=== PATIENT | male | born 1960 | race Caucasian/White ===

== ENCOUNTER 2023-05-14 10:57 | Emergency (ER) | payer OTHER, SELFPAY ==
[2023-05-14 10:57] VITALS: BMI 26.6
[2023-05-14 10:59] VITALS: BP 212/145
[2023-05-14 11:07] VITALS: BP 215/132
[2023-05-14 11:26] LABS: % Basophils 0.2 % (0-2); % Eosinophils 0.4 % (0-6); % Immature Granulocytes 0.5 % (0-0.5); % Lymphocytes 11.4 % (20.5-51.1); % Neutrophils 78.5 % (42.2-75.2); Absolute Lymphocytes 0.9 10^3/uL (1.2-3.4); Absolute Monocytes 0.7 10^3/uL (0.1-0.6); Absolute Neutrophils 6.5 10^3/uL (1.4-6.5); Hemoglobin 14.7 g/dL (13.0-18.0); Mean Corp Hgb Conc. 35.9 g/dL (33.0-37.0); Mean Corpuscular Hgb 32.7 pg (27.0-31.0); Mean Corpuscular Volume 91.1 fL (80.0-94.0); Mean Platelet Volume 9.8 fL (7.4-10.4); Nucleated Red Blood Cells % 0 % (-); Platelet Count 235 10^3/uL (130-400); Red Cell Dist. Width 12.2 % (11.5-14.5); White Blood Cell Count 8.2 10^3/uL (4.8-10.8)
[2023-05-14 11:50] LABS: ALT (SGPT) 24 U/L (0-50); AST (SGOT) 33 U/L (17-59); Albumin 4.8 g/dl (3.5-5.0); Alkaline Phosphatase 101 U/L (38-126); Blood Urea Nitrogen 13 mg/dl (9-20); Calcium 9.7 mg/dl (8.4-10.2); Carbon Dioxide 22 mmol/L (22-30); Chloride 102 mmol/L (98-107); Glucose 125 mg/dl (70-99); Potassium 4.4 mmol/L (3.5-5.1); Sodium 133 mmol/L (135-145); Total Bilirubin 1.1 mg/dl (0.2-1.3); eGFR > 60.00
[2023-05-14 12:00] VITALS: BP 194/110
[2023-05-14 13:06] VITALS: BP 184/106
[2023-05-14] MEDS: NSS 1000 IV (13:14)
[2023-05-14 13:30] VITALS: BP 175/103
--- NOTE | 2023-05-14 14:59 | ED.GENMED ---
History of Present Illness
General
Chief Complaint: Blood Pressure Problem
Source: patient
Exam Limitations: none
Time Seen by Provider: 05/14/23 12:22
Nursing documentation reviewed up to this point in time: agreed with
Travel History
Have you had any contact with someone who has COVID-19?: No
Do you have any symptoms of coronavirus? Fever > 100 degrees, chills, cough, shortness of breath, sore throat, loss of taste or smell, muscle aches, or headache?: No
History of Present Illness
History of Present Illness:
63year-old male with past ministry of anxiety presenting to the emergency department today with concerns of frequent panic attacks over the past week or so also an ongoing cough for the past few weeks. Also his blood pressure has been elevated in
the past few days at home as well as at an urgent care that he was seen in prior. He denies any specific chest pain shortness of breath fevers nausea vomiting or additional concerns.
Review of Systems
Review of Systems
Allergies reviewed?: Yes
All Other Systems: ROS reviewed and negative except as documented in HPI and ROS
Phy Exam
Physical Exam
Physical Exam:
GENERAL: Alert , in no apparent distress
EYE: pupils equal and reactive
NECK: Supple, no significant adenopathy.
ENT: o/p clr, mmm.
CARDIAC: Regular rate and rhythm .
LUNGS: Clear breath sounds bilaterally, no acute respiratory distress, no wheezes/rales/rhonchi
ABDOMEN: Soft, without focal tenderness, no r/g, no cvat
NEUROLOGICAL: Alert and oriented, no focal neuro deficits
SKIN: Warm and dry, skin intact.
MUSCULOSKELETAL: No edema, well perfused.
PSYCH: Normal and appropriate interaction.
Course
Orders/Labs/Results
Orders:
Orders
05/14/23 11:06
EKG [Electrocardiogram (*1)] Urgent
Reason for Study: Hypertension, Benign
CR Chest - 2 Views Urgent
Comment:
Reason For Exam: cough
05/14/23 11:07
EKG- Treatment ONCE
05/14/23 11:20
Complete Blood Count/With Diff Urgent
Comprehensive Metabolic Panel Urgent
05/14/23 12:44
0.9% Sodium Chloride 1000 ml [Nss] 1,000 ml IV BOLUS
Abnormal Lab Results
05/14/23
11:20
RBC 4.50 L 10^6/uL
(4.70-6.10)
MCH 32.7 H pg
(27.0-31.0)
Absolute Lymphs (auto) 0.9 L 10^3/uL
(1.2-3.4)
Absolute Monos (auto) 0.7 H 10^3/uL
(0.1-0.6)
Neutrophils % 78.5 H %
(42.2-75.2)
Lymphocytes % 11.4 L %
(20.5-51.1)
Sodium 133 L mmol/L
(135-145)
Glucose 125 H mg/dl
(70-99)
05/14/23 11:20
05/14/23 11:20
Vital Signs
Initial and Last Documented VS:
Initial Vital Signs
Temp Pulse Resp BP Pulse Ox
98.9 F 120 20 212/145 99
05/14/23 10:59 05/14/23 10:59 05/14/23 10:59 05/14/23 10:59 05/14/23 10:59
Last Documented Vital Signs
Temp Pulse Resp BP Pulse Ox
98.9 F 108 15 175/103 100
05/14/23 10:59 05/14/23 13:48 05/14/23 13:30 05/14/23 13:30 05/14/23 13:30
MDM/Problems Addressed
MDM/Problems Addressed:
63-year-old male presenting to the emergency department today with concerns of anxiety ongoing cough over the past 10 days as well as elevated blood pressure. Blood pressure was elevated as well as his pulse rate however the patient claims that he
feels very anxious and has been anxious over the past day or so. Does have a history of anxiety. Denies specific breath leg swelling recent trauma surgery immobilization, history of blood clots. Patient's lungs were clear patient generally
well-appearing no acute distress normal pulse afebrile. Labs were obtained without significant acute abnormalities. Chest x-ray without emergent pathology. Patient was monitored over roughly an hour and a half in the emergency department with
repeated blood pressures that were continually improving into the 170s systolic. Patient may have baseline elevated blood pressure and was started on lisinopril. His heart rate improving into the 80s and 90s. Very low likelihood of emergent
pathology causing this. Likely consistent with anxiety patient advised for close outpatient follow-up for reassessment. Return precautions given.
*Critical Care Note
Total Time (30-74mins, 75-104mins- exclusive of procedures): Not Applicable
ED Attending Note
-
Portions of this chart may have been created with voice recognition software.� Occasional wrong word or��sound alike� substitutions may have occurred due to the inherent limitations of voice recognition software.
Discharge Plan
Departure
Patient Disposition: Home (Routine Discharge)
Date of Disposition: 05/14/23
Time of Disposition: 14:59
Patient with high blood pressure during this ER visit?: Yes
Condition: Good
Covid-19: Not Applicable
Discharge Problem:
High blood pressure, Bronchitis
Instructions: High Blood Pressure (DC)
Prescriptions:
New
lisinopril 5 mg tablet
5 mg PO DAILY Qty: 14 0RF
Referrals:
[facility] [Provider Group]
UNKNOWN - PT DOES,NOT KNOW [Family Provider] -
Activity Restrictions/Additional Instructions:
You came to the emergency department today with concerns of ongoing cough. This is likely bronchitis and should hopefully go away over time. You can use treatments like honey to the sore throat lozenges to help with symptoms. Otherwise your blood
pressure was elevated. The blood pressure was down to 170s over 100 prior to discharge. This may indicate chronic high blood pressure. He is take lisinopril 1 tab daily and follow close with the primary care doctor within 1 week for reassessment.
Return to the emergency department for any worsening, new or concerning symptoms.
Interventions
Interventions:
*ED COVID-19 Vaccine History Last Done: 05/14/23 11:06
ED- Cardiac Assessment Last Done: 05/14/23 14:33
ED- Neurological Assessment Last Done: 05/14/23 14:33
ED- Pulmonary Assessment Last Done: 05/14/23 14:33
[2023-05-14 15:17] VITALS: BP 174/96
== END 2023-05-14 15:19 | disposition home or self-care (01) ==
LOC: EMR 10:57
PROVIDERS: EMERGENCY PHYSICIAN Emergency Medicine
DX: J40 Bronchitis, not specified as acute or chronic (principal); R03.0 Elevated blood-pressure reading, without diagnosis of hypertension; F41.9 Anxiety disorder, unspecified
CPT/HCPCS: 99285; 96360; 71046; 80053; 85025; 93005

== ENCOUNTER 2024-10-21 12:56 | Inpatient (IN) | payer OTHER, SELFPAY ==
[2024-10-21] VITALS (11 sets, daily range): BP systolic 101–145; BP diastolic 67–87; BMI 26.5; BMI 25.8
[2024-10-21 11:12] LABS: Hematocrit 41.9 % (39.0-52.0); Hemoglobin 14.3 g/dL (13.0-18.0); Mean Corp Hgb Conc. 34.1 g/dL (33.0-37.0); Mean Corpuscular Volume 93.7 fL (80.0-94.0); Nucleated Red Blood Cells % 0 % (-); Platelet Count 234 10^3/uL (130-400); Red Cell Dist. Width 12.0 % (11.5-14.5)
[2024-10-21 11:31] LABS: ALT (SGPT) 19 U/L (0-50); AST (SGOT) 32 U/L (17-59); Albumin 4.4 g/dl (3.5-5.0); Alkaline Phosphatase 94 U/L (38-126); Blood Urea Nitrogen 16 mg/dl (9-20); Calcium 10.2 mg/dl (8.4-10.2); Carbon Dioxide 20 mmol/L (22-30); Chloride 105 mmol/L (98-107); Estimated Creatinine Clearance 89 ml/min; Glucose 132 mg/dl (70-99); Potassium 4.9 mmol/L (3.5-5.1); Sodium 137 mmol/L (135-145); Total Protein 7.3 g/dl (6.3-8.2); eGFR > 60.00
[2024-10-21 11:37] LABS: Troponin I 2.530 ng/ml
--- NOTE | 2024-10-21 11:43 | ED.GENMED ---
History of Present Illness
General
Chief Complaint: Chest Pain
Source: patient
Exam Limitations: none
Time Seen by Provider: 10/21/24 11:03
History of Present Illness
History of Present Illness:
Patient presents for evaluation of chest pain. Patient noted some brief low back pain upon getting up 4 to 5 days ago. This only lasted for 10 to 15 minutes each day and resolved. However over the weekend he developed intermittent episodes of
chest tightness. Not exertional no shortness of breath no diaphoresis. He had a brief episode this morning also. Saw his primary physician who was concerned about EKG changes and sent for further evaluation
Past History
Past History
ED Past Medical History: HTN and Hypercholesterolemia
ED Past Surgical History: Orthopedic
Review of Systems
Review of Systems
All Other Systems: Not applicable
ABD/GI: Reports no symptoms
Neurological: Reports no symptoms
Phy Exam
Physical Exam
Physical Exam:
GENERAL: Alert and oriented in no apparent distress
EYE: Orbits normal.
NECK: Supple, no significant adenopathy.
ENT: Pharynx without erythema
CARDIAC: Mildly tachycardic and regular no murmur
LUNGS: Clear breath sounds,normal
ABDOMEN: Soft, without focal tenderness or distention
NEUROLOGICAL: Alert and oriented , grossly non-focal
SKIN: Warm and dry, no rash or lesion, no discoloration, skin intact.
MUSCULOSKELETAL: No edema,no deformity.Good color
PSYCH: Normal and appropriate interaction.
Scores
Heart Score for Chest Pain Patients
STEMI patient?: No
History: Moderately Suspicious
ECG: Normal
Age: >45 - <65 years
Risk Factors: 1 or 2 Risk Factors
Troponin: >/= 3 x Normal Limit
Heart Score for Chest Pain Patients: 5
Heart Score Risk: 20.3% MACE over next 6 weeks
Course
Orders/Labs/Results
Orders:
Orders
10/21/24
Electrocardiogram (*1) Stat
Comment: DONE
10/21/24 Breakfast
NPO
Allow oral meds: Yes
Allow clear liquids: No
10/21/24 11:00
Complete Blood Count/With Diff Urgent
Comprehensive Metabolic Panel Urgent
Glycohemoglobin (HgbA1c) Urgent
NT-proBNP Urgent
Troponin I Urgent
10/21/24 11:42
Heparin 4,000 units IV NOW STA
Nursing to Place Non Medication Order As Directed
Physician Order: PTT 6 hours after initial start of Heparin infusion
Above order entered?: Yes
10/21/24 11:45
Heparin 36793 Units/250 ml 25,000 units in 250 ml IV PER PROTOCOL
Weight to be used for heparin protocol in kilograms (kg):: 86.2
Protocol:: Cardiac Tx/Acute Coronary
PTT Goal Range to be used:: PTT 73 to 111 seconds
Order type:: Initial
INITIAL Infusion Dose (UNITS/KG/hr) & then follow protocol:: 12 units/kg/hr
Infusion Dose in UNITS/hr & then follow protocol (UNITS/hr):: 1,000
INFUSION RATE in mL/hr & then follow protocol (mL/hr):: 10
PTT less than or equal to 64 seconds:: Increase rate by 200 units/hr (+ 2 mL/hr)
PTT 64.1 to 72.9 seconds:: Increase rate by 100 units/hr (+ 1 mL/hr)
PTT 73 to 111 seconds:: Target Range. No change in rate.
PTT 111.1 to 130.9 seconds:: Decrease rate by 100 units/hr (- 1 mL/hr)
PTT 131 to 199.9 seconds:: HOLD for 1 hr. Then decrease rate by 200 units/hr (- 2 mL/hr)
PTT greater than or equal to 200 seconds:: HOLD for 2 hrs & Notify Provider. Then decrease by 200 units/hr (-
2 mL/hr)
Lab follow-up:: Each change, PTT q6h until 2 consecutive are therapeutic. Then PTT
daily.
10/21/24 11:47
PTT Urgent
Comment: Obtain baseline before beginning heparin infusion if not already collected
10/21/24 12:06
Aspirin Chewable [Low Strength Aspirin] 324 mg PO NOW STA
10/21/24 12:15
Admit/Transfer Patient As Directed
Co-Sign Provider:
Level of Care: Inpatient admission
Assign to:: IVU
Physician / Group: caryl
Diagnosis: chest pain
Reason for Hospitalization: chest pain
Expected length of stay greater than two midnights?: Yes
ELOS- Estimated Length of Stay in days: 3
I certify the patient meets the requirements for IP care: Yes
10/21/24 12:16
Code Status As Directed
Resuscitation Status: Full Code
PRN Pain Medication Management As Directed
May give lesser potent ordered pain med per pt: Yes
preference::
Protocol:: Medication orders for pain may be administered in a
manner that supports deferring to patient preference
when the pt is:
- Requesting an ordered lesser potent pain medication.
Least to most potent pain medications are defined
as: acetaminophen < NSAID < tramadol < opioids
(morphine, oxycodone, hydromorphone).
- Requesting a lesser dose of the same medication IF
ORDERED.
- Requesting a less intrusive route of administration
if both routes are prescribed by the provider (PO <
IV).
10/21/24 12:32
Echo 2D MMode Color/Doppler Routine
Reason for Study: chest pain
10/21/24 13:22
Electrocardiogram (*1) Q6H
Reason for Study: Chest Pain
Comment: at admission and Q3H for total of 3, to be done with each troponin
10/21/24 13:22
CARDIOLOGY CONSULT Routine
Consulting Provider: Kristopher Dimas
Was physician already notified: Yes
Case Management Consult Once
Case Management Consult: Other
Comment: Substance abuse counseling
DIETARY IP CONSULT Routine
Reason for Consult: Nutrition support, possible refeeding guidelines
Alcohol Urgent
B-Hydroxybutyrate Urgent
GGTP Urgent
Magnesium Urgent
Phosphorus Urgent
Prothrombin Time Urgent
Urinalysis Routine
Urine Drug Abuse Screen Routine
Activity As Directed
Activity Level: As Tolerated
INT (Intravenous Needle Therapy) As Directed
Comment: maintain peripheral IV access
Intake/ Output As Directed
Frequency: Per unit guidelines
MSAS SCORE As Directed
MSAS Score 0-4: Repeat MSAS every 2 hours until 0-4 for three consecutive assessments, then every 4 hours x 48
hours.
MSAS Score 5-7: For MILD withdrawl symptoms. Repeat MSAS and RASS every 2 hours
MSAS Score 8-11: For MODERATE withdrawal symptoms. Repeat MSAS and RASS every 1 hour. Consider ICU or IMU
level of care.
MSAS Score > 11: For SEVERE withdrawal symptoms. Repeat MSAS and RASS every 1 hour. Notify provider, consider
ICU level of care.
MSAS Additional Instructions: If no improvement or no decrease in score from severe to moderate within 12
hours, consult psychiatry
MSAS Notify Provider: Notify provider if patient requires more than 10 mg of Lorazepam in eight hour period.
Vital Signs As Directed
Frequency: q4h
Weight As Directed
Frequency: Daily
10/21/24 14:00
Troponin I Q3H
Comment: at admit & Q3H for 3 total including ED draws, obtain ECG with each level
10/21/24 17:00
Troponin I Q3H
Comment: at admit & Q3H for 3 total including ED draws, obtain ECG with each level
10/21/24 19:22
Electrocardiogram (*1) Q6H
Reason for Study: Chest Pain
Comment: at admission and Q3H for total of 3, to be done with each troponin
10/22/24 01:22
Electrocardiogram (*1) Q6H
Reason for Study: Chest Pain
Comment: at admission and Q3H for total of 3, to be done with each troponin
10/22/24 06:00
Cardiovascular Evaluation IN AM
Abnormal Lab Results
10/21/24
11:00
RBC 4.47 L 10^6/uL
(4.70-6.10)
MCH 32.0 H pg
(27.0-31.0)
Abs Immat Gran (auto) 0.1 H 10^3/uL
(0-0.05)
Absolute Neuts (auto) 8.1 H 10^3/uL
(1.4-6.5)
Absolute Lymphs (auto) 0.8 L 10^3/uL
(1.2-3.4)
Absolute Monos (auto) 0.8 H 10^3/uL
(0.1-0.6)
Absolute Eos (auto) 0.8 H 10^3/uL
(0-0.7)
Immature Gran % 0.7 H %
(0-0.5)
Neutrophils % 77.1 H %
(42.2-75.2)
Lymphocytes % 7.4 L %
(20.5-51.1)
Eosinophils % 7.4 H %
(0-6)
Carbon Dioxide 20 L mmol/L
(22-30)
Glucose 132 H mg/dl
(70-99)
Troponin I 2.530 H* ng/ml
10/21/24 11:00
10/21/24 11:00
Vital Signs
Initial and Last Documented VS:
Initial Vital Signs
Pulse Resp Pulse Ox
110 20 96
10/21/24 10:40 10/21/24 10:40 10/21/24 10:40
Last Documented Vital Signs
Temp Pulse Resp BP Pulse Ox
99 F 102 21 117/87 95
10/21/24 10:41 10/21/24 14:15 10/21/24 13:30 10/21/24 14:00 10/21/24 14:00
MDM/Problems Addressed
Differential Diagnosis Includes:
Patient with intermittent nonexertional chest tightness over the weekend. Episode this morning also. Had some brief low back pain. However this was brief and resolved. Very low suspicion for vascular emergency. However I am concerned about
cardiac with a positive troponin. Heparin aspirin, discussed with cards and hospitalist
*Pulse Oximetry
SaO2: 97
Oxygen Mode of Delivery: Room air
Patient hypoxic: no
*EKG
Interpreted by ED Provider?: Yes
Interpretation: abnormal
Comparison EKG: no changes
Heart Rate: 110
Rate: tachycardiac
Rhythm: sinus
[place]: normal axis
Interval: normal interval
QRS Pattern: normal QRS
Ischemia: non-specific ST changes
*Insurance Analyst Interpretation
Rate: tachycardiac
Interpretation: normal
Heart Rate: 106
Rhythm: sinus
*Critical Care Note
Total Time (30-74mins, 75-104mins- exclusive of procedures): Not Applicable
Update Note
Update Note:
1140.... Positive troponin. Chest pain was peak over the weekend and likely the timing of this. Minimal symptoms this morning. Currently asymptomatic. Did take an aspirin today. Cardiology and hospitalist contacted. Will heparinize.
ED Attending Note
-
Portions of this chart may have been created with voice recognition software.� Occasional wrong word or��sound alike� substitutions may have occurred due to the inherent limitations of voice recognition software.
Discharge Plan
Departure
Patient Disposition: Admit
Date of Disposition: 10/21/24
Time of Disposition: 11:43
Presentation/result/management discussed w/ accepting MD/DO: Cardiology
Discharge Problem:
Non-STEMI IN
Interventions
Interventions:
*Risk Screen - Suicide Last Done: 10/21/24 10:47
*General Assessment Last Done: 10/21/24 10:52
*Neglect/Abuse Screening Last Done: 10/21/24 10:52
*ED- Fall Risk Assessment Last Done: 10/21/24 10:52
*ED COVID-19 Vaccine History Last Done: 10/21/24 10:52
*Nursing Disposition Last Done: 10/21/24 14:29
ED- Cardiac Assessment Last Done: 10/21/24 10:54
Discharge Date and Time
Discharge Date/Time: 10/21/24 14:29
--- NOTE | 2024-10-21 12:02 | HPS.HSE ---
Family Physician
-
Family Physician: Joe Wilson MD, Resident
Chief Complaint
-
chest pain
History of Present Illness
64 year old with PMH for HTN presented to us with pain across the chest since Monday. patient stated worse with deep breath. he was lightheaded. he complained of nausea and some diarrhea over the weekend. Denied fever, chills, congestion, cough.
Patient denied any headache, syncope. Patient denies abdominal pain, nausea, vomiting or diarrhea. Patient denies dysuria, hematuria.
Upon arrival he was noted to have elevated troponin. Heparin and aspirin ordered in ER. Admitting for further management
Medical History
Past Medical History
Past Medical History: Reports Other
Additional Past Medical History:
Panic attack
Hypertension
Past Surgical History: Reports Other
Additional Past Surgical History:
Right knee surgery, wisdom teeth removed, molar removed
Social History
Tobacco: Non-smoker
Alcohol: Daily (5-6 drinks per day)
Drug: None
Family History
Family History: Other (father with [place])
Allergies / Home Medications
Allergies reflects when Allergies were last updated in [employer].
Home Medications with original date entered in [employer]
Allergy/Medication List:
Allergies
Allergy/AdvReac Type Severity Reaction Status Date / Time
NKA - No Known Allergies Allergy Unknown Uncoded 10/21/24 10:41
Home Medications
aspirin 81 mg tablet,delayed release 81 mg PO DAILY 10/21/24
glucosamine sulf dipot chlr,msm,chond 550 mg-C 30 mg-falguni 1 mg capsule (Glucosamine Chondroitin) 1 cap PO DAILY 10/21/24
lisinopril 10 mg tablet 10 mg PO DAILY 10/21/24
psyllium 1 packet PO DAILY 10/21/24
therapeutic multivitamin 1 tab PO DAILY 10/21/24
turmeric 400 mg capsule 400 mg PO DAILY 10/21/24
Review of Systems
-
Constitutional: Reports No Symptoms
EENT: Reports No Symptoms
Respiratory: Reports No Symptoms
Cardiac: Reports Chest Pain
Abdomen/GI: Reports Nausea
: Reports No Symptoms
Musculoskeletal: Reports No Symptoms
Skin: Reports No Symptoms
Neurological: Reports No Symptoms
Endocrine: Reports No Symptoms
Hematologic/Lymphatic: Reports No Symptoms
Psych: Reports No Symptoms
Physical Exam
Vital Signs
Vital Signs
Temp Pulse Resp BP Pulse Ox
99 F 114 18 128/87 97
10/21/24 10:41 10/21/24 10:41 10/21/24 10:41 10/21/24 10:41 10/21/24 11:44
Physical Exam
General: Well Developed, Well Nourished and No Apparent Distress
HEENT: NormoCephalic, Moist mucous membranes and Atraumatic
Respiratory: Clear
Cardiac: S1/S2 and Regular Rhythm; No Murmur or Rub
GI: Soft, Non Tender, Non Distended and Normal Bowel Sounds; No Organomegaly
Rectal: Deferred by Provider
Musculoskeletal: No Clubbing, No Cyanosis and No Edema
Skin: No Rash
Neuro: AO x 3 and Nonfocal/grossly intact
Psych: Calm
Laboratory Results
-
10/21/24 11:00
10/21/24 11:00
Laboratory Results
Total Bilirubin 0.8 mg/dl (0.2-1.3) 10/21/24 11:00
AST 32 U/L (17-59) 10/21/24 11:00
ALT 19 U/L (0-50) 10/21/24 11:00
Alkaline Phosphatase 94 U/L (38-126) 10/21/24 11:00
Troponin I 2.530 ng/ml H* 10/21/24 11:00
Data Reviewed
-
Lab Data: Labs Reviewed by me
Impression/Plan
-
# NSTEMI
-Troponin 2.530, continue to trend troponin
- Aspirin, heparin drip
- Will keep patient n.p.o.
- Plan for cardiac cath
- Cardiology following patient
#alcohol abuse
-drinks 5-6 beers daily
-alcohol protocol
-monitor MSAS score.
# Essential hypertension
- Lisinopril continue with hold parameter
# DVT prophylaxis
- Heparin
# CODE STATUS
- Full code
[2024-10-21 12:10] LABS: APTT 30.4 Sec (23.4-35.0)
[2024-10-21] MEDS: LOW STRENGTH ASPIRIN 324 MG PO (12:26)
--- NOTE | 2024-10-21 12:34 | CON.CAR ---
Addendum entered and electronically signed by Kristopher Dimas MD 10/21/24 14:10:
Patient seen and examined in collaboration with LIBER[facility]S DEAN; agree with below
- 64-year-old male with hypertension, hyperlipidemia (untreated), psoriasis, family history of CAD (father had an [place] in his 60s), and alcohol dependence (4-5 beers daily) presenting with chest pain.
- Cardiac enzymes elevated at 2.53, consistent with an NSTEMI.
- Cardiac catheterization recommended for definitive coronary assessment.
- The patient has been given full-dose aspirin and intravenous heparin.
- Will start low-dose metoprolol tartrate 25 mg twice daily to help manage tachycardia.
- Check lipid panel, hemoglobin A1c, TSH.
- Start statin.
- Telemetry follow-up.
- Further recommendations based on cardiac catheterization findings; will follow.
Original Note:
Consultation
Consultation Request
Date/Time Consultation Requested: 10/21/2024 1200
Date/Time Consultation Performed: 10/21/2024 1200
Requesting Provider: Peyton ACOSTA
Performing Provider:
Reason for Consultation: CP, abnormal troponin
Medical History
-
Chief Complaint: CP
History of Present Illness:
64-year-old patient with history of hypertension who developed chest tightness and pressure over the weekend. At its worst it was 7 out of 10. This was at rest. He did not think that activity made it worse. He may have been slightly diaphoretic
but it was hot. In the house and air conditioning he was not diaphoretic, there was no nausea and no radiation. It waxed and waned throughout Monday and Monday. He thought Monday it was improving. He woke this morning and had similar symptoms
but they were much less than what he experienced on Monday. He went to his PCP EKG was done and he was evaluated and sent to the emergency room for evaluation. He currently denies chest pain. Of note he did have some mild lower back discomfort
on Monday but it lasted maybe 10 minutes and went away. He felt that was not associated with his chest tightness. He also had some mild diarrhea both days. He usually will exercise with playing tennis or cycling. The last time he did a bike
ride was approximately 1 week ago and he was able to ride for 10 or 11 miles without chest pain or Shortness of breath.
Past Medical History
Past Medical History: HTN and Hypercholesterolemia
Past Surgical History: None (knee surgery, wisdom teeth)
Social History
Tobacco: Non-Smoker
Alcohol: Daily (4-5 beers)
Drug: None
Living: Alone
Family History
Family History: Other (Father [place] at 68- pt unsure if interventions )
Allergies / Home Medications
Allergy/AdvReac Type Severity Reaction Status Date / Time
NKA - No Known Allergies Allergy Unknown Uncoded 10/21/24 10:41
�Medication �Instructions �Recorded �Confirmed �Type
aspirin 81 mg tablet,delayed 81 mg PO DAILY 10/21/24 10/21/24 History
release
glucosamine sulf dipot 1 cap PO DAILY 10/21/24 10/21/24 History
chlr,msm,chond 550 mg-C 30 mg-falguni
1 mg capsule (Glucosamine
Chondroitin)
lisinopril 10 mg tablet 10 mg PO DAILY 10/21/24 10/21/24 History
psyllium 1 packet PO DAILY 10/21/24 10/21/24 History
therapeutic multivitamin 1 tab PO DAILY 10/21/24 10/21/24 History
turmeric 400 mg capsule 400 mg PO DAILY 10/21/24 10/21/24 History
Review of Systems
-
History Source: Patient
Constitutional: No Symptoms
EENT: No Symptoms
Respiratory: No Symptoms
Cardiac: Chest Pain (describes as tightness, none currently )
Abdomen/GI: Diarrhea ( 10/19, 10/20 )
: No Symptoms
Musculoskeletal: No Symptoms
Endocrine: No Symptoms
Physical Exam
Vital Signs
Temp Pulse Resp BP Pulse Ox
99 F 114 18 128/87 97
10/21/24 10:41 10/21/24 10:41 10/21/24 10:41 10/21/24 10:41 10/21/24 11:44
Lab Results
10/21/24 11:00
10/21/24 11:00
Troponin I 2.530 ng/ml H* 10/21/24 11:00
Physical Exam
General: Well Developed, No Apparent Distress and Comfortable
HEENT: Normocephalic and Moist Mucous Membranes
Respiratory: Clear
Cardiac: S1/S2 and Regular Rhythm
Breast: Deferred by me
GI: Soft, Non Tender and Normal Bowel Sounds
Musculoskeletal: No Edema
Skin: Warm and Dry
Neuro: AO x 3
Impression / Plan
-
CP/NSTEMI:
- Symptoms initially started over the weekend. He had mild chest discomfort/tightness this morning. Currently denies CP
- troponin 2.5 on arrival. trend
- asa load in ER given, IV heparin in ER
- pt requires intensive monitoring
- check echo
- LHC today
- lipid profile
HTN:
-lisinopril as OP
Hyperglycemia:
-glucose elevated, check hgba1c
Data Reviewed
-
EKG: Tracing Personally Visualized and interpreted (EKG 10/21/24 ST 110 bpm, non specific inferior changes and ST abn)
Labs: Labs Reviewed by me and Discussed with Physician
Old Records: Reviewed
--- NOTE | 2024-10-21 12:58 | W.PN.UPDATE ---
Update Note
Progress Note Update
This is an addendum to the H&P written by Peyton Gatica on 10/21/2024. �Patient seen and examined independently with MECHANICAL MAINTENANCE ENGINEER.
64-year-old male past medical history of hypertension, hyperlipidemia, panic attacks, plaque psoriasis, presenting with chest pain since monday with lightheadness and nausea and diarrhea over weekend. Drink 4-5 beers daily.�
EKG shows sinus tachycardia. �Subtle ST depressions in lead II, V5, V6. �T wave inversions in aVR. �Troponin of 2.5.
Patient with NSTEMI.� No chest pain currently. Aspirin started. �Heparin drip. �Check A1c and lipid panel.� Trend troponins. Echo. Cardiology consulted. Start statin. N.p.o. for potential catheterization today. Alcohol withdrawal protocol.��
--- NOTE | 2024-10-21 13:01 | CM ---
CM reviewed chart and met with pt bedside in ED.
Lives alone in first floor apartment, 1 DORY
Independent in ADLs, personal care and ambulation at baseline. 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
No DME, no hx VN/SNF
PCP: Joe Wilson
Pharmacy: [facility]
Discharge plan: Anticipate home pending ongoing medical evaluation
[2024-10-21] MEDS: HEPARIN 4000 UNITS IV (13:22)
[2024-10-21] MEDS: LOPRESSOR 25 MG PO (13:23)
[2024-10-21 14:15] LABS: Glycohemoglobin (HgbA1c) 5.6 % (4.0-5.6)
[2024-10-21 15:03] LABS: ACT-LR - POC 258 Seconds (116-155)
[2024-10-21 15:42] LABS: ACT-LR - POC 231 Seconds (116-155)
[2024-10-21 16:28] LABS: Troponin I 2.550 ng/ml
[2024-10-21] MEDS: LIPITOR 80 MG PO (17:49)
--- NOTE | 2024-10-21 17:51 | CONSULT.CT ---
Consultation
-
Date/Time Consultation Requested: 10/21/24
Date/Time Consultation Performed: 10/21/24
Requesting Provider: Binh Grijalva
Performing Provider: Phuong Feldman MD
Reason for Consultation: NSTEMI/MVCAD -eval for CABG
Patient History
Physicians
Family Physician: Joe Wilson
Outpatient It Associate: none PALS SPECIALIST
Inpatient It Associate: [facility]
History of Present Illness
64-year-old male with past medical history significant for hypertension (diagnosed 2023), hyperlipidemia (refused statin), plaque psoriasis and daily alcohol use was admitted on 10/21/2024 with substernal chest pain since Monday associated with
lightheadedness, nausea, and intermittent diarrhea. Troponin I 3.22, consistent with an NSTEMI. Patient underwent cardiac catheterization on 10/21/2024 which reported 2 vessel coronary disease (LAD & LCx). He was initiated on IV heparin, aspirin,
and Toprol postcatheterization. Currently pain-free resting in bed.
Pertinent negatives; denies CVA/TIA, asthma/COPD, hepatitis, bowel/bladder disease, DVT/PE, dysphagia, cancer.
Past Medical History
Past Medical History: HTN, Hypercholesterolemia, Psychiatric (panic attacks) and Other (plaque psoriasis)
Past Surgical History
Past Surgical History: Orthopedic (R knee arthroscopy 24 years ago)
Dental History
N/A
Family History
Mother: at Age (86) and Cause of (dementia)
Father: at Age (79) and Cause of (CAD>had [place] in his 60s)
Social History
Alcohol: Daily (4-5 beers/day)
Drug: None
Tobacco: Non-Smoker
Personal: Single
Living: Alone
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
Allergies
Allergy/AdvReac Type Severity Reaction Status Date / Time
NKA - No Known Allergies Allergy Unknown Uncoded 10/21/24 10:41
Home Medications
�Medication �Instructions �Recorded �Confirmed �Type
aspirin 81 mg tablet,delayed 81 mg PO DAILY 10/21/24 10/21/24 History
release
glucosamine sulf dipot 1 cap PO DAILY 10/21/24 10/21/24 History
chlr,msm,chond 550 mg-C 30 mg-falguni
1 mg capsule (Glucosamine
Chondroitin)
lisinopril 10 mg tablet 10 mg PO DAILY 10/21/24 10/21/24 History
psyllium 1 packet PO DAILY 10/21/24 10/21/24 History
therapeutic multivitamin 1 tab PO DAILY 10/21/24 10/21/24 History
turmeric 400 mg capsule 400 mg PO DAILY 10/21/24 10/21/24 History
Review of Systems
-
History Source: Patient
General: Reports No Symptoms
HEENT: Reports No Symptoms
Respiratory: Reports No Symptoms
Cardiac: Reports Chest Pain
Abdomen/GI: Reports No Symptoms
: Reports No Symptoms
Musculoskeletal: Reports No Symptoms
Skin: Reports No Symptoms
Neurological: Reports No Symptoms
Vascular: Reports No Symptoms
Physical Exam
Vital Signs
Temp 99 F 10/21/24 10:41
Temp route: Oral 10/21/24 10:41
Pulse 87 10/21/24 17:15
Resp Rate 21 10/21/24 13:30
Blood pressure 123/76 10/21/24 17:00
MAP (cuff-Galina Monitor) 90 10/21/24 17:00
SaO2 99 10/21/24 16:45
Oxygen Mode of Delivery Room air 10/21/24 11:44
Acceptable pain level during hospitalization? Unable to answer 10/21/24 10:41
Can the patient verbally communicate their pain? Yes 10/21/24 16:34
Actual Weight 83.915 kg 10/21/24 16:34
Body Mass Index (BMI) 25.8 10/21/24 16:34
Labs
10/21/24 11:00
10/21/24 11:00
APTT 30.4 Sec (23.4-35.0) 10/21/24 11:47
Hemoglobin A1c Cancelled 10/21/24 13:22
Troponin I Cancelled 10/21/24 17:00
Zso-Y-Kgklekjjqov Pept 3580 pg/ml 10/21/24 11:00
Diagnostic Studies
Left heart catheterization 10/21/2024:
LM: Eccentric 20-30% distal vessel stenosis.
LAD: Large vessel giving rise to a large D1 and moderate caliber D2. There is a 50% calcified proximal stenosis and a long up to 70% calcified stenosis in the mid vessel ending just at the D2 to bifurcation.
LCx: Moderate caliber vessel giving rise to moderate caliber OM1 and moderate caliber OM2. There is an long up to 80% stenosis spanning from the mid circumflex just before the OM 2 into the OM2 itself.
RCA: Very large vessel giving rise to a large RPDA and two large RPL branches. There is mild diffuse disease.
Exam
General: Well Developed, Well Nourished and No Apparent Distress
HEENT: Normocephalic, Anicteric, Moist Mucous Membranes and PERRLA
Neck: Trachea Midline
Respiratory: Clear
Cardiac: S1/S2 and Regular Rhythm
GI: Soft, Non Tender and Non Distended
Rectal: Deferred by Provider
Skin: Warm and Dry
Neuro: AO x 3, No Motor Deficits and Nonfocal/Grossly Intact
Extremities: Pulses (+2/4 DP pulses B/L)
Lymph: No Lymphadenopathy
Psych: Calm
Assessment / Plan
-
64 year old male admitted with chest pressure and R/I for NSTEMI. Found to have 2VCAD (LAD & LCx) -treated with IV Heparin
- surgeon to review imaging
- TTE pending (ordered)
- patient adamantly wants PCI option
- if deemed a surgical candidate and he agrees, need pre-op diagnostics ordered
Data Reviewed
-
EKG: Report Reviewed by me and Discussed with Physician
Shipping Coordinator: Report Reviewed by me and Discussed with Physician
Radiology: Report Reviewed by me and Discussed with Physician
Labs: Labs Reviewed by me and Discussed with Physician
[2024-10-21 17:54] LABS: GGTP 39 U/L (15-73); Magnesium 1.9 mg/dl (1.6-2.3)
[2024-10-21 17:59] LABS: Troponin I 3.220 ng/ml
--- NOTE | 2024-10-21 18:01 | ITS.CL.PN ---
Advanced Solutions Architect - Procedure Note
Procedure
Procedure Note:
CARDIAC CATHETERIZATION REPORT
Date of Procedure: 10/22/2019
Referring: Dr. Kristopher Dimas MD
Indication: NSTEMI
PROCEDURE(S)
1. left heart catheterization
2. coronary angiography
3. iFR LAD
4. iFR D2
ACCESS:
1. 6F right radial artery (closure: radial band; abandoned due to severe radial artery spasm)
2. 6F right femoral artery (closure: 6 Greenlandic Angio-Seal x 1)
CATHETERS
1. 6F JR4
2. 6F JL3.5
3. 6F EBU 3.75 guide
MODERATE SEDATION: 60 minutes of moderate sedation was utilized. An independent medical administrative specialist was present to assist with and help manage the patient's level of consciousness and physiologic status.
HEMODYNAMIC DATA
LV 112/8 (EDP 15) mmHg
AO 111/72 (mean 88) mmHg
CORONARY ANGIOGRAPHY
Dominance: Right
LM: There is an eccentric 20-30% distal vessel stenosis.
LAD: Large vessel giving rise to a large D1 and moderate caliber D2. There is a 50% calcified proximal stenosis and a long up to 70% calcified stenosis in the mid vessel ending just at the D2 to bifurcation.
LCx: Moderate caliber vessel giving rise to moderate caliber OM1 and moderate caliber OM2. There is an long up to 80% stenosis spanning from the mid circumflex just before the OM 2 into the OM2 itself.
RCA: Very large vessel giving rise to a large RPDA and two large RPL branches. There is mild diffuse disease.
iFR of D2
An Omni wire was flushed and zeroed outside the body and then advanced to the left main. The wire introducer was removed and the catheter flushed with saline, after which pressure of the wire and guide were normalized. The wire was advanced to the
D2 and iFR recorded at 0.83. iFR pullback was performed noting the majority of the contribution to be from the distal lesion with iFR returning to 0.95 prior to the proximal lesion which accounted for the remaining contribution. On return to the
left main, iFR appropriately normalized to ~1.0, confirming lack of wire drift.
iFR of distal LAD
An Omni wire was flushed and zeroed outside the body and then advanced to the left main. The wire introducer was removed and the catheter flushed with saline, after which pressure of the wire and guide were normalized. The wire was advanced to the
distal LAD and iFR recorded at 0.79. iFR pullback was performed noting the majority of the contribution to be from the distal lesion with iFR returning to 0.95 prior to the proximal lesion which accounted for the remaining contribution. On return to
the left main, iFR appropriately normalized to ~1.0, confirming lack of wire drift. The similarity between this and the IFR obtained from the D2 suggests that the contribution of the lesion in the LAD just beyond the D2 takeoff is minimal.
RADIATION: dose 893 mGy; DAP 71 Gy*cm2; fluoroscopy time 28.3 min
CONCLUSIONS
1. Two-vessel coronary artery disease as described with likely culprit lesion of the OM2 versus mid to distal LAD
2. iFR positive stenosis in the mid-distal LAD with minor contribution from the proximal LAD stenosis
3. Mildly elevated LV filling pressure no aortic stenosis
RECOMMENDATIONS
1. after heart team discussion with CT surgery and patient, decision made to proceed with multivessel stenting of the OM2, mid to distal LAD, +/- proximal LAD
2. patient with significant concerns about cost of medications. Will check with case management regarding cost of prasugrel and ticagrelor and load with 1 of these agents if affordable, Plavix if not
3. cont heparin drip
4. high intensity statin for eventual goal LDL<55
5. metoprolol tartrate
6. check Lp(a)
7. check echo
8. NPO@MN
Copy to: Dr. Joe Wilson MD (PCP)
Signed: Jemal Grijalva MD, PhD
--- NOTE | 2024-10-21 18:57 | PTCARENOTE ---
~1630: Patient received from CCL. Pt Aox4, NSR 80s-90s on tele, SBP 120s, RA satting 98%. Pt denies pain at this time. R radial TR band in place, sit CDI. R fem site dressing CDI and soft. Pt bedrest until 1900. Admission charting completed. pt
oriented to room and call tran system. All needs met at this time, call tran within reach.
~1700: EKG obtained and bloodwork drawn by PCT and sent to lab.
~1800: Air started to be removed from TR band. Site CDI with no oozing noted.
~[id number]: Phuong COMMERCIAL OCEAN CLAMMER with CTS in to talk with patient. Cardiology also in to discuss plan and CCL findings with patient. Air continued to be removed from TR band per protocol. VSS at this time and denies CP. R groin site soft, CDI. All needs met
at this time, call tran within reach. Handoff report given to nightshift RN.
[2024-10-21] MEDS: THIAMINE INJECTION 200 MG IV (20:25)
[2024-10-21 20:41] LABS: Urine Character Clear (Clear)
[2024-10-21 20:42] LABS: APTT 34.0 Sec (23.4-35.0)
[2024-10-21] MEDS: HEPARIN 25000 UNITS/250 ML IV (21:01)
[2024-10-21 21:27] LABS: Urine Red Blood Cell 0-2 /HPF (0-2); Urine Squamous Cell 0-2 /LPF (Few)
[2024-10-21 23:45] LABS: Troponin I 3.170 ng/ml
[2024-10-22] VITALS (10 sets, daily range): BP systolic 114–141; BP diastolic 60–92; BMI 26.1
--- NOTE | 2024-10-22 02:45 | PTCARENOTE ---
Pt NSR on monitor, AAOx4 MSAS per protocol. Heparin restarted per order. Pt denies any pain at this time. Pt oob with x1 assist. Cath sides CDI. call tran in reach
[2024-10-22 04:37] LABS: Hematocrit 35.5 % (39.0-52.0); Hemoglobin 12.3 g/dL (13.0-18.0); Mean Corp Hgb Conc. 34.6 g/dL (33.0-37.0); Mean Corpuscular Volume 92.4 fL (80.0-94.0); Platelet Count 199 10^3/uL (130-400); Red Cell Dist. Width 12.2 % (11.5-14.5)
[2024-10-22 04:48] LABS: APTT 43.5 Sec (23.4-35.0)
[2024-10-22 05:00] LABS: Blood Urea Nitrogen 18 mg/dl (9-20); Calcium 8.7 mg/dl (8.4-10.2); Carbon Dioxide 20 mmol/L (22-30); Chloride 109 mmol/L (98-107); Estimated Creatinine Clearance 101 ml/min; Glucose 110 mg/dl (70-99); HDL Cholesterol 42 mg/dl; LDL Cholesterol, Calculated 103 mg/dl; Potassium 4.3 mmol/L (3.5-5.1); Sodium 135 mmol/L (135-145); Very Low Density Lipoprotein 24 mg/dl (0-30); eGFR > 60.00
[2024-10-22 05:19] LABS: Troponin I 3.080 ng/ml
[2024-10-22] MEDS: ZESTRIL 10 MG PO (09:20)
[2024-10-22] MEDS: THIAMINE INJECTION 200 MG IV ×2 (09:21→20:22)
[2024-10-22] MEDS: LOW STRENGTH ASPIRIN 81 MG PO (09:21)
[2024-10-22] MEDS: FOLVITE 1 MG PO (09:21)
[2024-10-22] MEDS: TOPROL XL 25 MG PO (09:21)
--- NOTE | 2024-10-22 11:08 | CM ---
Pricing on Ticagrelor and Effient. Patient does not have a prescription plan. He uses [facility]. Ticagrelor costs $31 and Effient costs $19. Patient would prefer the least expensive. Effient is available at [facility] for $19. Patient
prefers to go there for the Effient, but would like the rest of his medications to go to [facility].
--- NOTE | 2024-10-22 11:30 | CM ---
Chart reviewed. Patient is independent of ADLS, lives alone in a apartment, 1 DORY, 0 DME. Offered patient alcohol and substance abuse counseling information with [facility], patient is not interested. CM to follow
--- NOTE | 2024-10-22 11:43 | CARDSERVLU ---
Echocardiogram with Lumason completed after protocol screening completed. Allergies verified.
Patent IV site: _Right arm 20 G PC site clear
____
IV site flushed with 0.9% NaCl pre and post administration.
Diluted bolus method utilized to enhance visualization of ventricular montaño.
Total volume given: _3___ mL
Patient tolerated all procedures well without complications.
[2024-10-22 12:00] LABS: APTT 46.6 Sec (23.4-35.0)
[2024-10-22] MEDS: EFFIENT 60 MG PO (14:30)
[2024-10-22 15:51] LABS: ACT-LR - POC 266 Seconds (116-155)
[2024-10-22 16:46] LABS: ACT-LR - POC 374 Seconds (116-155)
[2024-10-22] MEDS: LIPITOR 80 MG PO (17:48)
--- NOTE | 2024-10-22 18:03 | W.PN.HOSP.TC ---
Addendum entered and electronically signed by Narendra Parker MD 10/22/24 20:30:
Attending Addendum-
I saw and evaluated the patient. I reviewed the resident�s note and agree with findings and plan as documented in the resident�s note. Sub: Patient denies further CP palpitations tremors NV abd pain diaphoresis or syncope. Full 12 point ROS reviewed
and negative except as documented Exam: Vitals reviewed in chart GEN-NAD heart RRR no M/R/G Lungs CTA B/L no W/R/R abd soft NT ND pos BS Ext. Right wrist bandaged +2 pulses right groin- bandaged no bruit auscultated
Plan:
# NSTEMI
-Troponin peaked @ 3.2 now trending down
-cont Aspirin, heparin drip- follow aptt
-cont n.p.o.
-diagnostic cath 10/21-2-vessel coronary artery disease as described with likely culprit lesion of the OM2 versus mid to distal LAD, iFR positive stenosis in the mid-distal LAD with minor contribution from the proximal LAD stenosis
-for multivessel stenting of the OM2, mid to distal LAD, +/- proximal LAD- 10/22
-cont lipitor, metoprolol XL, lisinopril
-echo 10/22- Normal biventricular size and systolic function without regional wall motion abnormality.
- LV ejection fraction is 55-60%
- Possible small PFO noted on color flow Doppler.
-monitor renal function closely
-Cardiology input appreciated
# AUD
-drinks 5-6 beers daily
-MSAS score between 1-2
-counselled re quitting
-cont folate thiamine MVI
# Essential hypertension
- cont Lisinopril
# DVT prophylaxis
- Heparin
# CODE STATUS
- Full code
Dispo DC home in am
ACP
Patient consented to discuss, was alone, time spent explanation of advance directives, changes in health status, patient�s health care wishes if the patient becomes unable to make health decisions, goals of care, code status, and prognosis 'only if
we have to do it, in an emergency'- 16 minutes
Time spent coordinating care, review of plan of care with resident, personally reviewed previous records in EMR, med rec, labs, radiology, d/w nursing, family total time documented is exclusive of any additional time listed that was spent in advance
care planning discussion -�51 minutes
Original Note:
Today's Communication/Plan
-
Coronary revascularization w/ stent placement performed today.
Monitor patient for complications s/p procedure.
Assessment / Plan
Assessment / Plan
#NSTEMI
#CAD
-EKG in ED: subtle ST depressions in leads II, V5, V6 with T wave inversions in aVR
-Echo 10/22: LVEF 55-60%; mild AR
-Troponins peaked at 3.22 10/21, downtrending
-Cardiac catheterization 10/21 revealed two-vessel CAD, with likely lesions in OM2 vs mid to distal LAD
-s/p revascularization w/ stenting 10/22
-Start Aspirin 81mg PO qd
-Start Atorvastatin 80mg qd
-Start Prasugrel Hydrochloride 60 mg
-Start Metoprolol 25mg PO qd
-Cardiology following
#Hypertension
-Lisinopril 10mg qd
#Hyperlipidemia
-Atorvastatin 80mg qd
-LDL goal <55
#Alcohol Use Disorder
-4-5 drinks per day, not in DTs or active withdrawal
-MSAS protocol, IV thiamine/folic acid, ativan PRN
DVT Ppx: SCDs
Code Status: Full code
Diet: Cholesterol lowering
Disposition: Home
Anticipated Discharge: Within 24 hours
Subjective/Interval History
-
Date of Service: October 22, 2024
Patient seen at the bedside shortly after PCI on hospital day #2. Tolerated the procedure well. No current complaints.
Objective Data
-
Labs:
Laboratory Results
07/01/25 07/01/25
11:34 18:45
APTT 46.6 H Pending
Vital Signs:
Vital Signs
Temp Pulse Resp BP Pulse Ox
98.6 F 92 16 118/68 96
10/22/24 17:14 10/22/24 12:20 10/22/24 12:20 10/22/24 09:21 10/22/24 12:20
Review of Systems
-
History Source: Patient
Constitutional: Denies Fever, Fatigue or Chills
Respiratory: Denies Trouble Breathing
Cardiac: Denies Chest Pain
Abdomen/GI: Denies Abdominal Pain
Physical Exam
-
HEENT: Normocephalic and Atraumatic
Respiratory: Clear to Auscultation and Non Labored Respirations
Cardiac: Regular Rhythm and Other (Pulses intact in all extremities); Negative Murmur, Rub or Gallop
GI: Soft and Nontender
Musculoskeletal: No Edema
Neuro: Awake, AO x 3 and Other (Motor and sensory in all extremities intact)
Psych: Calm
Data Reviewed
-
Medical Tests (Nuc Med, Echo etc): Report Reviewed by me
Labs: Labs Reviewed by me
--- NOTE | 2024-10-22 19:09 | W.PN.CD ---
Today's Communication / Plan
-
s/p PCI today
cont. asa/prasugrel
home tomorrow
needs to establish outpatient cv follow up
Impression / Plan
-
CP/NSTEMI:
- Symptoms initially started over the weekend. He had mild chest discomfort/tightness this morning. Currently denies CP
- troponin peak at 3
- asa load in ER given, IV heparin in ER
- echo with normal EF
- heart team discuss with optimal revas strategy determined to be PCI
- s/p successful MV PCI today (LCx, prox LAD, mid LAD)
- cont. asa/prasugrel for 1 year
- aggressive secondary prevention of CAD inc. goal LDL <55
- beta lonny
- cardiac rehab
HTN:
-lisinopril as OP
Hyperglycemia:
-glucose elevated but A1c 5.6
TTE
Normal biventricular size and systolic function without regional wall motion
abnormality.
LV ejection fraction is 55-60% by Lugo's method of discs. Normal diastolic
function.
Mild aortic regurgitation.
Possible small PFO noted on color flow Doppler.
No prior study available for comparison.
Physical Exam
Vital Signs/Labs
Vital Signs
Temp Pulse Resp BP Pulse Ox
37.0 C 86 16 134/89 96
10/22/24 17:14 10/22/24 18:15 10/22/24 12:20 10/22/24 18:00 10/22/24 12:20
10/21/24 10/22/24 10/23/24
06:59 06:59 06:59
Actual Weight 83.915 kg 84.9 kg
10/22/24 04:23
10/22/24 04:22
PT Cancelled 10/21/24 13:22
INR Cancelled 10/21/24 13:22
APTT 46.6 Sec (23.4-35.0) H 10/22/24 11:34
Magnesium 1.9 mg/dl (1.6-2.3) 10/21/24 17:22
Triglycerides 124 mg/dl (10-149) 10/22/24 04:22
LDL Cholesterol, Calc 103 mg/dl 10/22/24 04:22
VLDL Cholesterol, Calc 24 mg/dl (0-30) 10/22/24 04:22
HDL Cholesterol 42 mg/dl 10/22/24 04:22
10/21/24
11:00
Wzc-K-Vvuhxqghgpj Pept 3580
LAB Results
10/21/24 10/21/24 10/21/24
11:00 15:57 17:00
Troponin I 2.530 H* 2.550 H* Cancelled
10/21/24 10/21/24 10/22/24
17:22 23:08 04:23
Troponin I 3.220 H* D 3.170 H* 3.080 H*
Physical Exam
Constitutional: Comfortable
Cardiovascular: Rhythm & rate is regular
Respiratory: Respiratory effort normal
Neuro/Psych: AO x 3
Data Reviewed
-
Date of Service: October 22, 2024
--- NOTE | 2024-10-22 19:12 | ITS.CL.PN ---
Barrelhead Inspector - Procedure Note
Procedure
Procedure Note:
CARDIAC CATHETERIZATION REPORT
Date of Procedure: 10/22/2024
Referring: Dr. Kristopher Dimas MD
Indication: NSTEMI
PROCEDURE(S)
1. IVUS LAD
2. IVUS LCx
3. PCI with LUIS to mid LAD
4. PCI with LUIS to proximal LAD
5. PCI with LUIS to OM2
ACCESS: 7F common femoral artery (closure: 8 Egyptian Angio-Seal)
CATHETERS: 7F XB3.5 guide catheter
MODERATE SEDATION: 60 minutes of moderate sedation was utilized. An independent certified court/medical interpreter was present to assist with and help manage the patient's level of consciousness and physiologic status.
RADIATION: dose 836 mGy; DAP 46.9 Gy*cm2; fluoroscopy time 25.1 min
CORONARY INTERVENTION
The left main was intubated with a 7 Egyptian XB 3.5 guide catheter. Heparin was given to achieve ACT greater than 300. A Runthrough wire was placed in the distal LAD. Initial lesion preparation was performed with a 2.0 mm semicompliant balloon in the
mid LAD. Additional lesion preparation was performed with a 2.5 mm NC balloon delivered with the aid of a 6 Egyptian GuideLiner. The IVUS catheter was not able to pass distally in the lesion but did allow measurement of a 2.5 mm reference vessel
diameter. With GuideLiner support stenting was performed with a 2.5 x 26 mm [place] Emm[place] drug-eluting stent postdilated to high-pressure with a 2.5 mm NC balloon with full expansion noted. We then moved onto the proximal LAD. IVUS had demonstrated
a 3.25 mm reference vessel diameter with focal heavy calcification. Initial lesion preparation was performed with a 2.5 mm NC balloon followed by stenting with a 3.0 x 18 mm [place] Emmons drug-eluting stent postdilated to high-pressure with a 3.25
mm NC balloon. There was a area of stent underexpansion at a region of focal calcium in the mid stent which was noted to resolve with 20 rene inflation with the 3.25 mm NC balloon. Final angiographic result was excellent with full stent expansion and
apposition and no edge dissections. We then moved our attention to the circumflex. The Runthrough wire was withdrawn and rewired into the distal OM2. Initial lesion preparation was performed with the 2.0 mm balloon. IVUS was performed demonstrating
a 2.5 mm distal reference vessel diameter 2.75 mm proximal reference vessel diameter. A 2.25 x 26 mm [place] drug-eluting stent was delivered and deployed followed by post dilation distally with a 2.5 mm NC balloon and proximally with a 2.75
mm NC balloon. Final angiographic result was excellent with full stent expansion and apposition no edge dissections. The wires and guide were removed and a TR band placed.
CONCLUSIONS
1. Successful IVUS guided PCI of the mid LAD with a 2.5 x 26 mm [place] Emm[place] drug-eluting stent postdilated to high pressure with a 2.5 mm NC balloon.
2. Successful IVUS guided PCI of the proximal LAD with a 3.0 x 18 mm [place] Emm[place] drug-eluting stent postdilated to high-pressure with a 3.25 mm NC balloon.
3. Successful IVUS guided PCI of the OM2 with a 2.25 x 26 mm N[place] Emmons drug-eluting stent postdilated to high-pressure distally with a 2.5 mm NC balloon and proximally to high-pressure with a 2.75 mm NC balloon.
RECOMMENDATIONS
1. DAPT with aspirin and prasugrel for 1 year
2. Aggressive secondary prevention of coronary artery disease including high intensity statin for goal LDL less than 55 (additional agents if needed to achieve goal)
3. Continue beta-lonny
4. Cardiac rehab
5. Establish with outpatient cardiology
Copy to: Dr. Joe Wilson MD (PCP)
Signed: Jemal Grijalva MD, PhD
--- NOTE | 2024-10-22 19:42 | PTCARENOTE ---
~[id number]: Handoff report received from nightshift RN. Pt AOx4, NSR 80s-100s on tele, SBP 110s, RA satting >90%. Pt denies pain at this time. CAD education provided. Questions answered about procedure today. Pt NPO for lunch to go to CCL. R radial
site CDI, R femoral site CDI. Pt independent in room. All needs met at this time, call tran within reach.
~0844-5851: ECHO completed. Pt NPO for PCI. PTT drawn and sent to lab. Pt Sister called, update given, all questions answered. All needs met at this time, call tran within reach.
~9682-1319: PTT resulted, Heparin gtt titrated per protocol. Patient in room VSS at this time. STAT effient given per order. Around 1435, report given to CCL, patient informed.
~1700: CCL called with report and pt transported back to room via bed. L fem aproach, site soft and dressing CDI. Pt does not c/o pain at this time.
~7654-7909: Sister at bedside. HOB at 30 degrees per order. L groin site still soft and CDI. Bedrest until 1999.
~7187-2308: handoff report given to nightshift RN. When checking groins with nightshift RN, b/l groin dressing with moderate bleedng noted. Pressure held and new dressings applied. All needs met at this time, call tran within reach.
--- NOTE | 2024-10-22 22:32 | PTCARENOTE ---
Assumed care of the pt @ 1900. Pt is AAOx3 SR/ST on the monitor VSS. At beginning of the shift b/l groin cath sites bleeding. Pressure was held and new dressing applied. No further signs of bleeding. Call tran within reach.
[2024-10-23] MEDS: ROBITUSSIN 100 MG PO (03:45)
[2024-10-23 03:49] VITALS: BP 133/76
[2024-10-23 04:24] LABS: Hematocrit 32.9 % (39.0-52.0); Hemoglobin 11.6 g/dL (13.0-18.0); Mean Corp Hgb Conc. 35.3 g/dL (33.0-37.0); Mean Corpuscular Volume 92.4 fL (80.0-94.0); Platelet Count 206 10^3/uL (130-400); Red Cell Dist. Width 11.8 % (11.5-14.5)
[2024-10-23 04:42] LABS: Blood Urea Nitrogen 17 mg/dl (9-20); Calcium 8.4 mg/dl (8.4-10.2); Carbon Dioxide 18 mmol/L (22-30); Chloride 107 mmol/L (98-107); Estimated Creatinine Clearance 101 ml/min; Glucose 103 mg/dl (70-99); Potassium 4.1 mmol/L (3.5-5.1); Sodium 133 mmol/L (135-145); eGFR > 60.00
[2024-10-23 07:59] VITALS: BP 125/77
[2024-10-23 08:02] VITALS: BMI 26.2
[2024-10-23 08:07] LABS: ACT-LR - POC > 397 Seconds (116-155)
[2024-10-23] MEDS: LOW STRENGTH ASPIRIN 81 MG PO (09:46)
[2024-10-23] MEDS: FOLVITE 1 MG PO (09:46)
[2024-10-23] MEDS: TOPROL XL 25 MG PO (09:46)
[2024-10-23] MEDS: THIAMINE INJECTION 200 MG IV (09:47)
[2024-10-23] MEDS: FLUSH (NSS) 1 FLUSH IV (09:47)
[2024-10-23] MEDS: ZESTRIL 10 MG PO (09:47)
[2024-10-23] MEDS: EFFIENT 10 MG PO (09:48)
--- NOTE | 2024-10-23 10:37 | PTCARENOTE ---
Patient oob this morning sitting in the chair, seen by Dr. Grijalva and the patient states he can go home at noon. Wanted me to take off is telemetry and remove his IV. Instructed that once discharge order is in, we will remove them. Patient
complaining that he hasn't been able to sleep here and was up all night with a cough, although states now it seems to have improved. Scattered wheezing noted A/P when I auscultated his lungs. the medical transcriptionist is in now seeing the patient and was
updated.
[2024-10-23 11:23] VITALS: BP 118/75
--- NOTE | 2024-10-23 11:58 | W.PN.CD ---
Today's Communication / Plan
-
home today
op follow up with cardiology scheduled 11/11/24 9:40 with Brianda Benedict
Impression / Plan
-
CP/NSTEMI:
- troponin peak at 3
- asa load in ER given, IV heparin in ER
- echo with normal EF
- heart team discussion with optimal revasc strategy determined to be PCI
- s/p successful MV PCI 10/22 (LCx, prox LAD, mid LAD)
- cont. asa/prasugrel for 1 year
- aggressive secondary prevention of CAD inc. goal LDL <55, started high intensity statin on this admit
- beta lonny
- cardiac rehab
HTN:
-lisinopril as OP
Hyperglycemia:
-glucose elevated but A1c 5.6
TTE
Normal biventricular size and systolic function without regional wall motion
abnormality.
LV ejection fraction is 55-60% by Lugo's method of discs. Normal diastolic
function.
Mild aortic regurgitation.
Possible small PFO noted on color flow Doppler.
No prior study available for comparison.
Subjective:
feeling well without angina
Physical Exam
Vital Signs/Labs
Vital Signs
Temp Pulse Resp BP Pulse Ox
37.3 C 100 18 118/75 95
10/23/24 11:21 10/23/24 11:45 10/23/24 11:21 10/23/24 11:23 10/23/24 11:21
10/22/24 10/23/24 10/24/24
06:59 06:59 06:59
Actual Weight 83.915 kg 84.9 kg 85.2 kg
10/23/24 03:57
10/23/24 03:57
PT Cancelled 10/21/24 13:22
INR Cancelled 10/21/24 13:22
APTT Cancelled 10/22/24 22:41
Magnesium 1.9 mg/dl (1.6-2.3) 10/21/24 17:22
Triglycerides 124 mg/dl (10-149) 10/22/24 04:22
LDL Cholesterol, Calc 103 mg/dl 10/22/24 04:22
VLDL Cholesterol, Calc 24 mg/dl (0-30) 10/22/24 04:22
HDL Cholesterol 42 mg/dl 10/22/24 04:22
10/21/24
11:00
[id number] Pept 3580
LAB Results
10/21/24 10/21/24 10/21/24
11:00 15:57 17:00
Troponin I 2.530 H* 2.550 H* Cancelled
10/21/24 10/21/24 10/22/24
17:22 23:08 04:23
Troponin I 3.220 H* D 3.170 H* 3.080 H*
Physical Exam
Constitutional: Comfortable
Cardiovascular: Rhythm & rate is regular
Respiratory: Respiratory effort normal
Neuro/Psych: AO x 3
Data Reviewed
-
Date of Service: October 23, 2024
Medical Decision Making: Reviewed Test Results
Labs: Labs Reviewed by me
--- NOTE | 2024-10-23 13:33 | CM ---
Chart reviewed. Patient is independent of ADLS, lives alone in a 1st floor apartment, 1 DORY, 0 DME. Plan is for the patient to return home. CM to follow
--- NOTE | 2024-10-23 13:34 | PN.CDI ---
CDI
- -
CDI:
Physician Documentation Request
Admit Date: 10/21/24 12:56
Dear Doctor Ruchi,
Please review the following and provide your response in the progress notes.
Clinical Indicators:
Laboratory Tests
10/21/24 10/22/24 10/23/24
11:00 04:23 03:57
Hgb 14.3 12.3 L 11.6 L
Hct 41.9 35.5 L 32.9 L
Based on the above and your clinical assessment, what is the the most likely condition/diagnosis evaluated, monitored and/or treated?
Acute blood loss anemia
Abnormal lab value, clinically insignificant
Other(please specify)
Use of terms such as suspected, likely, concern for, or probable (associated with a specific diagnosis that is being evaluated, monitored, or treated as if it exists) are acceptable and can be coded in the inpatient setting, when documented at the
time of discharge.
Thank you,
Connie Dorantes RN BSN CCDS
CDI Specialist
Please contact via tiger text
Please use your independent medical judgment in providing your response.
--- NOTE | 2024-10-23 14:52 | W.PN.HOSP.TC ---
Addendum entered and electronically signed by Narendra Parker MD 10/24/24 21:22:
Anemia- abnormal lab without clinical significance at this time- repeat as OP
Addendum entered and electronically signed by Narendra Parker MD 10/23/24 20:16:
Attending Addendum-
I saw and evaluated the patient. I reviewed the resident�s note and agree with findings and plan as documented in the resident�s note. Sub: Comaplisn of cough x hours overnight. Currently much improved. Denies CP palps. No fevers chills. Full 10
point ROS reviewed and negative except as documented Exam: Vitals reviewed in chart GEN-NAD heart RRR no M/R/G Lungs scattered expiratory wheeze mild cleared with coughing. ABD soft NT ND pos BS Ext. Right wrist bandaged +2 pulses right and left
groin- bandaged no bruit auscultated
Plan:
# Cough and wheeze
- likely reactive
- d/w cards unlikely due to bb or lisinopril
- supportive care- close follow up with primary as OP
# NSTEMI
-Troponin peaked @ 3.2
-cont lipitor, metoprolol XL, lisinopril,
-DAPT-prasugrel and Asa x 12 months
-echo 10/22- Normal biventricular size and systolic function without regional wall motion abnormality.
- LV ejection fraction is 55-60%
- Possible small PFO noted on color flow Doppler.
-10/22- PCI x 3- prox LAD, Mid LAD and OM.
-Cardiology input appreciated ok for DC home f/u as OP on 11/11 appt set
# AUD
-drinks 5-6 beers daily
-MSAS score 1
-counselled re quitting
-cont folate thiamine MVI
# Essential hypertension
- cont Lisinopril
# DVT prophylaxis
- Heparin
# CODE STATUS
- Full code
Dispo DC home with close follow up.
Time spent coordinating care, DC planning, review of DC plan of care with resident, transition of care, review of records, med rec/scripts sent electronically, consults, notes, d/w consultants, nursing, family, PCP, and CM� 32 mins >50% of this time
was devoted to counseling and coordination of care
Original Note:
Today's Communication/Plan
-
Patient tolerated PCI well.
Mild cough w/ wheezing developed overnight. Antitussive given for symptomatic relief.
Plan to discharge to home today.
Assessment / Plan
Assessment / Plan
#NSTEMI
#CAD
-EKG in ED: subtle ST depressions in leads II, V5, V6 with T wave inversions in aVR
-Echo 10/22: LVEF 55-60%; mild AR
-Troponins peaked at 3.22 10/21, downtrending
-Cardiac catheterization 10/21 revealed two-vessel CAD, with likely lesions in OM2 vs mid to distal LAD
-s/p successful revascularization w/ stenting 10/22
-Continue Aspirin 81mg PO qd
-Continue Atorvastatin 80mg qd
-Continue Prasugrel Hydrochloride 60 mg
-Continue Metoprolol 25mg PO qd
-Cardiac rehab recommended, per cardiology
-Cardiology following
#Acute anemia
Hgb 11.6 - prior values 12.3, 14.6
Suspected dilutional vs ABLA s/p PCI
No signs of active bleeding, PCI access site CDI, VSS
#Cough w/ mild wheezing
New onset last night
Start Benzonatate 100mg PO TID
#Hypertension
-Lisinopril 10mg qd
#Hyperlipidemia
-Atorvastatin 80mg qd
-LDL goal <55
#Alcohol Use Disorder
-4-5 drinks per day, not in DTs or active withdrawal
-MSAS protocol, IV thiamine/folic acid, ativan PRN
DVT Ppx: SCDs
Code Status: Full code
Diet: Cholesterol lowering
Disposition: Home
Anticipated Discharge: Today
Subjective/Interval History
-
Date of Service: October 23, 2024
Patient seen at the bedside on hospital day #3, POD #1. Nursing and patient report new cough with wheezing overnight. No acute distress. Amenable to discharge later today.
Objective Data
-
Labs:
Laboratory Results
10/23/24
03:57
WBC 8.3
Hgb 11.6 L
Hct 32.9 L
Plt Count 206
Sodium 133 L
Potassium 4.1
Chloride 107
Carbon Dioxide 18 L
BUN 17
Creatinine 0.8
Glucose 103 H
Calcium 8.4
Vital Signs:
Vital Signs
Temp Pulse Resp BP Pulse Ox
99.1 F 100 18 118/75 95
10/23/24 11:21 10/23/24 11:45 10/23/24 11:21 10/23/24 11:23 10/23/24 11:21
I&O
10/22/24 10/23/24 10/24/24
06:59 06:59 06:59
Output Total 250 / 250
Balance -250 / -250
Review of Systems
-
History Source: Patient
Constitutional: Denies Fever, Fatigue or Chills
Respiratory: Reports Cough and Wheezing; Denies Trouble Breathing
Cardiac: Denies Chest Pain
Abdomen/GI: Denies Abdominal Pain
Physical Exam
-
General: No Apparent Distress
HEENT: Normocephalic and Atraumatic
Respiratory: Wheezes and Non Labored Respirations; Negative Crackles
Cardiac: Regular Rhythm and Other (Sites of groin access for PCI clean, dry, intact; pulses intact in all extremities); Negative Murmur, Rub or Gallop
GI: Soft and Nontender
Neuro: Awake, AO x 3 and Other (Sensory and motor intact in all extremities)
Psych: Calm
Data Reviewed
-
Labs: Labs Reviewed by me
[2024-10-23 15:18] VITALS: BP 121/79
[2024-10-23] MEDS: TESSALON PERLES 100 MG PO (15:34)
--- NOTE | 2024-10-23 16:25 | PTCARENOTE ---
Patient cleared for discharge home, [id number] here to drive him home. All prescriptions sent to [facility] but patient has a good rx coupon for effient to use at [facility] in [place]. TT sent to the hospitalist to resend effient to [facility],
which he will do shortly. Patient states his understanding of his instructions, new medications and follow up appointments. Patient discharged home.
[2024-10-24 08:11] LABS: Lipoprotein a (Lp a) 69 mg/dL (<=29)
--- NOTE | 2024-10-24 19:01 | W.DCSUMMARY ---
Addendum entered and electronically signed by Narendra Parker MD 10/24/24 21:24:
Read, reviewed, and agree. See same day progress note for additional details. D/W PCP re close follow up.
Zak Parker MD
Original Note:
Documented by User: Wes Hopper MD, Resident 10/24/24 19:51
Discharge Summary
Discharge Data
Date of Admission: 10/21/24
Date of Discharge: 10/23/24
-
Pending Results: No
Hospital Course
Discharging Physician : Wes Hopper MD; Narendra Parker MD
Disposition : Home
Primary care physician : Jeo Wilson MD
Principal Discharge diagnosis : NSTEMI
Chronic Discharge diagnosis : Essential hypertension; alcohol use disorder
Hospital Course : Patient presented to the emergency department at [facility] with complaint of chest pain. He was subsequently diagnosed with an NSTEMI based on clinical symptoms, EKG, and cardiac biomarkers. Patient underwent a cardiac
catheterization, which showed two-vessel coronary artery disease of the OM2 and LAD. During his hospital stay, the patient was administered metoprolol, prasugrel hydrochloride, aspirin, and atorvastatin. Patient underwent successful PCI with
drug-eluting stent placement in the mid LAD, proximal LAD, and OM2. Patient tolerated the procedure well. Patient developed a cough with mild wheezing the night following the procedure, and he was given benzonatate for symptomatic relief. Patient
also developed mild tachycardia the night following his procedure, which was deemed to be related to the patient's underlying anxiety/panic disorder. Upon discharge, patient will continue new medical therapy with metoprolol succinate 25 mg p.o.
daily, dual antiplatelet therapy with aspirin 81 mg p.o. daily and prasugrel 10 mg p.o. daily for 1 year, and atorvastatin 80 mg p.o. qpm. Patient will continue treatment for hypertension with lisinopril 10 mg p.o. daily.
Additionally, patient was counseled on AUD. Recommend discussion with PCP regarding alcohol cessation therapy.
Important imaging findings :
Echocardiogram�10/22:
1. Normal biventricular size and systolic function without regional wall motion abnormality.
2. LV ejection fraction is 55-60% by Lugo's method of discs. Normal diastolic function.
3. Mild aortic regurgitation.
4. Possible small PFO noted on color flow Doppler.
Procedure findings :
Cardiac catheterization�10/21:
1. Two-vessel coronary artery disease as described with likely culprit lesion of the OM2 versus mid to distal LAD
2. iFR positive stenosis in the mid-distal LAD with minor contribution from the proximal LAD stenosis
3. Mildly elevated LV filling pressure no aortic stenosis
Cardiac catheterization�10/22:
1. Successful IVUS guided PCI of the mid LAD with a 2.5 x 26 mm [place] drug-eluting stent postdilated to high pressure with a 2.5 mm NC balloon.
2. Successful IVUS guided PCI of the proximal LAD with a 3.0 x 18 mm [place] drug-eluting stent postdilated to high-pressure with a 3.25 mm NC balloon.
3. Successful IVUS guided PCI of the OM2 with a 2.25 x 26 mm [place] drug-eluting stent postdilated to high-pressure distally with a 2.5 mm NC balloon and proximally to high-pressure with a 2.75 mm NC balloon.
Discharge Plan
-
Patient Disposition: Home (Routine Discharge)
Discharge Diagnosis/Procedures: NSTEMI, s/p Angioplasty with stent to LAD and LCx
Condition: Fair
Diet: Low Cholesterol
Activity: As tolerated
Driving Restrictions: No driving for 24 hours
Bathing Restrictions: None
Other Services: Cardiac Rehab
Activity Restrictions/Additional Instructions:
Please call to make appointments for Phase II Cardiac Rehab: ( able)
[facility]: [phone]
Stand Alone Forms: DC Instructions- Cath/EP Lab
Referrals:
Joe Wilson MD, Resident [Family Provider, General]
Katelynn Benedict NP [Specified Professional Personl, Cardiology] - 11/11/24 9:40 am
Referral Note: Cardiology followup appointment
Prescriptions:
New
atorvastatin 80 mg Tablet
80 mg PO QPM 90 Days Qty: 90 3RF
prasugrel HCl 10 mg Tablet
10 mg PO DAILY 90 Days Qty: 90 3RF
benzonatate 100 mg Capsule
100 mg PO TIDPRN PRN (Reason: Cough) 7 Days Qty: 21 0RF
metoprolol succinate 25 mg Tablet Extended Release 24 Hr
25 mg PO DAILY 90 Days Qty: 90 3RF
Continued
psyllium Packet
1 packet PO DAILY
therapeutic multivitamin Tablet
1 tab PO DAILY
lisinopril 10 mg Tablet
10 mg PO DAILY
turmeric 400 mg Capsule
400 mg PO DAILY
Glucosamine Chondroitin 550-30-1 mg Capsule
1 cap PO DAILY
aspirin 81 mg Tablet,Delayed Release (Dr/Ec)
81 mg PO DAILY 90 Days Qty: 90 3RF
Discharge Orders:
Discharge Patient (As Directed); Ordered 10/23/24
Ordered By: Wes Hopper
Care Plan Goals
Care Plan Goals:
Problem: Readiness for enhanced knowledge related to diagnosis and treatment plan
Goal: Understand your diagnosis and treatment plan needs, including medications if applicable.
Instructions: Know your diagnosis, underlying causes and treatment plan options, including medications if applicable. Consult with your health care team to learn about your diagnosis and treatment plan, including medications if applicable.
Discharge Date and Time
Discharge Date/Time: 10/23/24 17:00
Print Language: NEPALI

Documented by User: Narendra Parker MD 10/24/24 21:22
Discharge Summary
Discharge Data
Date of Admission: 10/21/24
Date of Discharge: 10/24/24
Discharge Plan
-
Patient Disposition: Home (Routine Discharge)
Discharge Diagnosis/Procedures: NSTEMI, s/p Angioplasty with stent to LAD and LCx
Condition: Fair
Diet: Low Cholesterol
Activity: As tolerated
Driving Restrictions: No driving for 24 hours
Bathing Restrictions: None
Other Services: Cardiac Rehab
Activity Restrictions/Additional Instructions:
Please call to make appointments for Phase II Cardiac Rehab: ( able)
[facility]: [phone]
Stand Alone Forms: DC Instructions- Cath/EP Lab
Referrals:
Joe Wilson MD, Resident [Family Provider, General]
Katelynn Benedict NP [Specified Professional Personl, Cardiology] - 11/11/24 9:40 am
Referral Note: Cardiology followup appointment
Prescriptions:
New
atorvastatin 80 mg Tablet
80 mg PO QPM 90 Days Qty: 90 3RF
prasugrel HCl 10 mg Tablet
10 mg PO DAILY 90 Days Qty: 90 3RF
benzonatate 100 mg Capsule
100 mg PO TIDPRN PRN (Reason: Cough) 7 Days Qty: 21 0RF
metoprolol succinate 25 mg Tablet Extended Release 24 Hr
25 mg PO DAILY 90 Days Qty: 90 3RF
Continued
psyllium Packet
1 packet PO DAILY
therapeutic multivitamin Tablet
1 tab PO DAILY
lisinopril 10 mg Tablet
10 mg PO DAILY
turmeric 400 mg Capsule
400 mg PO DAILY
Glucosamine Chondroitin 550-30-1 mg Capsule
1 cap PO DAILY
aspirin 81 mg Tablet,Delayed Release (Dr/Ec)
81 mg PO DAILY 90 Days Qty: 90 3RF
Discharge Orders:
Discharge Patient (As Directed); Ordered 10/23/24
Ordered By: Wes Hopper
Care Plan Goals
Care Plan Goals:
Problem: Readiness for enhanced knowledge related to diagnosis and treatment plan
Goal: Understand your diagnosis and treatment plan needs, including medications if applicable.
Instructions: Know your diagnosis, underlying causes and treatment plan options, including medications if applicable. Consult with your health care team to learn about your diagnosis and treatment plan, including medications if applicable.
Discharge Date and Time
Discharge Date/Time: 10/23/24 17:00
Print Language: NEPALI
== END 2024-10-23 17:00 | disposition home or self-care (01) | DRG 322 ==
LOC: IVU 12:56
PROVIDERS: Nurse Practitioner; Nurse Practitioner Adult Health; Registered Nurse; Student in an Organized Health Care Education/Training Program; ADMITTING PHYSICIAN Hospitalist; ATTENDING PHYSICIAN Family Medicine; CONSULT PHYSICIAN Internal Medicine; CONSULT PHYSICIAN Thoracic Surgery (Cardiothoracic Vascular Surgery); EMERGENCY PHYSICIAN Emergency Medicine; FAMILY PHYSICIAN Student in an Organized Health Care Education/Training Program
PROC: 4A033BC Measurement of Arterial Pressure, Coronary, Percutaneous Approach (ICD-10-PCS; 2024-10-21)
PROC: B2111ZZ Fluoroscopy of Multiple Coronary Arteries using Low Osmolar Contrast (ICD-10-PCS; 2024-10-21)
PROC: 4A023N7 Measurement of Cardiac Sampling and Pressure, Left Heart, Percutaneous Approach (ICD-10-PCS; 2024-10-21)
PROC: B241ZZ3 Ultrasonography of Multiple Coronary Arteries, Intravascular (ICD-10-PCS; 2024-10-22)
PROC: 027136Z Dilation of Coronary Artery, Two Arteries with Three Drug-eluting Intraluminal Devices, Percutaneous Approach (ICD-10-PCS; 2024-10-22)
DX: I21.4 Non-ST elevation (NSTEMI) myocardial infarction (principal); Q21.12 Patent foramen ovale; D62 Acute posthemorrhagic anemia; M54.50 Low back pain, unspecified; E78.00 Pure hypercholesterolemia, unspecified; I10 Essential (primary) hypertension; F41.0 Panic disorder [episodic paroxysmal anxiety]; F10.20 Alcohol dependence, uncomplicated; L40.0 Psoriasis vulgaris; R73.9 Hyperglycemia, unspecified; I25.10 Atherosclerotic heart disease of native coronary artery without angina pectoris; Z60.2 Problems related to living alone; Z79.82 Long term (current) use of aspirin; Z82.49 Family history of ischemic heart disease and other diseases of the circulatory system
CPT/HCPCS: 80048; 80053; 80061; 80306; 81003; 81015; 82010; 82077; 82977; 83036; 83695; 83735; 83880; 84100; 84484; 85025; 85027; 85347; 85730; 92978; 92979; 93005; 93306; 93458; 93799; 99152; 99153; 99285; C1725; C1753; C1769; C1874; C1887; C1894; C9600; Q9950; Q9967

== ENCOUNTER 2024-12-03 06:09 | Emergency (ER) | payer OTHER, SELFPAY ==
[2024-12-03 06:14] VITALS: BP 228/118
[2024-12-03 06:37] LABS: Hematocrit 36.7 % (39.0-52.0); Hemoglobin 12.4 g/dL (13.0-18.0); Mean Corp Hgb Conc. 33.8 g/dL (33.0-37.0); Mean Corpuscular Volume 93.4 fL (80.0-94.0); Platelet Count 216 10^3/uL (130-400); Red Cell Dist. Width 12.5 % (11.5-14.5)
[2024-12-03 06:43] LABS: INR 0.97; PT 13.2 Sec (11.4-14.6)
== END 2024-12-03 06:51 ==
LOC: EMR 06:09
PROVIDERS: Student in an Organized Health Care Education/Training Program; FAMILY PHYSICIAN Student in an Organized Health Care Education/Training Program
DX: Z53.21 Procedure and treatment not carried out due to patient leaving prior to being seen by health care provider (principal)
CPT/HCPCS: 85027; 85610

== ENCOUNTER 2025-02-10 12:54 | Inpatient (IN) | payer OTHER, SELFPAY ==
[2025-02-10] VITALS (36 sets, daily range): BP systolic 64–125; BP diastolic 34–79; BMI 25.7; BMI 25.5
--- NOTE | 2025-02-10 09:57 | ED.GENMED ---
History of Present Illness
General
Chief Complaint: Fainting Sensation
Source: patient
Exam Limitations: none
Time Seen by Provider: 02/10/25 09:52
History of Present Illness
History of Present Illness:
See MDM
Past History
Past History
ED Past Medical History: CAD, HTN and Hypercholesterolemia
ED Past Surgical History: Cardiac and Orthopedic
Social History
Tobacco: Non-smoker
Alcohol: None
Phy Exam
Physical Exam
Physical Exam:
See MDM
Course
Orders/Labs/Results
Orders:
Orders
02/10/25 09:42
ECG [Electrocardiogram (*1)] Urgent
Reason for Study: Vertigo / Dizzy
EKG- Treatment ONCE
02/10/25 09:58
0.9% Sodium Chloride 1000 ml [Nss] 1,000 ml IV BOLUS
02/10/25 10:15
Complete Blood Count/With Diff Urgent
Comprehensive Metabolic Panel Urgent
PTT Urgent
Prothrombin Time Urgent
Troponin I Urgent
02/10/25 10:34
IV Insert/Care/Rem.- Treatment PRN
Pantoprazole 80 mg/100 ml Nss [Protonix] 80 mg in 100 ml IV NOW
Pantoprazole [Protonix IV] 80 mg IV NOW STA
02/10/25 12:19
Consult Gastroenterology [GASTROINTESTINAL CONSULT] Routine
Consulting Provider: Katelynn Kidd
Was physician already notified: Yes
Abnormal Lab Results
02/10/25
10:15
RBC 2.97 L 10^6/uL
(4.70-6.10)
Hgb 9.4 L g/dL
(13.0-18.0)
Hct 28.7 L %
(39.0-52.0)
MCV 96.6 H fL
(80.0-94.0)
MCH 31.6 H pg
(27.0-31.0)
MCHC 32.8 L g/dL
(33.0-37.0)
Abs Immat Gran (auto) 0.1 H 10^3/uL
(0-0.05)
Absolute Neuts (auto) 7.5 H 10^3/uL
(1.4-6.5)
Absolute Lymphs (auto) 1.0 L 10^3/uL
(1.2-3.4)
Absolute Monos (auto) 0.8 H 10^3/uL
(0.1-0.6)
Immature Gran % 0.7 H %
(0-0.5)
Neutrophils % 79.5 H %
(42.2-75.2)
Lymphocytes % 11.0 L %
(20.5-51.1)
Sodium 131 L mmol/L
(135-145)
Carbon Dioxide 21 L mmol/L
(22-30)
BUN 41 H mg/dl
(9-20)
Glucose 113 H mg/dl
(70-99)
02/10/25 10:15
02/10/25 10:15
Vital Signs
Initial and Last Documented VS:
Initial Vital Signs
Temp Pulse Resp BP Pulse Ox
98.3 F 107 18 125/79 100
02/10/25 09:38 02/10/25 09:38 02/10/25 09:38 02/10/25 09:38 02/10/25 09:38
Last Documented Vital Signs
Temp Pulse Resp BP Pulse Ox
98.3 F 100 17 111/65 100
02/10/25 09:38 02/10/25 12:00 02/10/25 12:00 02/10/25 11:00 02/10/25 09:58
MDM/Problems Addressed
Differential Diagnosis Includes:
Note:
CHIEF COMPLAINT(S)
Dizziness and blood in stool.
HISTORY OF PRESENT ILLNESS
The patient is a 64-year-old male presenting with dizziness and bloody stools. The dizziness appears to have prompted family members to encourage rest, increased hydration, and contact with his doctor, who subsequently advised he seek emergency
care. Over the past day, the patient has observed blood in the stool that was described as dark brown and oily yesterday, and currently appears dark and bloody. There is a concern for possible gastrointestinal bleeding, compounded by the patient�s
known use of antiplatelet medications. The patient was unable to recall if there was an associated onset of diarrhea. Additionally, there was a history of blood in the stool previously.
Patient did have some stool in the toilet. It is dark in color and I can visibly see some specks of blood as well
PHYSICAL EXAM
General: Alert, no acute distress.
Skin: Warm, dry.
Head: Normocephalic, atraumatic
Neck: Appears supple, trachea midline.
Eyes, Ears, Nose, Mouth, and Throat: Moist mucous membranes
Cardiovascular: No signs of cyanosis. Regular rate and rhythm
Respiratory: Respirations are non-labored. Lungs clear
Abdomen: Non-distended and nontender
Musculoskeletal: No deformities
Neurological: No focal neurological deficit observed.
Psychiatric: Cooperative, appropriate mood and affect.
PLAN
Blood work will be ordered to assess the underlying cause of symptoms.
DIFFERENTIAL DIAGNOSIS
The Differential Diagnosis includes, in no particular order and is not limited to:
- Upper gastrointestinal bleed
- Lower gastrointestinal bleed
- Hemorrhoids
- Diverticulosis
- Peptic ulcer disease
- Colorectal cancer
- Inflammatory bowel disease
- Ischemic colitis
- Gastroenteritis
- Antiplatelet medication effect
DISPOSITION
To be determined based on further testing and consultation.
MEDICAL DECISION MAKING
1. Number and Complexity of Problems Addressed:
- Chronic conditions affecting care: Use of antiplatelet medication.
- Differential diagnosis list as stated.
2. Data: Amount and/or Complexity of Data Reviewed and Analyzed
Category 1: Tests and documents
- Blood tests will be ordered to assess the risk of gastrointestinal bleeding.
3. Risk:
- Potential for a gastrointestinal bleed due to the use of antiplatelet medication.
- Decision regarding possible admission due to the complexity and risk of the presenting symptoms.
EKG
My independent EKG interpretation is:
- Sinus rhythm
- Heart rate: 93 beats per minute
- Normal axis
- No ST segment changes observed
- No ST-elevation noted
SUMMARY OF ENCOUNTER
The patient, a 64-year-old male, presented with weakness and fatigue. These symptoms are suspected to result from his antiplatelet therapy potentially causing an upper gastrointestinal bleed. The patient experienced a hemoglobin drop of 3 grams.
Vitals remain stable. It was decided to admit the patient to the hospitalist service for further management. The patient was started on a proton pump inhibitor (PPI) drip.
DISPOSITION
Admit
MANAGEMENT OF THE PATIENTS CARE WAS DISCUSSED WITH
Gastroenterology team, who will evaluate the patient.
PLAN
Admit to the hospital for further evaluation and management of suspected upper gastrointestinal bleeding. Initiated treatment with a PPI drip.
MEDICAL DECISION MAKING
-Complexity of Data Reviewed: Chronic conditions affecting care: Use of antiplatelet medication with potential for gastrointestinal bleeding. Differential Diagnosis includes: upper gastrointestinal bleed, lower gastrointestinal bleed, hemorrhoids,
diverticulosis, peptic ulcer disease, colorectal cancer, inflammatory bowel disease, ischemic colitis, gastroenteritis, antiplatelet medication effect.
-Data:
Category 1: Lab tests will be conducted to monitor hemoglobin levels and assess the extent of gastrointestinal bleeding.
Category 3: Discussed case management with gastroenterology for evaluation and treatment planning.
DIAGNOSIS
Suspected upper gastrointestinal bleed (ICD-10: K92.2), Weakness and fatigue due to hemorrhage (ICD-10: R53.1).
*Pulse Oximetry
SaO2: 100
Oxygen Mode of Delivery: Room air
Patient hypoxic: no
*Critical Care Note
Total Time (30-74mins, 75-104mins- exclusive of procedures): 33 min
comment:
The high probability of a clinically significant, sudden or life threatening deterioration of the gastrointestinal system(s) required my full and direct attention, intervention and personal management. The aggregate critical care time was 33
minutes. This time is in addition to time spent performing reported procedures but includes the following:
[x] Data Review and interpretation
[x] Patient assessment and monitoring of vital signs
[x] Documentation
[x] Medication orders and management
ED Attending Note
-
Portions of this chart may have been created with voice recognition software.� Occasional wrong word or��sound alike� substitutions may have occurred due to the inherent limitations of voice recognition software.
Discharge Plan
Departure
Patient Disposition: Admit
Date of Disposition: 02/10/25
Time of Disposition: 12:20
Admit to: Med/Surg
Presentation/result/management discussed w/ accepting MD/DO: Hospitalist
Discharge Problem:
GI bleed
Prescriptions:
No Action
psyllium Packet
1 packet PO DAILY
therapeutic multivitamin Tablet
1 tab PO DAILY
lisinopril 10 mg Tablet
10 mg PO DAILY
turmeric 400 mg Capsule
400 mg PO DAILY
Glucosamine Chondroitin 550-30-1 mg Capsule
1 cap PO DAILY
atorvastatin 80 mg Tablet
80 mg PO QPM 90 Days Qty: 90 3RF
prasugrel HCl 10 mg Tablet
10 mg PO DAILY 90 Days Qty: 90 3RF
benzonatate 100 mg Capsule
100 mg PO TIDPRN PRN (Reason: Cough) 7 Days Qty: 21 0RF
metoprolol succinate 25 mg Tablet Extended Release 24 Hr
25 mg PO DAILY 90 Days Qty: 90 3RF
aspirin 81 mg Tablet,Delayed Release (Dr/Ec)
81 mg PO DAILY 90 Days Qty: 90 3RF
Referrals:
Joe Wilson MD, Resident [Family Provider, General]
Interventions
Interventions:
*Risk Screen - Suicide Last Done: 02/10/25 09:38
*General Assessment Last Done: 02/10/25 10:13
*ED- Fall Risk Assessment Last Done: 02/10/25 10:13
*ED COVID-19 Vaccine History Last Done: 02/10/25 10:13
*ED Influenza Vaccine History Last Done: 02/10/25 10:13
ED- Cardiac Assessment Last Done: 02/10/25 10:27
ED- Neurological Assessment Last Done: 02/10/25 10:27
Discharge Date and Time
Print Language: HEBREW
[2025-02-10] MEDS: NSS 1000 IV (10:19)
[2025-02-10 10:33] LABS: Hematocrit 28.7 % (39.0-52.0); Hemoglobin 9.4 g/dL (13.0-18.0); Mean Corp Hgb Conc. 32.8 g/dL (33.0-37.0); Mean Corpuscular Volume 96.6 fL (80.0-94.0); Nucleated Red Blood Cells % 0 % (-); Platelet Count 219 10^3/uL (130-400); Red Cell Dist. Width 12.8 % (11.5-14.5)
[2025-02-10 10:39] LABS: INR 1.06; PT 14.1 Sec (11.4-14.6)
[2025-02-10 10:40] LABS: APTT 25.1 Sec (23.4-35.0)
[2025-02-10 10:45] LABS: ALT (SGPT) 20 U/L (0-50); AST (SGOT) 22 U/L (17-59); Albumin 4.4 g/dl (3.5-5.0); Alkaline Phosphatase 68 U/L (38-126); Blood Urea Nitrogen 41 mg/dl (9-20); Calcium 9.6 mg/dl (8.4-10.2); Carbon Dioxide 21 mmol/L (22-30); Chloride 102 mmol/L (98-107); Estimated Creatinine Clearance 67 ml/min; Glucose 113 mg/dl (70-99); Potassium 4.1 mmol/L (3.5-5.1); Sodium 131 mmol/L (135-145); Total Protein 7.3 g/dl (6.3-8.2); eGFR > 60.00
[2025-02-10] MEDS: PROTONIX 100 IV (10:52)
[2025-02-10] MEDS: PROTONIX IV 80 MG IV (10:52)
[2025-02-10 10:54] LABS: Troponin I 0.015 ng/ml
--- NOTE | 2025-02-10 12:30 | CON.GI ---
Addendum entered and electronically signed by Katelynn Kidd DO 02/10/25 15:33:
The patient was seen and examined by me independently in collaboration with the nurse practitioner.
Past medical history/social history/medications/allergies/family history reviewed.
Lab data and imaging data reviewed.
Roberto Villarreal is a 64 yo. male with pmhx NSTEMI 10/21/24 w/ LHC and PCI x3 (LCx, prox LAD, mid LAD) on 10/22 on prasurgrel and ASA who presents with 1 day of melena and generalized fatigue found to be anemic with a hemoglobin of 9.4, MCV 96.6, Plt 219,
BUN 41. Last hemoglobin was 12.4 on 12/03. He admits to one episodes of bright red blood per rectum with wiping only, this occured on 01/01. Otherwise, no history of GI bleeding. He has never had an EGD or Colonoscopy. He has a family history of colon
cancer in his father, diagnosed around age 66. He admits to drinking 'a few beers daily' as well as taking aleve a few times per week. He is hemodynamically stable.
Suspect UGI bleed with 3 g drop in hgb, elevated BUN and melenic stool, risk factors include DAPT and use of NSAIDs, daily etoh
DDx PUD vs. erosive gastritis/duodenitis vs. AVM vs. Dieulafoy vs. diverticulum vs. ischemic vs. malignancy vs other
-2 peripheral gauge IVs
-IVF
-type and screen, transfuse for Hgb <8
-PPI gtt
-okay for clear liquids
-cardiology consulted--Ideally would hold prasugrel for 4 or 5 days and proceed with EGD, allowing for washout period. That said, he had a recent KS and has 3 fresh stents, likely high risk for stent thrombosis. Another option would be to perform
EGD on his antiplatelets, understanding I have more limited options for intervening on bleeding lesions, but could utilize injection of epinephrine, hemostatic clips or hemospray safely
-will await cardiology consultation to determine best way to proceed
Needs colonoscopy as an outpatient. Very overdue and high risk due to family history of CRC in his father.
Original Note:
Consultation
-
Date/Time Consultation Requested: 02/10/25 1215
Date/Time Consultation Performed: 02/10/25- 1230
Requesting Provider: Asif Johnson DO
Performing Provider: KARLA Molina, Brianda Kidd DO
Reason for Consultation: melena
Medical History
Chief Complaint / HPI
Chief Complaint: dizziness, change in stool pattern
History of Present Illness:
Pt is a 64yo with hx CAD with prior NSTEMI in September 2024 with Prasugrel along with other medication added, HTN, hyperlipidemia, ETOH use daily , presents with onset of fainting sensation and black tarry stools. Pt with hbg 12.4 on 12/03/24 and now
noted with drop to 9.4 with BUN up to 41 with normal platelets, albumin and LFT's.
In review with patient he admits to formed stool then red blood noted x 1 day about 1 month ago. He then started with black stool and dizziness on 02/09 with multiple stools of black since that time. Pt admits to couple of beers daily and 3-4
tabs of Aleve weekly. He denies issues with odynophagia, dysphagia, GERD, nausea, vomiting, hematemesis, abdominal pain, diarrhea, or constipation. No hx EGD or colonoscopy in past. Pt admits to use of metamucil but ran out 1 month ago and did
not restart.
Past Medical History
Past Medical History: CAD, HTN, Hypercholesterolemia, KS and Other (panic attacks, ETOH use )
Past Surgical History: Cardiac (cath with LUIS 10/2024 ), Orthopedic (arthroscopic knee surgery ) and Other (wisdom teeth extraction)
Social History
Tobacco: Non-Smoker
Alcohol: Daily
Drug: None
Living: Alone
Employment: Employed
Family History
Family History: Reviewed & Not Pertinent
Allergies / Home Medications
Allergy/AdvReac Type Severity Reaction Status Date / Time
No Known Allergies Allergy Verified 02/10/25 09:38
�Medication �Instructions �Recorded
glucosamine sulf dipot 1 cap PO DAILY 10/21/24
chlr,msm,chond 550 mg-C 30 mg-falguni
1 mg capsule (Glucosamine
Chondroitin)
lisinopril 10 mg tablet 10 mg PO DAILY 10/21/24
psyllium 1 packet PO DAILY 10/21/24
therapeutic multivitamin 1 tab PO DAILY 10/21/24
turmeric 400 mg capsule 400 mg PO DAILY 10/21/24
aspirin 81 mg tablet,delayed 81 mg PO DAILY 90 days #90 tabs 10/23/24
release
atorvastatin 80 mg tablet 80 mg PO QPM 90 days #90 tabs 10/23/24
benzonatate 100 mg capsule 100 mg PO TIDPRN PRN Cough 7 days 10/23/24
#21 caps
metoprolol succinate 25 mg 25 mg PO DAILY 90 days #90 tabs 10/23/24
tablet,extended release 24 hr
prasugrel HCl 10 mg tablet 10 mg PO DAILY 90 days #90 tabs 10/23/24
Review of Systems
-
History Source: Patient and Family (sister at bedside )
Constitutional: Reports No Symptoms
EENT: Reports No Symptoms
Respiratory: Reports Trouble Breathing (with hiking several weeks ago )
Cardiac: Reports No Symptoms
Abdomen/GI: Reports Bloody Stools (1 month ago x 1 day) and Black Stools
: Reports No Symptoms
Musculoskeletal: Reports Joint Pain
Skin: Reports No Symptoms
Neurological: Reports Dizzy and Weakness
Endocrine: Reports No Symptoms
Hematologic/Lymphatic: Reports Bleeding
Vital Signs
Temp Pulse Resp BP Pulse Ox
98.3 F 100 17 111/65 100
02/10/25 09:38 02/10/25 12:00 02/10/25 12:00 02/10/25 11:00 02/10/25 09:58
Physical Exam
Exam
General: Well Developed, Well Nourished and No Apparent Distress
HEENT: Normocephalic and Anicteric
Respiratory: Clear
Cardiac: Regular Rhythm
GI: Soft, Non Tender and Non Distended
Rectal: Other (dark stool per ER with obvious blood )
Musculoskeletal: No Clubbing and No Cyanosis
Skin: Warm and Dry
Neuro: Awake, Alert and AO x 3
Psych: Calm
Results
WBC 9.5 10^3/uL (4.8-10.8) 02/10/25 10:15
Hgb 9.4 g/dL (13.0-18.0) L 02/10/25 10:15
Hct 28.7 % (39.0-52.0) L 02/10/25 10:15
MCV 96.6 fL (80.0-94.0) H 02/10/25 10:15
Plt Count 219 10^3/uL (130-400) 02/10/25 10:15
Absolute Neuts (auto) 7.5 10^3/uL (1.4-6.5) H 02/10/25 10:15
PT 14.1 Sec (11.4-14.6) 02/10/25 10:15
INR 1.06 02/10/25 10:15
APTT 25.1 Sec (23.4-35.0) 02/10/25 10:15
Sodium 131 mmol/L (135-145) L 02/10/25 10:15
Potassium 4.1 mmol/L (3.5-5.1) 02/10/25 10:15
Chloride 102 mmol/L (98-107) 02/10/25 10:15
Carbon Dioxide 21 mmol/L (22-30) L 02/10/25 10:15
BUN 41 mg/dl (9-20) H 02/10/25 10:15
Creatinine 1.2 mg/dL (0.7-1.3) 02/10/25 10:15
Calcium 9.6 mg/dl (8.4-10.2) 02/10/25 10:15
Total Bilirubin 0.7 mg/dl (0.2-1.3) 02/10/25 10:15
AST 22 U/L (17-59) 02/10/25 10:15
ALT 20 U/L (0-50) 02/10/25 10:15
Alkaline Phosphatase 68 U/L (38-126) 02/10/25 10:15
Diagnostic Image Results:
Prior GI Procedures:
EGD: none
Colonoscopy: none
Assessment / Plan
-
Pt is a 64yo with hx CAD with prior NSTEMI in September 2024 with Prasugrel along with other medication added, HTN, hyperlipidemia, ETOH use daily , presents with onset of fainting sensation and black tarry stools. Pt with hbg 12.4 on 12/03/24 and now
noted with drop to 9.4 with BUN up to 41 with normal platelets, albumin and LFT's. In review with patient he admits to formed stool then red blood noted x 1 day about 1 month ago. He then started with black stool and dizziness on 02/09 with
multiple stools of black since that time. Pt admits to couple of beers daily and 3-4 tabs of Aleve weekly. He denies issues with odynophagia, dysphagia, GERD, nausea, vomiting, hematemesis, abdominal pain, diarrhea, or constipation. No hx EGD or
colonoscopy in past. Pt admits to use of metamucil but ran out 1 month ago and did not restart.
-melena
-anemia with drop in hbg since November
-tachycardia
-red blood per rectal 1 month ago
-NSTEMI with placement of LUIS September 2024
-occasional NSAID use
-daily ETOH use
Other med problems:
-HTN
-hyperlipidemia
-hx panic attacks
PLAN:
etiology of bleeding with concern for UGI bleeding PUD with NSAID use, ectasia, vs other
plan for EGD -- will review timing with Marti Nieto with recent Prasugrel use 10/20 AM
may need to do sooner than wash out if bleeding persists
PPI gtt
trend hbg and stool record
NPO
family updated at bedside
eventual colonoscopy with no prior screening and recent red blood noted 1 month ago
-
-
Thank you for consultation and allowing me to participate in the patient's care. Please call the labor commissioner GI physician during the after hours with any questions or concerns.
--- NOTE | 2025-02-10 12:33 | HPS.HSE ---
Addendum entered and electronically signed by Lourdes Jordan MD 02/10/25 15:48:
Cardiology consulted regarding management of antiplatelet medications given recent NSTEMI.
Original Note:
Family Physician
-
Family Physician: Joe Wilson MD, Resident
Chief Complaint
-
black stool
History of Present Illness
64-year-old male past medical history of CAD, hypertension, alcohol use disorder, hypercholesteremia, presenting with dizziness, near syncope and black stool since yesterday. Continues to have intermittent bits of black stool per rectum. Denies
nausea or vomiting. Denies abdominal pain. Denies shortness of breath or chest pain.
He recently had NSTEMI in September and has since been on aspirin and prasugrel. He had 1 episode of mild bleeding 1 month after the NSTEMI which resolved within a day and he did not seek evaluation at that time.
Denies any prior history of GI bleeding or prior EGD or colonoscopy history.
He drinks 4 glasses of alcohol per day. He only drank 1 drink yesterday. Denies smoking.
His father had colon cancer.
Medical History
Past Medical History
Past Medical History: Reports Other (CAD, hypertension, alcohol use disorder, hypercholesteremia,)
Past Surgical History: Reports None
Social History
Tobacco: Non-smoker
Alcohol: Daily
Drug: None
Family History
Family History: Not pertinent
Allergies / Home Medications
Allergies reflects when Allergies were last updated in [employer].
Home Medications with original date entered in [employer]
Allergy/Medication List:
Allergies
Allergy/AdvReac Type Severity Reaction Status Date / Time
No Known Allergies Allergy Verified 02/10/25 09:38
Home Medications
glucosamine sulf dipot chlr,msm,chond 550 mg-C 30 mg-falguni 1 mg capsule (Glucosamine Chondroitin) 1 cap PO DAILY 10/21/24
lisinopril 10 mg tablet 10 mg PO DAILY 10/21/24
psyllium 1 packet PO DAILY 10/21/24
therapeutic multivitamin 1 tab PO DAILY 10/21/24
turmeric 400 mg capsule 400 mg PO DAILY 10/21/24
aspirin 81 mg tablet,delayed release 81 mg PO DAILY 90 days #90 tabs 10/23/24
atorvastatin 80 mg tablet 80 mg PO QPM 90 days #90 tabs 10/23/24
benzonatate 100 mg capsule 100 mg PO TIDPRN PRN Cough 7 days #21 caps 10/23/24
metoprolol succinate 25 mg tablet,extended release 24 hr 25 mg PO DAILY 90 days #90 tabs 10/23/24
prasugrel HCl 10 mg tablet 10 mg PO DAILY 90 days #90 tabs 10/23/24
Review of Systems
-
History Source: Patient
A 12 point ROS was completed and negative except as noted: Yes
Constitutional: Reports No Symptoms
EENT: Reports No Symptoms
Respiratory: Reports No Symptoms
Cardiac: Reports No Symptoms
Abdomen/GI: Reports No Symptoms
: Reports No Symptoms
Musculoskeletal: Reports No Symptoms
Skin: Reports No Symptoms
Neurological: Reports No Symptoms
Endocrine: Reports No Symptoms
Hematologic/Lymphatic: Reports No Symptoms
Psych: Reports No Symptoms
Physical Exam
Vital Signs
Vital Signs
Temp Pulse Resp BP Pulse Ox
98.3 F 100 17 111/65 100
02/10/25 09:38 02/10/25 12:00 02/10/25 12:00 02/10/25 11:00 02/10/25 09:58
Physical Exam
General: Well Developed, Well Nourished and No Apparent Distress
HEENT: NormoCephalic, Moist mucous membranes and Atraumatic
Respiratory: Clear
Cardiac: S1/S2 and Regular Rhythm; No Murmur or Rub
GI: Soft, Non Tender, Non Distended and Normal Bowel Sounds; No Organomegaly
Rectal: Deferred by Provider
Musculoskeletal: No Clubbing, No Cyanosis and No Edema
Skin: No Rash
Neuro: Nonfocal/grossly intact
Laboratory Results
-
02/10/25 10:15
02/10/25 10:15
Laboratory Results
PT 14.1 Sec (11.4-14.6) 02/10/25 10:15
INR 1.06 02/10/25 10:15
APTT 25.1 Sec (23.4-35.0) 02/10/25 10:15
Total Bilirubin 0.7 mg/dl (0.2-1.3) 02/10/25 10:15
AST 22 U/L (17-59) 02/10/25 10:15
ALT 20 U/L (0-50) 02/10/25 10:15
Alkaline Phosphatase 68 U/L (38-126) 02/10/25 10:15
Troponin I 0.015 ng/ml 02/10/25 10:15
Data Reviewed
-
Lab Data: Labs Reviewed by me
Old Records: Reviewed
Impression/Plan
-
IMPRESSION:
PLAN:
# Upper GI bleeding secondary to aspirin/prasugrel
# Acute blood loss anemia
-Dark and bloody stools
- N.p.o.
- Hemoglobin dropped from 12.4-9.4
- IV fluids given
- Protonix 40 twice daily
-Hold aspirin/prasugrel
- GI consulted
#CAD
# Recent NSTEMI status post PCI x 2 of LAD and OM 2 on 10/22
- Continue statin
- Hold aspirin/prasugrel for now
- Continue metoprolol
Essential hypertension
-Hold lisinopril for now
Alcohol use disorder
- Alcohol withdrawal protocol
- No signs of withdrawal currently
Hypercholesteremia
Full code
DVT prophylaxis SCDs
N.p.o.
--- NOTE | 2025-02-10 13:06 | CM ---
wellness program manager reviewed patient's chart and met with patient and sister at bedside. Patient states he lives alone in a 1st floor apartment, one set to enter, patient is independent with adl's and ambulation, no dme.
PCP: Joe Wilson
Pharmacy: [facility] in [place].
[2025-02-10 14:09] LABS: Iron 128 ug/dl (49-181)
[2025-02-10 14:18] LABS: Total Iron Binding Capacity 431 ug/dl (261-462)
[2025-02-10 14:45] LABS: Ferritin 25.1 ng/ml (17.9-464.0)
[2025-02-10 15:16] LABS: Folate > 20.0 ng/ml (2.76-20); Vitamin B12 346 pg/ml (239-931)
--- NOTE | 2025-02-10 15:43 | CON.CAR ---
Addendum entered and electronically signed by Mohan Negro MD 02/10/25 17:11:
I saw and evaluated the patient, and I provided the substantive portion of the medical decision making.
I reviewed and agree with the note by Ms Winn and it accurately reflects our care.
I personally performed the medical decision making of the this encounter and my assessment and plan is below:
64 y/o male (patient of Dr. Dimas) with hypertension, hyperlipidemia, and CAD with NSTEMI and stenting 10/22/2024 who is here for dizziness (worse with standing) and stool that looks like 'motor oil'; consistent with melena/hematochezia.
Notable stenting in October, and after discussion with IC OK to hold prasugrel and prefer to only hold aspirin 1-2 days.
Please monitor H&H as patient's BP are borderline and he is tachycardic consistent with near instability.
Original Note:
Consultation
Consultation Request
Date/Time Consultation Requested: 02/10/25 1536
Date/Time Consultation Performed: 02/10/25 1541
Requesting Provider: Susu ACOSTA
Performing Provider: Cally ACOSTA for Dr. Negro
Reason for Consultation: GIB in patient on DAPT for stenting
Medical History
-
Chief Complaint: dizziness and black diarrhea
History of Present Illness:
64 y/o male (patient of Dr. Dimas) with hypertension, hyperlipidemia, and CAD with NSTEMI and stenting 10/22/2024 who is here for dizziness (worse with standing) and stool that looks like 'motor oil'. This started yesterday afternoon. In ER, he is
seen to have hgb 9.4, which is down from 12.4 two months ago. BP is on low end. He has received 1 L IVF, and he is on PPI drip. He has 4 light beers daily and takes NSAIDs PRN. Sister at bedside. He is in no distress. Feels a little better than
yesterday actually.
Past Medical History
Past Medical History: CAD, HTN and Hypercholesterolemia
Social History
Tobacco: Non-Smoker
Alcohol: Daily (4 light beers daily)
Family History
Family History: Reviewed & Not Pertinent
Allergies / Home Medications
Allergy/AdvReac Type Severity Reaction Status Date / Time
No Known Allergies Allergy Verified 02/10/25 09:38
�Medication �Instructions �Recorded �Confirmed �Type
glucosamine sulf dipot 1 cap PO DAILY 10/21/24 10/21/24 History
chlr,msm,chond 550 mg-C 30 mg-falguni
1 mg capsule (Glucosamine
Chondroitin)
lisinopril 10 mg tablet 10 mg PO DAILY 10/21/24 10/21/24 History
psyllium 1 packet PO DAILY 10/21/24 10/21/24 History
therapeutic multivitamin 1 tab PO DAILY 10/21/24 10/21/24 History
turmeric 400 mg capsule 400 mg PO DAILY 10/21/24 10/21/24 History
aspirin 81 mg tablet,delayed 81 mg PO DAILY 90 days #90 tabs 10/23/24 10/21/24 Rx
release
atorvastatin 80 mg tablet 80 mg PO QPM 90 days #90 tabs 10/23/24 Rx
benzonatate 100 mg capsule 100 mg PO TIDPRN PRN Cough 7 days 10/23/24 Rx
#21 caps
metoprolol succinate 25 mg 25 mg PO DAILY 90 days #90 tabs 10/23/24 Rx
tablet,extended release 24 hr
prasugrel HCl 10 mg tablet 10 mg PO DAILY 90 days #90 tabs 10/23/24 Rx
Review of Systems
-
History Source: Patient
All other systems: Negative unless noted
Abdomen/GI: Black Stools
Neurological: Dizzy
Physical Exam
Vital Signs
Temp Pulse Resp BP Pulse Ox
98.1 F 97 18 101/57 99
02/10/25 15:38 02/10/25 15:38 02/10/25 15:38 02/10/25 15:38 02/10/25 15:38
Lab Results
02/10/25 10:15
02/10/25 10:15
Troponin I 0.015 ng/ml 02/10/25 10:15
Physical Exam
General: Well Developed, Well Nourished and No Apparent Distress
HEENT: Normocephalic and Anicteric
Respiratory: Clear and Non Labored Respirations
Cardiac: Regular Rhythm
Musculoskeletal: No Edema
Skin: Warm
Neuro: AO x 3
Psych: Calm
Impression / Plan
-
Acute anemia/GIB:
-check another H&H now
-GI following- EGD is planned- will discuss DAPT with director digital marketing
CAD with hx NSTEMI and stenting:
-stable without CP, EKG stable
-Cardiac cath 10/22/24: PCI of the mid LAD, proximal LAD, and OM2
-he took aspirin and prasugrel this AM. Will discuss with director digital marketing.
HTN:
-BP's low
-hold ACEI for now and monitor
HLD:
-statin
Data:
Cardiac cath 10/22/24: PCI of the mid LAD, proximal LAD, and OM2
Cardiac cath 10/21/24: LM: There is an eccentric 20-30% distal vessel stenosis. LAD: Large vessel giving rise to a large D1 and moderate caliber D2. There is a 50% calcified proximal stenosis and a long up to 70% calcified stenosis in the mid vessel
ending just at the D2 to bifurcation. LCx: Moderate caliber vessel giving rise to moderate caliber OM1 and moderate caliber OM2. There is an long up to 80% stenosis spanning from the mid circumflex just before the OM 2 into the OM2 itself. RCA: Very
large vessel giving rise to a large RPDA and two large RPL branches. There is mild diffuse disease.
Echo 10/22/24: Normal biventricular size and systolic function without regional wall motion abnormality. LV ejection fraction is 55-60% by Lugo's method of discs. Normal diastolic function. Mild aortic regurgitation. Possible small PFO noted on
color flow Doppler.
Data Reviewed
-
EKG: Tracing Personally Visualized and interpreted (NSR 93 BPM, nonspecific ST abnormality)
Medical Tests (Nuc Med, Echo etc): Report Reviewed by me (echo and caths as noted)
Labs: Labs Reviewed by me
[2025-02-10 17:18] LABS: Hematocrit 20.5 % (39.0-52.0); Hemoglobin 6.4 g/dL (13.0-18.0)
--- NOTE | 2025-02-10 17:26 | PTCARENOTE ---
critical Hbg level of 6.4. notified
--- NOTE | 2025-02-10 17:41 | W.PN.UPDATE ---
Update Note
Progress Note Update
Received notice that hemoglobin is now at 6.4 from 9.4. Patient with blood pressure 80s with tachycardia up to 107. Type and screen, 2 units of blood ordered. No active bleeding at the current time. Patient with two 20-gauge IVs. Patient
upgraded to ICU. GI notified.
[2025-02-10 18:41] LABS: Glucose - Point of Care 132 mg/dl (70-99)
[2025-02-10] MEDS: LR 250 IV (19:57)
[2025-02-10] MEDS: PROTONIX IV 40 MG IV (19:58)
[2025-02-10] MEDS: NSS (PRESERVATIVE FREE) 10 ML IV (19:58)
--- NOTE | 2025-02-10 20:15 | PTCARENOTE ---
Received patient at change of shift from ED nurse, bedside report given upon patient arrival to ICU. Patient aao x3, able to make needs known, anxiety noted. Patient appearance pale, skin dry and cool. HR 90's, NSR on the monitor, positive pulses.
Lungs clear throughout. Patient states last BM in ED earlier today, ED RN confirms patient passed dark maroon clots followed by dizziness, lightheadedness. At this time, instructed patient to remain in bed, use call bed when needed. Patient able to
teach back and verbalize understanding. Patient admits to drinking daily. MSAS started. Awaiting blood from blood bank. Patient SBP in the 80's, MAP 50's. Notified Fili ACOSTA, started IV bolus and ordered Norepinepherine if needed post bolus.
SBP increased to 90's, MAP >60 post bolus. Will continue to monitor and send for blood when able.
[2025-02-10] MEDS: LACTATED RINGERS 250 IV (20:39)
--- NOTE | 2025-02-10 22:13 | PTCARENOTE ---
1st unit of blood running without concern. Patient resting in bed, call tran within reach. Will continue to monitor patient closely.
[2025-02-11] VITALS (54 sets, daily range): BP systolic 85–142; BP diastolic 45–120; BMI 25.6
--- NOTE | 2025-02-11 01:17 | PTCARENOTE ---
2nd unit of blood running, patient tolerating well. Confirms he is starting to feel better. BPs more stable as well. Assessment otherwise unchanged. Call tran within reach, will continue to monitor.
--- NOTE | 2025-02-11 03:11 | PTCARENOTE ---
2nd unit of blood transfused. Patient awakens to verbal stimuli, denies pain. SBP sustained in the 90's with MAPs 60's-70. Denies dizziness or lightheadedness. Call tran within reach. Will continue to monitor patient closely.
[2025-02-11 04:56] LABS: Hematocrit 22.5 % (39.0-52.0); Hemoglobin 7.6 g/dL (13.0-18.0); Mean Corp Hgb Conc. 33.8 g/dL (33.0-37.0); Mean Corpuscular Volume 92.2 fL (80.0-94.0); Nucleated Red Blood Cells % 0 % (-); Platelet Count 135 10^3/uL (130-400); Red Cell Dist. Width 13.2 % (11.5-14.5)
[2025-02-11 05:01] LABS: ALT (SGPT) 14 U/L (0-50); AST (SGOT) 18 U/L (17-59); Albumin 3.0 g/dl (3.5-5.0); Alkaline Phosphatase 36 U/L (38-126); Blood Urea Nitrogen 64 mg/dl (9-20); Calcium 8.1 mg/dl (8.4-10.2); Carbon Dioxide 21 mmol/L (22-30); Chloride 109 mmol/L (98-107); Estimated Creatinine Clearance 81 ml/min; Glucose 107 mg/dl (70-99); Potassium 4.2 mmol/L (3.5-5.1); Sodium 135 mmol/L (135-145); Total Protein 5.2 g/dl (6.3-8.2); eGFR > 60.00
[2025-02-11 06:14] LABS: Urine Character Clear (Clear)
[2025-02-11 06:45] LABS: Urine Red Blood Cell 0-2 /HPF (0-2); Urine Squamous Cell 0-2 /LPF (Few); Urine White Cell 0-2 /HPF (0-5)
--- NOTE | 2025-02-11 07:30 | PTCARENOTE ---
Received patient A&Ox4, anxious looking, trying to get dressed himself for EGD procedure this morning, on RA, NSR, BP WNL, NPO, no bleeding bowel movements overnight, w/ Urinal.
[2025-02-11] MEDS: PROTONIX IV 40 MG IV ×2 (07:56→19:39)
[2025-02-11] MEDS: NSS (PRESERVATIVE FREE) 10 ML IV ×2 (07:56→19:40)
[2025-02-11] MEDS: THIAMINE INJECTION 100 MG IV (07:57)
[2025-02-11] MEDS: FOLVITE PO (08:16)
--- NOTE | 2025-02-11 08:27 | CON.INTV ---
Consultation
Consultation Request
Date/Time Consultation Requested: 02/10/2025
Date/Time Consultation Performed: 02/11/2025 - 08
Requesting Provider: Dr. Jordan
Performing Provider: Dr. Bowie
Reason for Consultation: GI bleed
Medical History
-
Chief Complaint: Dizzy/dark stool
History of Present Illness:
64-year-old male with a past medical history of CAD with history of NSTEMI s/p PCI LUIS to mid LAD, proximal LAD and OM 2, possible small PFO seen on echo in October 2024, hypertension, hyperlipidemia, history of panic attacks and alcohol use disorder
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 He initially thought that it was due to the medications that he is taking since his MA + stents placed few months ago. He has been having dark stool as well. He apparently had an episode of mild
bleeding 1 month after his NSTEMI which resolved within a day. Labs initially showed Hb 9.4, platelet count 219, sodium 131, BUN 41, troponin 0.015, and he initially was normotensive at 125/79, tachycardic to 107, afebrile, respiratory rate 18 and
saturating 100% on room air. Repeat hemoglobin dropped to 6.4 on the evening of 02/10, and 2 units of blood were ordered and he was upgraded to the ICU. GI was notified. [employer] service consulted for additional management/recommendations.
Pt seen and evaluated this AM. Underwent EGD this AM, had clipping x2 at duodenum due to spurting hemorrhage seen. Pt not having melena this AM or rectal bleeding. Last BM yesterday. Received 2 U PRBC overnight into this AM. Will be giving him a
3rd unit of PRBC now. Patient mainly wants to eat. He otherwise has no chest pain, MENDEZ, nausea, fevers or chills. He does have some abdominal discomfort since coming back from the endoscopy. Patient's sister, Radha, is present at bedside and all
questions were answered.
PMHx: CAD, hypertension, alcohol use disorder, hypercholesterolemia, history of anxiety/panic attacks
PSHx: Coronary cath, right knee arthroscopic surgery, wisdom tooth removal
Past Medical History
Past Medical History: Other (Above as per HPI)
Past Surgical History: Other (Above as per HPI)
Social History
Tobacco: Non-smoker
Alcohol: Daily (5-6 beers daily)
Drug: None
Family History
Family History: CAD (Father), Cancer (Father: Colon cancer; Sister: Melanoma) and Other (Mother: Alzheimer's dementia)
Allergies / Home Medications
Allergies
Allergy/AdvReac Type Severity Reaction Status Date / Time
No Known Allergies Allergy Verified 02/10/25 09:38
Home Medications
�Medication �Instructions �Recorded �Confirmed �Last Taken �Type
glucosamine sulf dipot 1 cap PO DAILY 10/21/24 02/11/25 Unknown History
chlr,msm,chond 550 mg-C 30 mg-falguni
1 mg capsule (Glucosamine
Chondroitin)
lisinopril 10 mg tablet 10 mg PO DAILY 10/21/24 02/11/25 10/21/24 History
psyllium 1 packet PO DAILY 10/21/24 02/11/25 Unknown History
therapeutic multivitamin 1 tab PO DAILY 10/21/24 02/11/25 Unknown History
turmeric 400 mg capsule 400 mg PO DAILY 10/21/24 10/21/24 Unknown History
aspirin 81 mg tablet,delayed 81 mg PO DAILY 90 days #90 tabs 10/23/24 02/11/25 Unknown Rx
release
atorvastatin 80 mg tablet 80 mg PO QPM 90 days #90 tabs 10/23/24 02/11/25 02/09/25 Rx
metoprolol succinate 25 mg 25 mg PO DAILY 90 days #90 tabs 10/23/24 02/11/25 Unknown Rx
tablet,extended release 24 hr
prasugrel HCl 10 mg tablet 10 mg PO DAILY 90 days #90 tabs 10/23/24 02/11/25 Unknown Rx
Review of Systems
-
History Source: Patient
All other systems: Negative unless noted
Vitals / Labs / Diagnostic Testing
Vital Signs
Temp Pulse Resp BP Pulse Ox
97.8 F 93 17 100/63 100
02/11/25 08:00 02/11/25 09:00 02/11/25 09:00 02/11/25 09:00 02/11/25 09:00
Lab Data
02/11/25 04:10
Laboratory Results
02/10/25
10:15
PT 14.1
INR 1.06
APTT 25.1
Diagnostic Testing:
Physical Exam
-
HEENT: Normocephalic and Anicteric
Cardiovascular: S1/S2 and Peripheral Edema (negative)
Respiratory: Wheeze (negative), Rales (negative), Rhonchi (negative) and Non-Labored Respirations
GI: Soft, Non Distended, Tender (Mild epigastric tenderness to palpation) and Normal Bowel Sounds
Neurology: AO x 3 and Tremors (negative)
Skin: Warm and Dry
General: Respiratory Distress (negative), Comfortable, Fever (negative) and Chills (negative)
Assessment
-
Assessment: 64-year-old male with a past medical history of CAD with history of NSTEMI s/p PCI LUIS to mid LAD, proximal LAD and OM 2, possible small PFO seen on echo in October 2024, hypertension, hyperlipidemia, history of panic attacks and alcohol
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 He initially thought that it was due to the medications that he is taking since his MA + stents placed few months ago. He has been having dark stool as well. He apparently had an
episode of mild bleeding 1 month after his NSTEMI which resolved within a day. Labs initially showed Hb 9.4, platelet count 219, sodium 131, BUN 41, troponin 0.015, and he initially was normotensive at 125/79, tachycardic to 107, afebrile,
respiratory rate 18 and saturating 100% on room air. Repeat hemoglobin dropped to 6.4 on the evening of 02/10, and 2 units of blood were ordered and he was upgraded to the ICU. GI was notified. [employer] service consulted for additional
management/recommendations.
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
Impression:
#Acute upper gastrointestinal hemorrhage with spurting duodenal ulcer s/p hemostatic spray + hemostatic clips x 2
#2V-CAD with NSTEMI in September 2024 s/p PCI LUIS into the proximal and mid LAD + OM2 on prasugrel + ASA as an outpatient (on prasugrel as it is affordable for him)
#Alcohol use disorder
#Hyperlipidemia
#Hypertension
Plan:
- Large bore IV x2
- PPI 40mg IV BID
- NPO - defer starting diet to GI - -> if Hb stable then can do clears tonight
- Anti-emetics as needed
- Will be getting 3rd unit PRBC now (ordered after I spoke with GI)
- Serial CBC to assure Hb + platelets are stable, transfusing to keep Hb >8g/dL (given recent NSTEMI with stents x3 placed), keep plt>50k
- Continue to hold ASA and prasugrel, with plans to start ASA tomorrow if Hb remains stable (patient's case was discussed with tapeman, Dr. Mckeon, and GI, Dr. Kidd, and both agree with this)
- For now, hold antiplatelets/anticoagulants
- Pain control
- If Hb becomes unstable or if he develops HDN instability, worsening tachycardia, worsening abd pain or worsening melena, rectal bleeding or hematemesis, then GI needs to be notified immediately, and if GI unable to offer endoscopy then we will
need to consult IR for angio/embolization
- Keep MAP>65
- Monitor for signs of alcohol withdrawal; currently there is none
- Thiamine + folic acid
- Maintain SpO2 >90-94% using supplemental O2 if needed
- prn nebulized bronchodilators - not currently bronchospastic
- Incentive spirometer encouraged 10x per hour for at least 4 hrs a day
- Replete electrolytes with K>4, Mg>2
- Maintain euglycemia with goal BG 140-180; HbA1c: 5.6 on 10/21/2024
- DVT ppx: SCDs for now
If hemoglobin remains stable then patient will be downgraded to IMU. Once downgraded then technology trainer/pulmonary service will sign off. Please call back with any questions or concerns, and thank you for allowing us to be involved in the care of
this patient
Total time spent today was 81 minutes for this encounter. Time includes reviewing laboratory test/imaging results, reviewing pertinent medical records, obtaining and reviewing medical history, performing an appropriate exam, ordering medications,
tests and procedures. Time also includes documentation of this encounter, coordinating patient care and communicating with other healthcare professionals. Total time does not include separately billed tests performed on this date of service.
--- NOTE | 2025-02-11 08:49 | W.PN.UPDATE ---
Update Note
Progress Note Update
Patient hemoglobin dropped from 9.4 --> 6.4 last night with associated hypotension and tachycardia, transferred to ICU. He was subsequently transfused with 2 units of PRBC, repeat hgb 7.9. Given concern for unstable GI bleeding, will plan to proceed
with EGD today. Although I cannot use cautery due to his recent use of antiplatelets, I have other therapeutic modalities that can be utilized to acheive hemostasis. Patient is in agreement with plan.
--- NOTE | 2025-02-11 09:19 | W.PN.CD ---
Today's Communication / Plan
-
EGD today
Resume DAPT vs ASA monotherapy once safe from a GI standpoint. Will discuss with IC.
Impression / Plan
-
Acute anemia/GIB:
- Diagnosis is a threat to life. Associated hypotension and tachycardia
- S/p 2 units PRBCs on 02/10/2025
- Plan for EGD today. GI following.
- Holding aspirin and prasugrel. Resume antiplatelets once safe from a hemostasis standpoint. Will likely switch to Plavix vs ASA monotherapy.
CAD with hx NSTEMI and stenting:
-stable without CP, EKG stable
-Cardiac cath 10/22/24: PCI of the mid LAD, proximal LAD, and OM2
-Holding antiplatelet agents as above while GI bleeding is sorted out
HTN:
-BP's low
-hold ACEI for now and monitor
HLD:
-statin
Subjective: Denies chest pain.
Data:
Cardiac cath 10/22/24: PCI of the mid LAD, proximal LAD, and OM2
Cardiac cath 10/21/24: LM: There is an eccentric 20-30% distal vessel stenosis. LAD: Large vessel giving rise to a large D1 and moderate caliber D2. There is a 50% calcified proximal stenosis and a long up to 70% calcified stenosis in the mid vessel
ending just at the D2 to bifurcation. LCx: Moderate caliber vessel giving rise to moderate caliber OM1 and moderate caliber OM2. There is an long up to 80% stenosis spanning from the mid circumflex just before the OM 2 into the OM2 itself. RCA: Very
large vessel giving rise to a large RPDA and two large RPL branches. There is mild diffuse disease.
Echo 10/22/24: Normal biventricular size and systolic function without regional wall motion abnormality. LV ejection fraction is 55-60% by Lugo's method of discs. Normal diastolic function. Mild aortic regurgitation. Possible small PFO noted on
color flow Doppler.
Physical Exam
Vital Signs/Labs
Vital Signs
Temp Pulse Resp BP Pulse Ox
97.8 F 93 17 100/63 100
02/11/25 08:00 02/11/25 09:00 02/11/25 09:00 02/11/25 09:00 02/11/25 09:00
02/10/25 02/11/25 02/12/25
06:59 06:59 06:59
Actual Weight 183 lb 3.266 oz
02/11/25 04:10
PT 14.1 Sec (11.4-14.6) 02/10/25 10:15
INR 1.06 02/10/25 10:15
APTT 25.1 Sec (23.4-35.0) 02/10/25 10:15
LAB Results
02/10/25
10:15
Troponin I 0.015
Physical Exam
Constitutional: No acute distress and Comfortable
Cardiovascular: Rhythm & rate is regular, Pedal edema is absent, S1S2 is normal and Murmur/rub/gallop absent
Respiratory: Respiratory effort normal and Lungs clear to auscul.
Neuro/Psych: AO x 3
Data Reviewed
-
Date of Service: February 11, 2025
Medical Decision Making: Reviewed Test Results, Test Interpretation and Review of Case with other Provider
EKG: Tracing Personally Visualized and interpreted
Echo: Report Reviewed by me
Labs: Labs Reviewed by me
[2025-02-11] MEDS: MORPHINE SULFATE 2 MG IV (11:07)
[2025-02-11] MEDS: ZOFRAN 4 MG IV (11:07)
--- NOTE | 2025-02-11 11:30 | PTCARENOTE ---
Reassessed the patient, back from GI Lab, found 1 duodenal ulcer, clipped. Patient complained of Nausea and Generalized abdomen pain after clipping, One time Zofran and Morphine given, patient felt relived after.
[2025-02-11 11:56] LABS: Hematocrit 20.5 % (39.0-52.0); Hemoglobin 7.0 g/dL (13.0-18.0)
[2025-02-11] MEDS: FOLVITE 50.2 MG IV (12:24)
--- NOTE | 2025-02-11 14:29 | W.PN.HOSP.TC ---
Today's Communication/Plan
-
NPO, ADAT as per GI
Monitor CBC, repeat hgb later today
Maintain hgb >7, transfuse as needed
PPI
Assessment / Plan
Assessment / Plan
Physical Exam
General: Well Developed, Well Nourished and No Apparent Distress
HEENT: NormoCephalic, Moist mucous membranes and Atraumatic
Respiratory: Clear
Cardiac: S1/S2 and Regular Rhythm; No Murmur or Rub
GI: Soft, Non Tender, Non Distended and Normal Bowel Sounds; No Organomegaly
Rectal: Deferred by Provider
Musculoskeletal: No Clubbing, No Cyanosis and No Edema
Skin: No Rash
Neuro: Nonfocal/grossly intact
# Upper GI bleeding secondary to aspirin/prasugrel
# Acute blood loss anemia
-Dark and bloody stools
-02/11 EGD - spurting duodenal ulcer with spurting hemorrhage. Hemostatic spray applied. Treatment not successful. Clips were placed.
- ADAT once cleared by GI
-MOnitor CBC
- Protonix 40 twice daily
-Hold aspirin/prasugrel; resume once cleared by GI; most likely will switch to ASA, Plavix
- GI consulted
#CAD
# Recent NSTEMI status post PCI x 2 of LAD and OM 2 on 10/22
- Continue statin
- Hold aspirin/prasugrel for now
- Continue metoprolol
Essential hypertension
-Hold lisinopril for now
Alcohol use disorder
- Alcohol withdrawal protocol
- No signs of withdrawal currently
Hypercholesteremia
Full code
DVT prophylaxis SCDs
Total Critical Care Time 45 minutes. I was immediately available to the patient and staff. I personally examined, reviewed labs, diagnostic images/reports, interpretations, treatment plans, discussed patient care with other providers and family
or caregivers (if patient is unable to make decisions), entered orders as appropriate and documented the medical record.
Anticipated Discharge: > 48 hours
Subjective/Interval History
-
Date of Service: February 11, 2025
EGD today Spurting duodenal ulcer with spurting hemorrhage. Hemostatic spray applied. Treatment not successful. Clips
were placed.
Objective Data
-
Labs:
Laboratory Results
02/11/25 02/11/25 02/11/25
04:10 11:22 17:00
WBC 6.9
Hgb 7.6 L 7.0 L Pending
Hct 22.5 L 20.5 L* Pending
Plt Count 135 D
Sodium 135
Potassium 4.2
Chloride 109 H
Carbon Dioxide 21 L
BUN 64 H
Creatinine 1.0
Glucose 107 H
Calcium 8.1 L D
Total Bilirubin 0.5
AST 18
ALT 14
Alkaline Phosphatase 36 L
Vital Signs:
Vital Signs
Temp Pulse Resp BP Pulse Ox
98.4 F 90 17 121/74 99
02/11/25 14:27 02/11/25 14:27 02/11/25 14:27 02/11/25 14:27 02/11/25 13:03
I&O
02/10/25 02/11/25 02/12/25
06:59 06:59 06:59
Intake Total 1979 / 1979 250 / 250
Output Total 825 / 825 700 / 700
Balance 1155 / 1155 -450 / -450
Review of Systems
-
History Source: Patient
All other systems: Not reviewed unless documented
Data Reviewed
-
Diagnostic Radiology: Report Reviewed by me
Labs: Labs Reviewed by me
--- NOTE | 2025-02-11 15:32 | CM ---
Unstable UGI bleed, Endoscopy today, NPO, following CBC/Hgb. Discharge POC: TBD.
[2025-02-11 15:49] LABS: Hematocrit 23.3 % (39.0-52.0); Hemoglobin 8.2 g/dL (13.0-18.0)
--- NOTE | 2025-02-11 16:07 | PTCARENOTE ---
Reassessed the patient, Rechecked Hgb 8.2 after #3u PRBC transfusion, VSS. Per GI Dr. Kidd, okay to put patient on clear liquid diet.
--- NOTE | 2025-02-11 18:00 | PTCARENOTE ---
Patient OOB to chair for dinner, standby assistance, tolerated activity.
--- NOTE | 2025-02-11 20:42 | PTCARENOTE ---
Received patient at start of shift, patient aao x3, affect flat. Denies pain, able to make needs known. NSR on the monitor. States that he ate Jello and broth for dinner and is feeling well after. LS CTA throughout, no sob or hauser noted. BS active
x4, patient using urinal as needed. RN offered to assist patient to bathroom for pm care/hygiene, patient states that previous nurse already assisted patient to complete care. Denies further needs at this time. Patient with left and right IV int,
both patent. Call tran within reach, patient using call tran appropriately. Will continue to monitor patient closely.
[2025-02-12] VITALS (60 sets, daily range): BP systolic 80–160; BP diastolic 48–93; BMI 25.5
--- NOTE | 2025-02-12 02:29 | DOWNTIME ---
There was a [employer] Downtime on 02/12/2025 from 0100 to 02/12/2025 at 0215. Downtime documentation of patient's care, including medication administrations, has been reconciled in the electronic record per guidelines. Refer to the
patient's paper chart under the miscellaneous tab to see printed paper medication records and downtime forms.
[2025-02-12 04:29] LABS: Hematocrit 18.9 % (39.0-52.0); Hemoglobin 6.1 g/dL (13.0-18.0); Mean Corp Hgb Conc. 32.3 g/dL (33.0-37.0); Mean Corpuscular Volume 97.4 fL (80.0-94.0); Platelet Count 130 10^3/uL (130-400); Red Cell Dist. Width 13.9 % (11.5-14.5)
[2025-02-12 04:35] LABS: Blood Urea Nitrogen 42 mg/dl (9-20); Calcium 7.8 mg/dl (8.4-10.2); Carbon Dioxide 21 mmol/L (22-30); Chloride 111 mmol/L (98-107); Estimated Creatinine Clearance 101 ml/min; Glucose 154 mg/dl (70-99); Magnesium 1.9 mg/dl (1.6-2.3); Potassium 4.4 mmol/L (3.5-5.1); Sodium 135 mmol/L (135-145); eGFR > 60.00
[2025-02-12] MEDS: ZOFRAN 4 MG IV ×2 (04:52→14:25)
--- NOTE | 2025-02-12 05:06 | PTCARENOTE ---
Patient had large melatinous bm a short time ago. Hgb was 8.2 yesterday at 1700, this morning dropped to 6.1. He continues to have large gelatinous bms, maroon color. Patient c/o nausea, prn zofran administered.
ACUPUNCTURE PHYSICIAN ordered 1u of PRBC which just started running now. GI MD director council on aging notified via tt.
--- NOTE | 2025-02-12 05:53 | PTCARENOTE ---
Spoke with Dr. Knight, updated with patients vs, tachycardic in low 100's, sbp low 100's throughout shift. Dr. Knight instructed to continue blood transfusion and states she will contact Dr. Kidd to discuss plan; return to GI for EGD, or IR
for embolization. Patient continues to have loose, watery, maroon liquid from rectum. Call tran within reach. Discussed loc with KARLA Marinelli, upgraded to ICU loc at this time.
--- NOTE | 2025-02-12 06:17 | W.PN.UPDATE ---
Addendum entered and electronically signed by KARLA Lima 02/12/25 06:54:
Dr Jara recommends CTA abd/pelvis first. Order entered.
Original Note:
Update Note
Progress Note Update
Notified by RN that since about 0400 pt started with hematochezia, Large amount of gelatinous maroon/burgundy stools x6. HH this morning 6.1--> one unit prbc ordered originally then ordered second with ongoing bleeding.
RN reached out to GI distribution manager Dr Knight who contacted Dr Kidd who did endoscopy yesterday. Due to the complicated bleed of the duodenal ulcer- they want IR STAT for embolization given limited endoscopic therapeutic
modalities in the setting of dual-antiplatelet use.
BPs soft 90-100s/50s. MAP >65 .HR teens. Upgraded back to ICU level of care.
TT sent to IR Dr Jara @0616am.
[2025-02-12] MEDS: NSS 1000 IV (06:42)
[2025-02-12] MEDS: FOLVITE PO (07:24)
[2025-02-12] MEDS: THIAMINE INJECTION 100 MG IV (07:28)
[2025-02-12] MEDS: PROTONIX IV 40 MG IV ×2 (07:29→19:20)
[2025-02-12] MEDS: NSS (PRESERVATIVE FREE) 10 ML IV ×2 (07:29→19:20)
--- NOTE | 2025-02-12 08:00 | PTCARENOTE ---
Received patient from shrimp picker. patient is AAOX4, on room air, sinus rhythm, to sinus tach (102) on monitor. patient is receiving first unit of blood. He is NPO, using urinal and bedpan appropriately. PAtient has bilateral 20g in AC. NSS
running at 125. Will review orders. patient is due to go to CT scan and has IR consult pending results.
--- NOTE | 2025-02-12 08:27 | W.PN.INTV ---
Today's Communication / Plan
Recommendations
S/p IR for embolization of GDA
PPI
Large bore IV x2
IVF
Keep NPO for now with plans to start clear liquids tonight if okay with GI + IR
Continue serial CBC with goal Hb >8 g/dL and platelets >50k
Hold antiplatelets/anticoagulants for now
GI + cardiology on board
If bleeding were to occur again then immediately need to contact GI + IR, and the next service that will likely do an intervention is surgery
Continue ICU level of care
Assessment
-
Assessment: 64-year-old male with a past medical history of CAD with history of NSTEMI s/p PCI LUIS to mid LAD, proximal LAD and OM 2, possible small PFO seen on echo in October 2024, hypertension, hyperlipidemia, history of panic attacks and alcohol
use disorder who presents with dizziness that started 1 day [employer]. He initially thought that it was due to the medications that he is taking since his AR + stents placed few months ago. He has been having dark stool as well. He apparently had an
episode of mild bleeding 1 month after his NSTEMI which resolved within a day. Labs initially showed Hb 9.4, platelet count 219, sodium 131, BUN 41, troponin 0.015, and he initially was normotensive at 125/79, tachycardic to 107, afebrile,
respiratory rate 18 and saturating 100% on room air. Repeat hemoglobin dropped to 6.4 on the evening of 02/10, and 2 units of blood were ordered and he was upgraded to the ICU. GI was notified. Patient went to EGD on 02/11 and underwent clipping
x 2 with seemingly hemostasis. Unfortunately overnight from 02/11 - 02/12, patient developed recurrent bleeding and was upgraded back to ICU; fire regulator service now seeing the pt again for additional management/recommendations.
Chronic conditions [employer]: CAD, hypertension, alcohol use disorder, hypercholesterolemia, history of anxiety/panic attacks
Impression:
#Acute upper gastrointestinal hemorrhage with spurting duodenal ulcer s/p hemostatic spray + hemostatic clips x 2
#2V-CAD with NSTEMI in September 2024 s/p PCI LUIS into the proximal and mid LAD + OM2 on prasugrel + ASA as an outpatient (on prasugrel as it is affordable for him)
#Alcohol use disorder
#Hyperlipidemia
#Hypertension
Plan:
- Large bore IV x2
- PPI 40mg IV BID
- Keep NPO now that pt going down to IR --> active contrast extravasation seen from branch of the distal GDA adjacent to endoscopy clip � coil embolization performed using several 2 and 3 mm detachable coils
- Continue to monitor Hb with serial H/H; defer to GI if pt can start clears tonight
- Transfuse to keep Hb >8g/dL (given recent NSTEMI with stents x3 placed), keep plt>50k
- Anti-emetics as needed
- He has received total of 5 units PRBC since admission
- Plan was to start ASA today, but given the worsening UGIB, ASA has been held. I will DC ASA for now - cardiology aware of this and they agree
- Case was discussed with craps dealer, Dr. Mckeon, and GI, Dr. Kidd
- For now, hold antiplatelets/anticoagulants
- Pain control
- If Hb becomes unstable or if he develops HDN instability, worsening tachycardia, worsening abd pain or worsening melena, rectal bleeding or hematemesis, then contact both GI and IR, and ay need repeat CTA abd/pelvis in that case. Next service to
contact would be general surgery vs colorectal surgery
- Keep MAP>65
- Monitor for signs of alcohol withdrawal; currently there is none
- Thiamine + folic acid
- Maintain SpO2 >90-94% using supplemental O2 if needed
- prn nebulized bronchodilators - not currently bronchospastic
- Incentive spirometer encouraged 10x per hour for at least 4 hrs a day
- Replete electrolytes with K>4, Mg>2
- Maintain euglycemia with goal BG 140-180; HbA1c: 5.6 on 10/21/2024
- DVT ppx: SCDs for now
Continue ICU level to care for this critically ill patient.
Critical care statement: A total of 43 minutes of critical care time was provided for this patient today. This includes management of unstable vital signs, evaluation of the patient at bedside, reviewing the patient�s pertinent medical records
including radiographs, microbiology, laboratory evaluations, and��discussion with primary team, consultants, pharmacy, nutrition, physical therapy, case management, charge nurse, critical care nursing, and respiratory therapy.
Subjective Dataa
Subjective Data
Date of Service:
Date of Service: February 12, 2025
Chief Complaint: Lead Atg Developer Follow Up
Subjective:
Pt had worsening weakness overnight, and had acute drop in Hb. He developed melena overnight with 6 BM reported. CTA abd/pelvis showed active bleed in duodenum. Going down to IR now. He has abdominal pain and mainly wants to drink ice water.
Review of Systems
General: Other (Negative unless mentioned above)
Objective Data
Data Reviewed
Vital Signs / I&O / Oxygen:
Vital Signs
Temp Pulse Resp BP Pulse Ox
98.1 F 104 21 127/79 100
02/12/25 09:00 02/12/25 09:00 02/12/25 09:00 02/12/25 09:00 02/12/25 09:00
Intake and Output
02/11/25 02/12/25 02/13/25
06:59 06:59 06:59
Intake Total 1979 / 1979 1020 / 1020 750 / 750
Output Total 825 / 825 1175 / 1175 200 / 200
Balance 1155 / 1155 -155 / -155 550 / 550
SaO2 100
Physical Exam
General: Respiratory Distress (negative), Pain (Periumbilical abdominal discomfort), Chills (negative) and Sweats (negative)
HEENT: Normocephalic and Anicteric
Cardiovascular: S1-S2, Peripheral Edema (negative) and Other (Tachycardic)
Respiratory: Wheeze (negative), Crackles (negative), Rhonchi (negative) and Non-Labored Respirations
GI: Soft, Non Distended, Tender (Periumbilical/epigastric region is tender to palpation) and Normal Bowel Sounds
Neurology: Awake, Alert, Oriented and Tremors (negative)
Skin: Warm, Dry, Cyanosis (negative) and Jaundice (negative)
Labs/Micro/Reports
Lab Data
02/12/25 03:48
--- NOTE | 2025-02-12 08:33 | PTCARENOTE ---
returned from CT scan. vital signs stable, starting second unit of blood.
--- NOTE | 2025-02-12 09:16 | PTCARENOTE ---
took patient to IR
--- NOTE | 2025-02-12 11:16 | W.PN.UPDATE ---
Update Note
Progress Note Update
Procedure: Celiac and GDA arteriograms
- Arteriograms showed active contrast extravasation from a branch of the distal GDA adjacent to endoscopy clip
- Subsequent coil embolization performed using 2 and 3 mm detachable coils.
- Final control arteriograms negative for further bleeding
- Pt heart rate and bp improved following embolization
- R groin sheath removed and hemostasis with manual compression. Pt has atherosclerotic disease; closure device not used.
--- NOTE | 2025-02-12 11:42 | W.PN.CD ---
Addendum entered and electronically signed by Amauri Fitzgerald MD 02/14/25 14:49:
Dr. Grijalva noted to me that SAPT following DAPT focuses on DAPT vs SAPT after short DAPT and not Brilinta vs ASA after DAPT. So we believe ASA will have less bleeding than Brilinta or any D4L17-S and for that reason when safe ASA will be chosen.
Addendum entered and electronically signed by Amauri Fitzgerald MD 02/12/25 16:49:
I saw and evaluated the patient, and I provided the substantive portion of the medical decision making.
I reviewed and agree with the note by KARLA Ascencio and it accurately reflects our care.
I personally performed the medical decision making of the this encounter and my assessment and plan is below:
64 yo man s/p ACS 10/21/2024 and stent 10/22/2024. Now with severe GI bleed, 5 U PRBC so far. Had embolization to control bleeding today.
When safe we will add a SINGLE antiplatelet agent, perhaps Brilinta (see the most recent ACS Guidelines).
Low threshold for PRBC transfusion as patient was actively bleeding today.
Original Note:
Today's Communication / Plan
-
-continue management of bleeding/anemia (currently s/p procedure- monitor hgb closely and transfuse as indicated). With bleeding/anemia, has to remain off antiplatelets for now, with plan to resume when safe, but may consider monotherapy when this
occurs. Follow BP and HR.
Impression / Plan
-
Acute anemia/GIB: severe
-This diagnosis is a threat to life.
-S/p 3 units PRBCs this hospitalization so far
-I reviewed GI procedure report and patient is s/p endoscopy 02/11/25: Spurting duodenal ulcer with spurting hemorrhage (Brent Class Ia). Hemostatic spray applied. Treatment not successful. Clips were placed.
-early this AM, blood stools noted and hgb 6.1. PRBC's ordered and administered. F/u hgb is pending. Patient went to IR and had embolization of an actively bleeding branch of the distal gastroduodenal artery.
-have to continue to hold prasugrel and aspirin for now with severe bleeding issues as described in detail. Resume antiplatelet once safe from a hemostasis standpoint; Will likely switch to Plavix vs ASA monotherapy.
CAD with hx NSTEMI and stenting:
-stable without CP, EKG stable
-Cardiac cath 10/22/24: PCI of the mid LAD, proximal LAD, and OM2
-Holding antiplatelet agents as above while GI bleeding is sorted out
HTN:
-BP's low at times, currently stable
-hold ACEI for now and monitor
HLD:
-statin
Subjective:
Denies any CP or SOB
I discussed this case with Dr. Bowie
Data:
Cardiac cath 10/22/24: PCI of the mid LAD, proximal LAD, and OM2
Cardiac cath 10/21/24: LM: There is an eccentric 20-30% distal vessel stenosis. LAD: Large vessel giving rise to a large D1 and moderate caliber D2. There is a 50% calcified proximal stenosis and a long up to 70% calcified stenosis in the mid vessel
ending just at the D2 to bifurcation. LCx: Moderate caliber vessel giving rise to moderate caliber OM1 and moderate caliber OM2. There is an long up to 80% stenosis spanning from the mid circumflex just before the OM 2 into the OM2 itself. RCA: Very
large vessel giving rise to a large RPDA and two large RPL branches. There is mild diffuse disease.
Echo 10/22/24: Normal biventricular size and systolic function without regional wall motion abnormality. LV ejection fraction is 55-60% by Lugo's method of discs. Normal diastolic function. Mild aortic regurgitation. Possible small PFO noted on
color flow Doppler.
Physical Exam
Vital Signs/Labs
Vital Signs
Temp Pulse Resp BP Pulse Ox
98.1 F 110 22 105/69 99
02/12/25 11:38 02/12/25 11:38 02/12/25 11:38 02/12/25 11:38 02/12/25 11:38
02/11/25 02/12/25 02/13/25
06:59 06:59 06:59
Actual Weight 83.1 kg 82.9 kg
02/12/25 03:48
PT 14.1 Sec (11.4-14.6) 02/10/25 10:15
INR 1.06 02/10/25 10:15
APTT 25.1 Sec (23.4-35.0) 02/10/25 10:15
Magnesium 1.9 mg/dl (1.6-2.3) 02/12/25 03:48
LAB Results
02/10/25
10:15
Troponin I 0.015
Physical Exam
Constitutional: No acute distress
EENT: Anicteric
Cardiovascular: Rhythm & rate is regular (sinus tachycardia)
Respiratory: Respiratory effort normal and Lungs clear to auscul.
Neuro/Psych: AO x 3
Data Reviewed
-
Date of Service: February 12, 2025
EKG: Other (Tele: Sinus tachycardia)
Labs: Labs Reviewed by me
--- NOTE | 2025-02-12 12:00 | PTCARENOTE ---
received patient back from IR. 4 coils placed into distal branch of GDA accessed by right femoral artery. Patient had slight vagal reaction after, was given fluids. bandaid placed on to right groin, patient to keep leg straight for 5 hours.
--- NOTE | 2025-02-12 13:59 | W.PN.GI.CBS2 ---
Today's Communication / Plan
-
+CTA s/p IR embolization. If hgb stable/hemodynamically stable throughout the day, okay to advance to clear liquids tonight
Assessment / Plan
-
64 y.o. male with CAD and recent NSTEMI on DAPT admitted with UGIB 2/2 duodenal ulcer.
UGIB 2/2 Duodenal ulcer
-EGD 02/11 with spurting DU (gael Class Ia), treated with epinephrine and 2 hemostatic clips without adequate hemostasis. Hemospray was then deployed, no bleeding at the end of procedure
-hemodynamically unstable with active GI Bleeding in AM of 02/12, CTA positive with active extravasation in the duodenal bulb
-s/p IR coil embolization of distal branch of GDA on 02/12
-f/u repeat hgb, if stable and remains hemodynamically stable, can advance to clears with dinner
-ideally, would only resume ASA monotherapy
-Discussed decreasing etoh use
-c/w PPI gtt x 72 hours, then BID x 8 weeks, then once daily
-Needs outpatient colonoscopy-- high risk with family history of CRC in father, no prior colonoscopy
Discussed above at length with patient and sister at bedside
Subjective
Subjective
Date of Service: February 12, 2025
Patient is s/p EGD yesterday with actively bleeding DU in the duodenal bulb, unable to achieve hemostasis with epinephrine and 2x hemostatic clips, so hemospray was applied. Following the procedure, patient remained stable up until around 3 or 4 AM
when he had large volume hematochezia with associated hemodynamic instability, hemoglobin was 6.1. He subsequently went for CTA which was positive with active contrast extravasation from a branch of the distal GDA adjacent to endoscopy clip, then
taken to IR where he had successful coil embolization. Post-procedure Hgb pending.
Objective
Data Reviewed
Laboratory Data:
Laboratory Results
02/12/25 21:33
02/12/25 03:48
Laboratory Results
PT 14.1 Sec (11.4-14.6) 02/10/25 10:15
INR 1.06 02/10/25 10:15
APTT 25.1 Sec (23.4-35.0) 02/10/25 10:15
Phosphorus 2.9 mg/dl (2.5-4.5) 02/12/25 03:48
Magnesium 1.9 mg/dl (1.6-2.3) 02/12/25 03:48
Total Bilirubin 0.5 mg/dl (0.2-1.3) 02/11/25 04:10
AST 18 U/L (17-59) 02/11/25 04:10
ALT 14 U/L (0-50) 02/11/25 04:10
Alkaline Phosphatase 36 U/L (38-126) L 02/11/25 04:10
Vital Signs and I&O:
Vital Signs
Temp Pulse Resp BP Pulse Ox
98 F 114 17 112/75 99
02/12/25 12:12 02/12/25 13:45 02/12/25 13:45 02/12/25 13:45 02/12/25 13:30
I&O
02/11/25 02/12/25 02/13/25
06:59 06:59 06:59
Intake Total 1979 / 1979 1020 / 1020 1750 / 1750
Output Total 825 / 825 1175 / 1175 400 / 400
Balance 1155 / 1155 -155 / -155 1350 / 1350
Physical Exam
Physical Exam
HEENT: Other (conjunctival pallor; appears pale )
GI: Soft, Non Distended, Non Tender and Normal Bowel Sounds
[2025-02-12 14:35] LABS: Hematocrit 24.1 % (39.0-52.0); Hemoglobin 8.4 g/dL (13.0-18.0)
--- NOTE | 2025-02-12 14:55 | CM ---
Hematochezia, Large amount of gelatinous maroon/burgundy stools x6. HH this morning 6.1--> one unit PRBC ordered originally then ordered second with ongoing bleeding. S/P IR embolization. Discharge POC: TBD.
--- NOTE | 2025-02-12 15:26 | W.PN.HOSP.TC ---
Today's Communication/Plan
-
NPO, CLD this evening
HgB this evening
monitor hemodynamics
Assessment / Plan
Assessment / Plan
Physical Exam
General: Well Developed, Well Nourished and No Apparent Distress
HEENT: NormoCephalic, Moist mucous membranes and Atraumatic
Respiratory: Clear
Cardiac: S1/S2 and Regular Rhythm; No Murmur or Rub
GI: Soft, Non Tender, Non Distended and Normal Bowel Sounds; No Organomegaly
Rectal: Deferred by Provider
Musculoskeletal: No Clubbing, No Cyanosis and No Edema
Skin: No Rash
Neuro: Nonfocal/grossly intact
# Upper GI bleeding secondary to aspirin/prasugrel
# Acute blood loss anemia
-Dark and bloody stools
-02/11 EGD - spurting duodenal ulcer with spurting hemorrhage. Hemostatic spray applied. Treatment not successful. Clips were placed.
-Worsened anemia, brief requirement of vasopressors
-CT angio positive for active GI bleed at duodenal bulb
-IR consulted - 02/12 - Successful embolization of an actively bleeding branch of the distal gastroduodenal artery
- NPO, CLD this evening
- Protonix 40 twice daily
-Hold aspirin/prasugrel; resume once cleared by GI; most likely will switch to ASA, Plavix
-CBC this evening, then tomorrow AM
#CAD
# Recent NSTEMI status post PCI x 2 of LAD and OM 2 on 10/22
- Continue statin
- Hold aspirin/prasugrel for now
- Continue metoprolol
Essential hypertension
-Hold lisinopril for now
Alcohol use disorder
- Alcohol withdrawal protocol
- No signs of withdrawal currently
Hypercholesteremia
Full code
DVT prophylaxis SCDs
Total Critical Care Time 50 minutes. I was immediately available to the patient and staff. I personally examined, reviewed labs, diagnostic images/reports, interpretations, treatment plans, discussed patient care with other providers and family
or caregivers (if patient is unable to make decisions), entered orders as appropriate and documented the medical record.
Anticipated Discharge: > 48 hours
Subjective/Interval History
-
Date of Service: February 12, 2025
worsened anemia, bleed - required vasopressors;
Objective Data
-
Labs:
Laboratory Results
02/12/25 02/12/25 02/12/25
03:48 09:33 14:20
WBC 11.1 H
Hgb 6.1 L* D Cancelled 8.4 L D
Hct 18.9 L* 24.1 L
Plt Count 130
Sodium 135
Potassium 4.4
Chloride 111 H
Carbon Dioxide 21 L
BUN 42 H
Creatinine 0.8
Glucose 154 H
Calcium 7.8 L
02/12/25 02/12/25 02/12/25
15:33 20:00 21:33
WBC
Hgb Cancelled Pending Cancelled
Hct Pending
Plt Count
Sodium
Potassium
Chloride
Carbon Dioxide
BUN
Creatinine
Glucose
Calcium
Vital Signs:
Vital Signs
Temp Pulse Resp BP Pulse Ox
98 F 114 17 112/75 99
02/12/25 15:16 02/12/25 13:45 02/12/25 13:45 02/12/25 13:45 02/12/25 13:30
I&O
02/11/25 02/12/25 02/13/25
06:59 06:59 06:59
Intake Total 1979 / 1979 1020 / 1020 1750 / 1750
Output Total 825 / 825 1175 / 1175 400 / 400
Balance 1155 / 1155 -155 / -155 1350 / 1350
Review of Systems
-
History Source: Patient
All other systems: Not reviewed unless documented
Data Reviewed
-
Diagnostic Radiology: Report Reviewed by me
CT Scan: Report Reviewed by me
Labs: Labs Reviewed by me
--- NOTE | 2025-02-12 16:00 | PTCARENOTE ---
No change in patient's assessment. patient's repeat H&H at 1400 was stable. continuing to have some dark liquid stool, blood pressure is stable.
[2025-02-12] MEDS: LR 1000 IV (17:10)
[2025-02-12 18:40] LABS: Hematocrit 23.1 % (39.0-52.0); Hemoglobin 7.9 g/dL (13.0-18.0)
--- NOTE | 2025-02-12 18:42 | PTCARENOTE ---
Patient felt very dizzy just sitting up in bed. H and H due at 1999. sent now. patient is also tachycardic and states he is very anxious which he has been throughout shift.
[2025-02-12] MEDS: VALIUM INJECTION 2 MG IV (19:40)
--- NOTE | 2025-02-12 20:00 | PTCARENOTE ---
Assumed care of patient at 1900. AAOx3, flat/anxious. PRN Valium ordered and administered - see JUN. ST up to 130s w/ occasional PVCs on monitor. Patient reports dizziness @ times w/ changes in position. R groin dressing with scant old bloody
drainage - groin soft. B/L DP and PT pulses via Doppler. Abdomen soft/round. Bowel sounds hyperactive. No complaints of abdominal pain or nausea. LR infusing as ordered - see JUN.
[2025-02-12 21:19] LABS: Hematocrit 19.8 % (39.0-52.0); Hemoglobin 6.4 g/dL (13.0-18.0); Mean Corp Hgb Conc. 32.3 g/dL (33.0-37.0); Mean Corpuscular Volume 93.8 fL (80.0-94.0); Red Cell Dist. Width 15.1 % (11.5-14.5)
[2025-02-12 21:23] LABS: Platelet Count 92 10^3/uL (130-400)
--- NOTE | 2025-02-12 21:31 | W.PN.UPDATE ---
Update Note
Progress Note Update
2114 Hgb drop to 6.4 from 7.9. SBP 130-140s, no recent blood bowel movements, no acute pain or changes in vital signs. Dr. Knight, wood car builder made aware of hgb drop. Agreed with transfusing 2 u PRBCs and give also 2 u FFP, check
PTT/PT/INR in addition. Repeat labs trend hgb.
--- NOTE | 2025-02-12 21:45 | PTCARENOTE ---
Patient's repeat Hgb 6.4 - BALLOON DIPPER notified. Patient w/ no new complaints. 2 units of PRBCs and 2 units of FFP ordered.
[2025-02-12 21:55] LABS: INR 1.45; PT 18.2 Sec (11.4-14.6)
[2025-02-12 21:56] LABS: APTT 22.3 Sec (23.4-35.0)
[2025-02-13] VITALS (45 sets, daily range): BP systolic 128–185; BP diastolic 63–89; BMI 26.5
[2025-02-13] MEDS: VALIUM INJECTION 5 MG IV (00:59)
--- NOTE | 2025-02-13 01:00 | PTCARENOTE ---
Systems reviewed - assessment unchanged. 1 unit of PRBCs and 1 unit of FFP transfused w/ no event.
--- NOTE | 2025-02-13 04:00 | PTCARENOTE ---
Patient w/ two episodes of loose/liquid maroon BMs. First episode large, second episode small to moderate. [employer] notified. 2nd unit of FFP transfused w/ no event. 2 unit of PRBCs currently infusing. Patient assessment otherwise unchanged.
[2025-02-13 07:04] LABS: Blood Urea Nitrogen 53 mg/dl (9-20); Calcium 7.1 mg/dl (8.4-10.2); Carbon Dioxide 20 mmol/L (22-30); Chloride 105 mmol/L (98-107); Estimated Creatinine Clearance 73 ml/min; Glucose 157 mg/dl (70-99); Magnesium 1.6 mg/dl (1.6-2.3); Potassium 4.5 mmol/L (3.5-5.1); Sodium 127 mmol/L (135-145); eGFR > 60.00
--- NOTE | 2025-02-13 08:07 | W.PN.INTV ---
Today's Communication / Plan
Recommendations
Stat CTA abd/pelvis given unstable Hb
General surgery consult
Hold off on additional IVF as he may have component of dilutional anemia, trisha as he has been drinking lots of water
s/p IR for embolization of GDA yesterday
PPI
Large bore IV x2
Keep NPO for now
Continue serial CBC with goal Hb >8 g/dL and platelets >50k
Hold antiplatelets/anticoagulants for now
GI + cardiology on board
Trend Na
Continue ICU level of care
Assessment
-
Assessment: 64-year-old male with a past medical history of CAD with history of NSTEMI s/p PCI LUIS to mid LAD, proximal LAD and OM 2, possible small PFO seen on echo in October 2024, hypertension, hyperlipidemia, history of panic attacks and alcohol
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 He initially thought that it was due to the medications that he is taking since his WA + stents placed few months ago. He has been having dark stool as well. He apparently had an
episode of mild bleeding 1 month after his NSTEMI which resolved within a day. Labs initially showed Hb 9.4, platelet count 219, sodium 131, BUN 41, troponin 0.015, and he initially was normotensive at 125/79, tachycardic to 107, afebrile,
respiratory rate 18 and saturating 100% on room air. Repeat hemoglobin dropped to 6.4 on the evening of 02/10, and 2 units of blood were ordered and he was upgraded to the ICU. GI was notified. Patient went to EGD on 02/11 and underwent clipping
x 2 with seemingly hemostasis. Unfortunately overnight from 02/11 - 02/12, patient developed recurrent bleeding and was upgraded back to ICU; communication lecturer service now seeing the pt again for additional management/recommendations.
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
Impression:
#Acute upper gastrointestinal hemorrhage with spurting duodenal ulcer s/p hemostatic spray + hemostatic clips x 2 (02/11) + IR embolization with multiple coils to distal GDA (02/12)
#2V-CAD with NSTEMI in September 2024 s/p PCI LUIS into the proximal and mid LAD + OM2 on prasugrel + ASA as an outpatient (on prasugrel as it is affordable for him)
#Alcohol use disorder
#Hyperlipidemia
#Hypertension
Plan:
- Large bore IV x2
- PPI 40mg IV BID
- Underwent EGD on 02/11 and found to have red blood in stomach and spurting duodenal ulcer with spurting hemorrhage - hemostatic spray without hemostasis and 2 hemostatic clips successfully placed
- Became symptomatic on the evening of 02/11 and underwent CTA abdomen/pelvis showing active GI bleed in the duodenal bulb near the hemostatic clips - went down to IR and active contrast extravasation seen from branch of the distal GDA adjacent to
endoscopy clip � coil embolization performed using several 2 and 3 mm detachable coils
- Has been transfused multiple blood products overnight, but still with acute unstable anemia, suspected to be from his duodenal ulcer
- GI recommended surgery consult --> I spoke with Dr. Espinal, and an additional 2 units PRBC transfusion and repeat CTA abd/pelvis recommended - these were ordered by me
- Make him NPO again as he may end up going to OR today
- Continue to monitor Hb with serial H/H
- Transfuse to keep Hb >8g/dL (given recent NSTEMI with stents x3 placed), keep plt>50k - -> may need unit of platelets +/- dDAVP to reverse the effect of ASA, but we will do this only if necessary based on trend of hemoglobin today (02/13) in light
of his recent coronary stents placed in September
- Anti-emetics as needed
- He has received total of 7 units PRBC since admission, and 2 units FFP
- Plan was to start ASA on 02/12, but given the worsening UGIB, ASA has been held. ASA DC'd for now - cardiology aware of this and they agree
- Case has been discussed with sugar grinder, Dr. Mckeon, and GI, Dr. Kidd
- For now, hold antiplatelets/anticoagulants
- Pain control
- Keep MAP>65
- Monitor for signs of alcohol withdrawal; currently there is none
- Continue thiamine + folic acid
- Maintain SpO2 >90-94% using supplemental O2 if needed
- prn nebulized bronchodilators - not currently bronchospastic
- Incentive spirometer encouraged 10x per hour for at least 4 hrs a day
- Replete electrolytes with K>4, Mg>2
- Maintain euglycemia with goal BG 140-180; HbA1c: 5.6 on 10/21/2024
- DVT ppx: SCDs for now
Continue ICU level to care for this critically ill patient.
Critical care statement: A total of 48 minutes of critical care time was provided for this patient today. This includes management of unstable vital signs, evaluation of the patient at bedside, reviewing the patient�s pertinent medical records
including radiographs, microbiology, laboratory evaluations, and��discussion with primary team, consultants, pharmacy, nutrition, physical therapy, case management, charge nurse, critical care nursing, and respiratory therapy.
Data:
CTA abdomen/pelvis w/wo IV contrast 02/12/2025: CTA evidence for active gastrointestinal bleeding in the duodenal bulb near the hemostatic clips. Findings are secondary to bleeding from a duodenal ulcer in correlation with the recent endoscopy
report.
Subjective Dataa
Subjective Data
Date of Service:
Date of Service: February 13, 2025
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
Subjective:
Patient seen and evaluated his morning. Hb this morning was 5.7 from 6.4 last night despite getting 2 units PRBC transfused overnight.� Also transfused 2 units FFP overnight.
Having melena, about 200 cc this morning. He does not feel dizzy. HR 115. I spoke to the patient's 2 sisters, Rani and Paz, and answered both their questions.
Review of Systems
General: Other (Negative unless mentioned above)
Objective Data
Data Reviewed
Vital Signs / I&O / Oxygen:
Vital Signs
Temp Pulse Resp BP Pulse Ox
97.8 F 111 17 153/82 100
02/13/25 08:02 02/13/25 09:00 02/13/25 09:00 02/13/25 09:00 02/13/25 09:53
Intake and Output
02/12/25 02/13/25 02/14/25
06:59 06:59 06:59
Intake Total 1020 / 1020 5614 / 5974 1200 / 1200
Output Total 1175 / 1175 1050 / 1200 350 / 350
Balance -155 / -155 4564 / 4774 850 / 850
SaO2 100
Physical Exam
General: Respiratory Distress (negative), Pain (Periumbilical abdominal discomfort), Chills (negative) and Sweats (negative)
HEENT: Normocephalic and Anicteric
Cardiovascular: S1-S2, Peripheral Edema (negative) and Other (Tachycardic)
Respiratory: Wheeze (negative), Crackles (negative), Rhonchi (negative) and Non-Labored Respirations
GI: Soft, Non Distended, Tender (Periumbilical/epigastric region is tender to palpation) and Normal Bowel Sounds
Neurology: Awake, Alert, Oriented and Tremors (negative)
Skin: Warm, Dry, Cyanosis (negative) and Jaundice (negative)
Labs/Micro/Reports
Lab Data
02/13/25 08:28
02/13/25 06:39
Laboratory Results
02/12/25 02/13/25 02/13/25
21:39 06:39 08:28
PT 18.2 H Cancelled 16.9 H
INR 1.45 Cancelled 1.35
APTT 22.3 L Cancelled 24.1
--- NOTE | 2025-02-13 08:07 | PTCARENOTE ---
Pt rec'd from night RNs in report, lab called to inform RN that coags clotted and need to be redrawn. Pt difficult stick-phleb paged to draw. Pt states he feels better this am. Dizziness has improved from prior. Pt using urinal independently. Pt
reqesting more ice and water, stated he is 'living on ice and water.' Lab results from this am reviewed, Na 127. Orders reviewed. Call tran in reach. Safe environment ongoing.
[2025-02-13] MEDS: LR 1000 IV (08:25)
[2025-02-13] MEDS: VALIUM INJECTION 2 MG IV ×2 (08:30→21:19)
[2025-02-13] MEDS: FOLVITE 1 MG PO (08:31)
[2025-02-13] MEDS: PROTONIX IV 40 MG IV ×2 (08:31→21:19)
[2025-02-13] MEDS: THIAMINE INJECTION 100 MG IV (08:31)
[2025-02-13] MEDS: NSS (PRESERVATIVE FREE) 10 ML IV ×2 (08:31→21:19)
[2025-02-13 08:47] LABS: APTT 24.1 Sec (23.4-35.0); INR 1.35; PT 16.9 Sec (11.4-14.6)
--- NOTE | 2025-02-13 09:19 | W.PN.CD ---
Today's Communication / Plan
-
-Received an additional 2 units PRBCs overnight for hemoglobin drop from 7.9 to 6.4.
-Holding prasugrel and aspirin for now with severe bleeding issues as described in detail.
-Resume antiplatelet once safe from a hemostasis standpoint; after discussion with Interventional Cardiology, will likely place on aspirin 81 mg daily monotherapy to decrease risk of rebleed.
Impression / Plan
-
Acute anemia/GIB: severe
-This diagnosis is a threat to life.
-Secondary to bleeding duodenal ulcer.
-Endoscopy 02/11/25: Spurting duodenal ulcer with spurting hemorrhage (Brent Class Ia). Hemostatic spray applied. Treatment not successful. Clips were placed.
-Patient went to IR 02/12/2025: Embolization of an actively bleeding branch of the distal gastroduodenal artery.
-Received an additional 2 units PRBCs overnight for hemoglobin drop from 7.9 to 6.4.
-Holding prasugrel and aspirin for now with severe bleeding issues as described in detail.
-Resume antiplatelet once safe from a hemostasis standpoint; after discussion with Interventional Cardiology, will likely place on aspirin 81 mg daily monotherapy to decrease risk of rebleed.
-Further recommendations as per GI.
CAD with hx NSTEMI and stenting:
-Remains stable without CP, EKG stable.
-Cardiac cath 10/22/24: LUIS x 3 (proximal LAD, mid LAD, and OM2).
-Resume antiplatelet once safe from a hemostasis standpoint; after discussion with Interventional Cardiology, will likely place on aspirin 81 mg daily monotherapy to decrease risk of rebleed.
HTN:
-Blood pressure is stable
-Continue to hold beta-lonny and ALEXUS inhibitor for now; permissive tachycardia given acute GI bleed with severe anemia.
HLD:
-Will resume statin once fully tolerating PO intake.
Subjective:
Denies any CP or SOB
I discussed this case with Dr. Bowie
Data:
Cardiac cath 10/22/24: PCI of the mid LAD, proximal LAD, and OM2
Cardiac cath 10/21/24: LM: There is an eccentric 20-30% distal vessel stenosis. LAD: Large vessel giving rise to a large D1 and moderate caliber D2. There is a 50% calcified proximal stenosis and a long up to 70% calcified stenosis in the mid vessel
ending just at the D2 to bifurcation. LCx: Moderate caliber vessel giving rise to moderate caliber OM1 and moderate caliber OM2. There is an long up to 80% stenosis spanning from the mid circumflex just before the OM 2 into the OM2 itself. RCA: Very
large vessel giving rise to a large RPDA and two large RPL branches. There is mild diffuse disease.
Echo 10/22/24: Normal biventricular size and systolic function without regional wall motion abnormality. LV ejection fraction is 55-60% by Lugo's method of discs. Normal diastolic function. Mild aortic regurgitation. Possible small PFO noted on
color flow Doppler.
Physical Exam
Vital Signs/Labs
Vital Signs
Temp Pulse Resp BP Pulse Ox
97.8 F 106 16 157/69 98
02/13/25 08:02 02/13/25 08:00 02/13/25 08:00 02/13/25 08:00 02/13/25 07:00
02/12/25 02/13/25 02/14/25
06:59 06:59 06:59
Actual Weight 82.9 kg 86 kg
02/13/25 06:39
PT 16.9 Sec (11.4-14.6) H 02/13/25 08:28
INR 1.35 02/13/25 08:28
APTT 24.1 Sec (23.4-35.0) 02/13/25 08:28
Magnesium 1.6 mg/dl (1.6-2.3) 02/13/25 06:39
LAB Results
02/10/25
10:15
Troponin I 0.015
Physical Exam
Constitutional: No acute distress and Comfortable
EENT: Anicteric
Cardiovascular: Pedal edema is absent and Other (Regular, mildly tachycardic)
Respiratory: Respiratory effort normal and Lungs clear to auscul.
GI: Soft and Non tender
Neuro/Psych: AO x 3
Other: Skin (Warm, dry, intact)
Data Reviewed
-
Date of Service: February 13, 2025
EKG: Tracing Personally Visualized and interpreted (Sinus rhythm/sinus tachycardia)
Medical Tests (PFT, Pathology etc): Discussed with Nurse, Discussed with Patient and Discussed with Family (Sister at bedside)
Labs: Labs Reviewed by me
[2025-02-13 09:25] LABS: Hematocrit 16.2 % (39.0-52.0); Hemoglobin 5.7 g/dL (13.0-18.0); Mean Corp Hgb Conc. 35.2 g/dL (33.0-37.0); Mean Corpuscular Volume 87.1 fL (80.0-94.0); Platelet Count 115 10^3/uL (130-400); Red Cell Dist. Width 14.0 % (11.5-14.5)
--- NOTE | 2025-02-13 09:26 | PTCARENOTE ---
Pt stated he felt like he had a small amount of leakage with passing of flatus, small amount of burgundy smear underneath him, pericare provided, pad changed. Pt remains hemodynamically stable, no dizziness/nausea/abdominal pain at this time.
--- NOTE | 2025-02-13 11:00 | PTCARENOTE ---
Pt had small amount burgundy/black liquid stool in bedpan, MDs notified, plan discussed with Dr. Justice at bedside. TT with GI, chiropractic teacher and attending, plan discussed. Will check H+H Q6, make NPO and consult surgery. Pt updated.
--- NOTE | 2025-02-13 11:25 | CON.GS ---
Addendum entered and electronically signed by Barry Espinal MD 02/13/25 17:18:
Patient seen and examined independently of surgical nurse practitioner. Agree with documented consultation with additions noted here.
HPI: 64-year-old male with recent history of GA -LUIS placement in October on dual antiplatelet therapy with active alcohol use initially admitted with black/tarry stools found to have an upper GI bleed. He underwent EGD identifying a bleeding duodenal
ulcer in the region of the duodenal bulb which was injected with epinephrine and 2 clips placed. He had subsequent rebleed confirmed on CT angio prompting IR Angiogram with active extravasation from a branch of the distal GDA adjacent to
previously placed endoscopy clip. Coil embolization performed. He continues with melanotic stools overnight prompting surgical consultation this a.m.
He has received a total of 7 units of blood and 2 units of FFP prior to this a.m. and an additional 2 units of blood were transfused today.
At the current time he is resting comfortably in the ICU bed. He denies abdominal pain he denies further significant melena today. No nausea, no vomiting, he is thirsty.
AFVSS
NAD AAO x 3
ABD: Soft, nondistended, no tenderness on palpation
CT angio with clips in place in the duodenal bulb no active extravasation.
Assessment/plan: 64-year-old male admitted with bleeding duodenal ulcer now status post EGD with epinephrine injection, spray and clipping. Subsequent IR embolization of GDA branch. Negative CT angio today.
Agree with current GI recommendations that if patient was to exhibit rebleeding the next step would be repeat endoscopic evaluation and consideration of additional modalities such as ovesco clipping.
Otherwise continue to maintain hemoglobin greater than 8 and platelet count >50 with transfusions as necessary
Would maintain n.p.o. except sips of clears and ice chips until there are no signs of GI bleeding for 24 hours and stable hemoglobin
Antiplatelet agent should continue to be held given severity of bleeding and transfusions that were required
Original Note:
Consultation
-
Date/Time Consultation Performed: 02/13/25 1120
Medical History
-
Chief Complaint: tarry stools
History of Present Illness:
64 yo daily drinker with a h/o CAD with recent GA with BLAST FURNACE BLOWER/Stent placement in October and subsequently maintained on DAPT who presented with black/tarry stools. He is PPD #2 EGD with hemorrhage of duodenal ulcer noted. A spurting area was injected,
sprayed and 2 clips were placed with resolution of bleeding noted during the procedure. His hemoglobin continued to decline and he was taken to IR the following day after CT imaging demonstrated bleeding around the hemostatic clips and is now PPD #1
embolization of an actively bleeding branch of the distal gastroduodenal artery. He continues to pass tarry stools and blood counts have drifted down again overnight. He has received a total of 7 units of bloods and 2 units of FFP and is to be
transfused again shortly given continue anemia. He denies pain. He notes occasional mild nausea.
Past Medical History
Past Medical History: CAD and GA
Past Surgical History: Cardiac (LUIS) and Orthopedic (arthroscopy of knee)
Social History
Alcohol: Daily (4 lite beers)
Family History
Family History: Reviewed & Not Pertinent
Allergies / Home Medications
Allergy/AdvReac Type Severity Reaction Status Date / Time
No Known Allergies Allergy Verified 02/10/25 09:38
�Medication �Instructions �Recorded �Confirmed �Type
glucosamine sulf dipot 1 cap PO DAILY Supplement 10/21/24 02/11/25 History
chlr,msm,chond 550 mg-C 30 mg-falguni
1 mg capsule (Glucosamine
Chondroitin)
lisinopril 10 mg tablet 10 mg PO DAILY Blood Pressure 10/21/24 02/11/25 History
psyllium 1 packet PO DAILY Gastrointestinal 10/21/24 02/11/25 History
Issue
therapeutic multivitamin 1 tab PO DAILY Supplement 10/21/24 02/11/25 History
turmeric 400 mg capsule 400 mg PO DAILY Supplement 10/21/24 02/11/25 History
aspirin 81 mg tablet,delayed 81 mg PO DAILY Blood Clot 02/11/25 02/11/25 History
release Prevention/Tx
atorvastatin 80 mg tablet 80 mg PO QPM High Cholesterol 02/11/25 02/11/25 History
metoprolol succinate 25 mg 25 mg PO DAILY Heart 02/11/25 02/11/25 History
tablet,extended release 24 hr Disease/Condition
prasugrel HCl 10 mg tablet 10 mg PO DAILY Blood Clot 02/11/25 02/11/25 History
Prevention/Tx
Review of Systems
-
History Source: Patient and Family
All other systems: Negative unless noted
A 10 point review of systems was completed, and was negative except as per HPI.
Physical Exam
Vital Signs
Temp Pulse Resp BP Pulse Ox
97.8 F 111 17 153/82 100
02/13/25 08:02 02/13/25 09:00 02/13/25 09:00 02/13/25 09:00 02/13/25 09:53
02/12/25 02/13/25 02/14/25
06:59 06:59 06:59
Actual Weight 82.9 kg 86 kg
Body Mass Index (BMI) 26.5
Lab Results
WBC 19.1 10^3/uL (4.8-10.8) H 02/13/25 08:28
Hgb 5.7 g/dL (13.0-18.0) L* 02/13/25 08:28
Hct 16.2 % (39.0-52.0) L* 02/13/25 08:28
Plt Count 115 10^3/uL (130-400) L D 02/13/25 08:28
Abs Immat Gran (auto) 0.1 10^3/uL (0-0.05) H 02/11/25 04:10
Neutrophils % 75.0 % (42.2-75.2) 02/11/25 04:10
Physical Exam
General: Comfortable
GI: Soft, Non Tender and Non Distended
Skin: Warm and Other (pale/clammy)
Neuro: Awake, Alert and AO x 3
Psych: Calm
Data Reviewed
-
Radiology: Image Personally Visualized and interpreted, Report Reviewed by me, Discussed with Physician, Discussed with Patient and Discussed with Family
CT Scan: Image Personally Visualized and interpreted, Report Reviewed by me, Discussed with Physician, Discussed with Patient and Discussed with Family
Labs: Labs Reviewed by me, Discussed with Physician, Discussed with Patient and Discussed with Family
Old Records: Reviewed
Assessment / Plan
-
64 yo daily drinker with a h/o CAD with recent GA with BLAST FURNACE BLOWER/Stent placement in October and subsequently maintained on DAPT (now on hold) who presented with GIB with noted black/tarry stools.
PPD #2 EGD with hemorrhage of duodenal ulcer noted. A spurting area was injected, sprayed and 2 clips were placed with resolution of bleeding noted during the procedure. His hemoglobin continued to decline and he was taken to IR the following day
after CT imaging demonstrated bleeding around the hemostatic clips and is now PPD #1 embolization of an actively bleeding branch of the distal gastroduodenal artery.
He continues to pass tarry stools and blood counts have drifted down again overnight. He has received a total of 7 units of bloods and 2 units of FFP and is to be transfused again shortly given continued acute blood loss anemia.
Plan:
Transfuse as per mechanic general operational test, given use of DAPT, would consider giving platelets as well
Check CTA to evaluate for ongoing bleeding
May need repeat EGD vs operative intervention pending CTA findings, will d/w GI team
[2025-02-13] MEDS: TRANDATE 5 MG IV (11:34)
--- NOTE | 2025-02-13 11:41 | PTCARENOTE ---
1st unit of blood obtained and infusing at this time, CTA ordered Stat.
--- NOTE | 2025-02-13 11:56 | PTCARENOTE ---
Pt with another small black/burgundy liquid BM. Pt to go down for CTA at this time.
--- NOTE | 2025-02-13 12:02 | W.PN.GI.CBS2 ---
Today's Communication / Plan
-
Surgical evaluation. Repeat CTA.
Assessment / Plan
-
64 y.o. male with CAD and recent NSTEMI on DAPT admitted with UGIB 2/2 duodenal ulcer.
UGIB 2/2 Duodenal ulcer
-EGD 02/11 with spurting DU (gael Class Ia), treated with epinephrine and 2 hemostatic clips without adequate hemostasis. Hemospray was then deployed, no bleeding at the end of procedure
-hemodynamically unstable with active GI Bleeding in AM of 02/12, CTA positive with active extravasation in the duodenal bulb
-s/p IR coil embolization of distal branch of GDA on 02/12
-he continues to require blood transfusions-has received a total of 7 units prbc and 2 units ffp
-continue PPI gtt
-recommend repeat CTA and surgical evaluation
-will discuss case with Dr. Jaquez for potential repeat EGD and attempt to place ovesco clip
-keep NPO
Subjective
Subjective
Date of Service: February 13, 2025
Hemoglobin dropped again overnight
8.4 --> 7.9 --> 6.4 --> 5.7. He has now gotten a total of 7 units of PRBC and 2 units of FFP. Tachycardic throughout this morning, has been passing maroon colored stool and tachycardic to the 110s. BUN increasing 42 --> 53.
Patient is very frustrated, wants 'closure' to all of this. Eager to get back to work.
Objective
Data Reviewed
Laboratory Data:
Laboratory Results
PT 16.9 Sec (11.4-14.6) H 02/13/25 08:28
INR 1.35 02/13/25 08:28
APTT 24.1 Sec (23.4-35.0) 02/13/25 08:28
Phosphorus 3.9 mg/dl (2.5-4.5) 02/13/25 06:39
Magnesium 1.6 mg/dl (1.6-2.3) 02/13/25 06:39
Total Bilirubin 0.5 mg/dl (0.2-1.3) 02/11/25 04:10
AST 18 U/L (17-59) 02/11/25 04:10
ALT 14 U/L (0-50) 02/11/25 04:10
Alkaline Phosphatase 36 U/L (38-126) L 02/11/25 04:10
Vital Signs and I&O:
Vital Signs
Temp Pulse Resp BP Pulse Ox
98.2 F 104 23 149/72 99
02/13/25 11:54 02/13/25 11:54 02/13/25 11:54 02/13/25 11:54 02/13/25 11:54
I&O
02/12/25 02/13/25 02/14/25
06:59 06:59 06:59
Intake Total 1020 / 1020 5614 / 5974 1200 / 1200
Output Total 1175 / 1175 1050 / 1200 350 / 350
Balance -155 / -155 4564 / 4774 850 / 850
Physical Exam
Physical Exam
HEENT: Other (conjunctival pallor; appears pale )
GI: Soft, Non Distended, Non Tender and Normal Bowel Sounds
--- NOTE | 2025-02-13 12:38 | PTCARENOTE ---
Pt transported to CT Scan and back to room without incident.
--- NOTE | 2025-02-13 15:28 | CM ---
UGI Bleed secondary to duodenal ulcer, Hgb 5.7, requires PRBC transfusions, surgical consult, NPO. Discharge POC: TBD.
--- NOTE | 2025-02-13 16:15 | PTCARENOTE ---
2nd unit of blood transfused, no s/s transfusion reaction. Pt has not had futher bleeding since approx noon. Pt encouraged to be cautious with PO intake (asking frequently for ice chips, water, juices, etc.) as ordered by MDs. Pt remains NPO but
ok'd for sips and chips. Next lab draw due 18:00.
--- NOTE | 2025-02-13 16:30 | W.PN.HOSP.TC ---
Today's Communication/Plan
-
monitor hgb [id number]
holding DAPT
Assessment / Plan
Assessment / Plan
Physical Exam
General: Well Developed, Well Nourished and No Apparent Distress
HEENT: NormoCephalic, Moist mucous membranes and Atraumatic
Respiratory: Clear
Cardiac: S1/S2 and Regular Rhythm; No Murmur or Rub
GI: Soft, Non Tender, Non Distended and Normal Bowel Sounds; No Organomegaly
Rectal: Deferred by Provider
Musculoskeletal: No Clubbing, No Cyanosis and No Edema
Skin: No Rash
Neuro: Nonfocal/grossly intact
# Upper GI bleeding secondary to aspirin/prasugrel
# Acute blood loss anemia
#Hemorrhagic shock, resolved
-Dark and bloody stools
-02/11 EGD - spurting duodenal ulcer with spurting hemorrhage. Hemostatic spray applied. Treatment not successful. Clips were placed.
--IR consulted - 02/12 - Successful embolization of an actively bleeding branch of the distal gastroduodenal artery
-Hgb continued to trend down 02/13 - transfused again; CTA with no active bleed; Surg consulted - NTD at this time
-Cont to monitor Hgb
- NPO
- Protonix 40 twice daily
-Hold aspirin/prasugrel; resume once cleared by GI; most likely will switch to ASA, Plavix
-CBC [id number], patient hemodynamically stable - in fact hypertensive
#CAD
# Recent NSTEMI status post PCI x 2 of LAD and OM 2 on 10/22
- Continue statin
- Hold aspirin/prasugrel for now
- Continue metoprolol
#Hyponatremia
-monitor with resuscitation
Essential hypertension
-Hold lisinopril for now
Alcohol use disorder
- Alcohol withdrawal protocol
- No signs of withdrawal currently
Hypercholesteremia
Full code
DVT prophylaxis SCDs
Total Critical Care Time 51 minutes. I was immediately available to the patient and staff. I personally examined, reviewed labs, diagnostic images/reports, interpretations, treatment plans, discussed patient care with other providers and family
or caregivers (if patient is unable to make decisions), entered orders as appropriate and documented the medical record.
Anticipated Discharge: > 48 hours
Subjective/Interval History
-
Date of Service: February 13, 2025
Hemoglobin trended down, further transfusions given
Objective Data
-
Labs:
Laboratory Results
02/13/25 02/13/25 02/13/25
06:39 08:28 14:00
WBC Cancelled 19.1 H Cancelled
Hgb Cancelled 5.7 L* Cancelled
Hct Cancelled 16.2 L* Cancelled
Plt Count Cancelled 115 L D Cancelled
PT Cancelled 16.9 H
INR Cancelled 1.35
APTT Cancelled 24.1
Sodium 127 L D Cancelled
Potassium 4.5 Cancelled
Chloride 105 Cancelled
Carbon Dioxide 20 L Cancelled
BUN 53 H Cancelled
Creatinine 1.1 Cancelled
Glucose 157 H Cancelled
Calcium 7.1 L Cancelled
Total Bilirubin Cancelled
AST Cancelled
ALT Cancelled
Alkaline Phosphatase Cancelled
02/13/25
18:00
WBC Pending
Hgb Pending
Hct Pending
Plt Count Pending
PT
INR
APTT
Sodium
Potassium
Chloride
Carbon Dioxide
BUN
Creatinine
Glucose
Calcium
Total Bilirubin
AST
ALT
Alkaline Phosphatase
Vital Signs:
Vital Signs
Temp Pulse Resp BP Pulse Ox
98.4 F 97 19 158/79 98
02/13/25 16:21 02/13/25 16:21 02/13/25 16:21 02/13/25 16:21 02/13/25 14:35
I&O
02/12/25 02/13/25 02/14/25
06:59 06:59 06:59
Intake Total 1020 / 1020 5614 / 5974 1700 / 1700
Output Total 1175 / 1175 1050 / 1200 600 / 600
Balance -155 / -155 4564 / 4774 1100 / 1100
Review of Systems
-
History Source: Patient
All other systems: Not reviewed unless documented
Data Reviewed
-
Diagnostic Radiology: Report Reviewed by me
CT Scan: Report Reviewed by me
Labs: Labs Reviewed by me
[2025-02-13 18:24] LABS: Hematocrit 21.6 % (39.0-52.0); Hemoglobin 7.7 g/dL (13.0-18.0); Mean Corp Hgb Conc. 35.6 g/dL (33.0-37.0); Mean Corpuscular Volume 82.8 fL (80.0-94.0); Red Cell Dist. Width 13.9 % (11.5-14.5)
--- NOTE | 2025-02-13 20:08 | PTCARENOTE ---
Pt received at 19:00. Initial assessment as documented. Repeat hgb = 7.7, x1 unit PRBCs ordered and transfusing. Pt denies pain/discomfort, does state stress/anxiety regarding current situation. Pt pleasant and cooperative at this time. Safe
environment maintained, call tran within reach, repositioning self.
[2025-02-14] VITALS (24 sets, daily range): BP systolic 112–157; BP diastolic 59–91; BMI 26.6
[2025-02-14 00:42] LABS: Hemoglobin 8.1 g/dL (13.0-18.0)
[2025-02-14 06:03] LABS: Hematocrit 21.6 % (39.0-52.0); Hemoglobin 7.7 g/dL (13.0-18.0); Mean Corp Hgb Conc. 35.6 g/dL (33.0-37.0); Mean Corpuscular Volume 84.7 fL (80.0-94.0); Platelet Count 74 10^3/uL (130-400); Red Cell Dist. Width 13.7 % (11.5-14.5)
[2025-02-14 06:11] LABS: Blood Urea Nitrogen 29 mg/dl (9-20); Calcium 7.5 mg/dl (8.4-10.2); Carbon Dioxide 25 mmol/L (22-30); Chloride 103 mmol/L (98-107); Estimated Creatinine Clearance 89 ml/min; Glucose 92 mg/dl (70-99); Magnesium 2.2 mg/dl (1.6-2.3); Potassium 3.7 mmol/L (3.5-5.1); Sodium 127 mmol/L (135-145); eGFR > 60.00
--- NOTE | 2025-02-14 07:18 | PTCARENOTE ---
Pt rec'd from night RN, lab called and stated T+S hemolyzed and was short, VAT RN contacted via TT for additional line and to assist with lab draw. Pt updated, warmed with hot blanket, plan discussed. Pt cooperative, but frustrated with his slow
progress. One small burgundy/brown BM over night per RN, pt continues feeling well, no symptoms, hemodynamics improved from yesterday. Pallor decreased from yesterday, cheeks are pink. Pt states he slept well. Call tran in reach, safe environment
continues.
--- NOTE | 2025-02-14 08:28 | W.PN.INTV ---
Today's Communication / Plan
Recommendations
Continue serial CBC with goal Hb >8 g/dL and platelets >50k
Hold antiplatelets/anticoagulants for now
General surgery consulted yesterday - not a surgical candidate given negative repeat CTA A/P
Hold off on additional IVF as he may have had a component of dilutional anemia, trisha as he has been drinking lots of water
s/p IR for embolization of GDA on 02/12/2025
s/p hemostatic clips on 02/11/2025 during EGD
PPI
Large bore IV x2
ADAT - if Hb remains stable today then will advance to full liquid diet
GI + cardiology on board
Trend Na
Continue ICU level of care
Assessment
-
Assessment: 64-year-old male with a past medical history of CAD with history of NSTEMI s/p PCI LUIS to mid LAD, proximal LAD and OM 2, possible small PFO seen on echo in October 2024, hypertension, hyperlipidemia, history of panic attacks and alcohol
use disorder who presents with dizziness that started 1 day [employer]. He initially thought that it was due to the medications that he is taking since his [place] + stents placed few months ago. He has been having dark stool as well. He apparently had an
episode of mild bleeding 1 month after his NSTEMI which resolved within a day. Labs initially showed Hb 9.4, platelet count 219, sodium 131, BUN 41, troponin 0.015, and he initially was normotensive at 125/79, tachycardic to 107, afebrile,
respiratory rate 18 and saturating 100% on room air. Repeat hemoglobin dropped to 6.4 on the evening of 02/10, and 2 units of blood were ordered and he was upgraded to the ICU. GI was notified. Patient went to EGD on 02/11 and underwent clipping
x 2 with seemingly hemostasis. Unfortunately overnight from 02/11 - 02/12, patient developed recurrent bleeding and was upgraded back to ICU; fighter pilot service now seeing the pt again for additional management/recommendations.
Chronic conditions [employer]: CAD, hypertension, alcohol use disorder, hypercholesterolemia, history of anxiety/panic attacks
Impression:
#Acute upper gastrointestinal hemorrhage with spurting duodenal ulcer s/p hemostatic spray + hemostatic clips x 2 (02/11) + IR embolization with multiple coils to distal GDA (02/12)
#2V-CAD with NSTEMI in September 2024 s/p PCI LUIS into the proximal and mid LAD + OM2 on prasugrel + ASA as an outpatient (on prasugrel as it is affordable for him)
#Alcohol use disorder
#Hyperlipidemia
#Hypertension
Plan:
- Large bore IV x2
- PPI 40mg IV BID
- Underwent EGD on 02/11 and found to have red blood in stomach and spurting duodenal ulcer with spurting hemorrhage - hemostatic spray without hemostasis and 2 hemostatic clips successfully placed
- Became symptomatic on the evening of 02/11 and underwent CTA abdomen/pelvis showing active GI bleed in the duodenal bulb near the hemostatic clips - went down to IR and there was active contrast extravasation seen from branch of the distal GDA
adjacent to endoscopy clip --> coil embolization performed using several 2 and 3 mm detachable coils
- Due to continued instability of his Hb on 02/13, GI recommended surgery consult --> I spoke with Dr. Espinal, and an additional 2 units PRBC transfusion was ordered/given and repeat CTA abd/pelvis performed --> there was no evidence of an active
GI bleed; hence, patient not deemed a surgical candidate
- Continue with clear liquid diet, and if Hb remains stable today and rises appropriately after 1 unit PRBC (which was ordered this morning), then I will advance his diet to full liquid diet
- Continue to monitor Hb with serial H/H
- Transfuse to keep Hb >8g/dL (given recent NSTEMI with stents x3 placed), keep plt>50k - -> may need unit of platelets +/- dDAVP to reverse the effect of ASA, but we will do this only if necessary based on trend of hemoglobin in light of his recent
coronary stents placed in September
- Anti-emetics as needed
- He has received total of 10 units PRBC since admission, with his 11th PRBC unit to be given this AM; also s/p 2 units FFP
- Plan was to start ASA on 02/12, but given the worsening UGIB, ASA has been held. ASA DC'd for now - cardiology aware of this and they agree
- Case has been discussed with management instructor, Dr. Mckeon, and GI, Dr. Kidd
- For now, hold antiplatelets/anticoagulants
- Pain control
- Keep MAP>65
- Monitor for signs of alcohol withdrawal; currently there is none
- Continue thiamine + folic acid
- Maintain SpO2 >90-94% using supplemental O2 if needed
- prn nebulized bronchodilators - not currently bronchospastic
- Incentive spirometer encouraged 10x per hour for at least 4 hrs a day
- Replete electrolytes with K>4, Mg>2
- Maintain euglycemia with goal BG 140-180; HbA1c: 5.6 on 10/21/2024
- DVT ppx: SCDs for now
Continue ICU level to care for this critically ill patient.
Critical care statement: A total of 42 minutes of critical care time was provided for this patient today. This includes management of unstable vital signs, evaluation of the patient at bedside, reviewing the patient�s pertinent medical records
including radiographs, microbiology, laboratory evaluations, and��discussion with primary team, consultants, pharmacy, nutrition, physical therapy, case management, charge nurse, critical care nursing, and respiratory therapy.
Data:
CTA abdomen/pelvis w/wo IV contrast 02/12/2025: CTA evidence for active gastrointestinal bleeding in the duodenal bulb near the hemostatic clips. Findings are secondary to bleeding from a duodenal ulcer in correlation with the recent endoscopy
report.
CTA abdomen/pelvis w/wo IV contrast 02/13/2025: No evidence for residual active GI bleed, with specific attention to the duodenal bulb; No other significant abnormality identified in the abdomen or pelvis within the limits of this exam
Subjective Dataa
Subjective Data
Date of Service:
Date of Service: February 14, 2025
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
Subjective:
Patient was seen and evaluated this morning. He appears more lively today with better skin color (appears less pale), and he feels better today than he has since he has been in the hospital.
There was a small amount of melena overnight with a hint of brown. He is getting 1 unit transfusion currently. Current heart rate is at 91 with BP 128/91 and he is saturating 100% on room air.
Review of Systems
General: Other (Negative unless mentioned above)
Objective Data
Data Reviewed
Vital Signs / I&O / Oxygen:
Vital Signs
Temp Pulse Resp BP Pulse Ox
98.4 F 84 14 119/67 99
02/14/25 10:12 02/14/25 10:12 02/14/25 10:12 02/14/25 10:12 02/14/25 10:12
Intake and Output
02/13/25 02/14/25 02/15/25
06:59 06:59 06:59
Intake Total 5614 / 5974 2430 / 2430 480 / 480
Output Total 1050 / 1200 1350 / 1350 650 / 650
Balance 4564 / 4774 1080 / 1080 -170 / -170
SaO2 99
Physical Exam
General: Respiratory Distress (negative), Comfortable, Pain (Periumbilical abdominal discomfort), Chills (negative) and Sweats (negative)
HEENT: Normocephalic and Anicteric
Cardiovascular: S1-S2, Peripheral Edema (negative) and Other (Tachycardic)
Respiratory: Wheeze (negative), Crackles (Faintly heard in bases during inspiration), Rhonchi (negative) and Non-Labored Respirations
GI: Soft, Non Distended, Non Tender and Normal Bowel Sounds
Neurology: Awake, Alert, Oriented and Tremors (negative)
Skin: Warm, Dry, Cyanosis (negative) and Jaundice (negative)
Labs/Micro/Reports
Lab Data
02/14/25 05:32
02/14/25 05:32
[2025-02-14] MEDS: VALIUM INJECTION 2 MG IV (09:34)
[2025-02-14] MEDS: PROTONIX IV 40 MG IV ×2 (09:34→19:05)
[2025-02-14] MEDS: NSS (PRESERVATIVE FREE) 10 ML IV ×2 (09:34→19:05)
[2025-02-14] MEDS: FOLVITE 1 MG PO (09:34)
--- NOTE | 2025-02-14 09:34 | W.PN.CD ---
Today's Communication / Plan
-
-Received a total of 7 units PRBCs; scheduled to receive another unit of PRBCs this a.m.
-Mild hemoglobin drop from 8.1 to 7.7.
-Still holding prasugrel and aspirin for now with severe bleeding.
-Resume antiplatelet once safe from a hemostasis standpoint; after discussion with Interventional Cardiology, will likely place on aspirin 81 mg daily monotherapy to decrease risk of rebleed.
Impression / Plan
-
Acute anemia/GIB: severe
-This diagnosis is a threat to life.
-Secondary to bleeding duodenal ulcer.
-Endoscopy 02/11/25: Spurting duodenal ulcer with spurting hemorrhage (Brent Class Ia). Hemostatic spray applied. Treatment not successful. Clips were placed.
-Patient went to IR 02/12/2025: Embolization of an actively bleeding branch of the distal gastroduodenal artery.
-Received a total of 7 units PRBCs; scheduled to receive another unit of PRBCs this a.m.
-Mild hemoglobin drop from 8.1 to 7.7.
-Still holding prasugrel and aspirin for now with severe bleeding.
-Resume antiplatelet once safe from a hemostasis standpoint; after discussion with Interventional Cardiology, will likely place on aspirin 81 mg daily monotherapy to decrease risk of rebleed.
-Further recommendations as per GI; General surgery consulted yesterday as well.
CAD with hx NSTEMI and stenting:
-Remains stable without anginal symptoms; telemetry/EKG stable.
-Cardiac cath 10/22/24: LUIS x 3 (proximal LAD, mid LAD, and OM2).
-Resume antiplatelet once safe from a hemostasis standpoint; after discussion with Interventional Cardiology, will likely place on aspirin 81 mg daily monotherapy to decrease risk of rebleed.
HTN:
-Blood pressure remains stable.
-Holding beta-lonny and ALEXUS inhibitor for now; permissive tachycardia given acute GI bleed with severe anemia--tachycardia improved.
HLD:
-Will resume statin once fully tolerating PO intake.
Subjective:
No cardiac complaints this a.m.
Data:
Cardiac cath 10/22/24: PCI of the mid LAD, proximal LAD, and OM2
Cardiac cath 10/21/24: LM: There is an eccentric 20-30% distal vessel stenosis. LAD: Large vessel giving rise to a large D1 and moderate caliber D2. There is a 50% calcified proximal stenosis and a long up to 70% calcified stenosis in the mid vessel
ending just at the D2 to bifurcation. LCx: Moderate caliber vessel giving rise to moderate caliber OM1 and moderate caliber OM2. There is an long up to 80% stenosis spanning from the mid circumflex just before the OM 2 into the OM2 itself. RCA: Very
large vessel giving rise to a large RPDA and two large RPL branches. There is mild diffuse disease.
Echo 10/22/24: Normal biventricular size and systolic function without regional wall motion abnormality. LV ejection fraction is 55-60% by Lugo's method of discs. Normal diastolic function. Mild aortic regurgitation. Possible small PFO noted on
color flow Doppler.
Physical Exam
Vital Signs/Labs
Vital Signs
Temp Pulse Resp BP Pulse Ox
98.3 F 76 19 131/71 98
02/14/25 07:55 02/14/25 07:00 02/14/25 07:00 02/14/25 07:00 02/14/25 07:00
02/13/25 02/14/25 02/15/25
06:59 06:59 06:59
Actual Weight 86 kg 86.4 kg
02/14/25 05:32
02/14/25 05:32
PT 16.9 Sec (11.4-14.6) H 02/13/25 08:28
INR 1.35 02/13/25 08:28
APTT 24.1 Sec (23.4-35.0) 02/13/25 08:28
Magnesium 2.2 mg/dl (1.6-2.3) 02/14/25 05:32
02/14/25
05:32
[id number] Pept 770
Physical Exam
Constitutional: No acute distress and Comfortable
EENT: Anicteric and Moist mucous membranes
Cardiovascular: Rhythm & rate is regular, Pedal edema is absent, Systolic murmur absent and S1S2 is normal
Respiratory: Respiratory effort normal and Lungs clear to auscul.
GI: Soft
Neuro/Psych: AO x 3
Other: Skin (Warm, dry, intact)
Data Reviewed
-
Date of Service: February 14, 2025
EKG: Tracing Personally Visualized and interpreted (Telemetry: Sinus rhythm)
Labs: Labs Reviewed by me
[2025-02-14] MEDS: THIAMINE INJECTION 100 MG IV (09:48)
[2025-02-14 10:25] LABS: LDH 281 U/L (120-246)
--- NOTE | 2025-02-14 10:56 | PTCARENOTE ---
1 unit PRBCs hung, no s/s transfusion reaction at 15 min check. Pt calm and cooperative, visiting with sister at bedside. Plan was discussed with Dr. Justice, family requesting pt be counseled on ETOH cessation. Warm handoff consult placed and
BCARES called.
--- NOTE | 2025-02-14 11:59 | W.PN.GI.CBS2 ---
Today's Communication / Plan
-
Hgb has come up to 7-8 range and remained there s/p 4 units PRBC yesterday
Getting 1 more unit currently
BUN down to 29
Bleeding appears to be stopping
Cont to follow Hgb, cont protonix BID, increase to gtt if recurrent bleed
Assessment / Plan
-
64 y.o. male with CAD and recent NSTEMI on DAPT admitted with UGIB 2/2 duodenal ulcer.
UGIB 2/2 Duodenal ulcer
-EGD 02/11 with spurting DU (gael Class Ia), treated with epinephrine and 2 hemostatic clips without adequate hemostasis. Hemospray was then deployed, no bleeding at the end of procedure
-hemodynamically unstable with active GI Bleeding in AM of 02/12, CTA positive with active extravasation in the duodenal bulb
-s/p IR coil embolization of distal branch of GDA on 02/12
-he continues to require blood transfusions-has received a total of 7 units prbc and 2 units ffp
-continue PPI gtt
-recommend repeat CTA and surgical evaluation
-will discuss case with Dr. Jaquez for potential repeat EGD and attempt to place ovesco clip
-keep NPO
Impression:
UGIB due to spurting DU s/p epi/clip/hemospray 02/11 and IR embolization distal GDA 02/12
Subjective
Subjective
Date of Service: February 14, 2025
BMs less bloody appearing. Feeling better today
Objective
Data Reviewed
Laboratory Data:
Laboratory Results
02/14/25 05:32
Laboratory Results
PT 16.9 Sec (11.4-14.6) H 02/13/25 08:28
INR 1.35 02/13/25 08:28
APTT 24.1 Sec (23.4-35.0) 02/13/25 08:28
Phosphorus 3.2 mg/dl (2.5-4.5) 02/14/25 05:32
Magnesium 2.2 mg/dl (1.6-2.3) 02/14/25 05:32
Total Bilirubin 0.7 mg/dl (0.2-1.3) 02/14/25 05:32
AST Cancelled 02/13/25 14:00
ALT Cancelled 02/13/25 14:00
Alkaline Phosphatase Cancelled 02/13/25 14:00
Vital Signs and I&O:
Vital Signs
Temp Pulse Resp BP Pulse Ox
97.8 F 81 17 112/68 99
02/14/25 10:29 02/14/25 10:29 02/14/25 10:29 02/14/25 10:29 02/14/25 10:29
I&O
02/13/25 02/14/25 02/15/25
06:59 06:59 06:59
Intake Total 5614 / 5974 2430 / 2430 480 / 480
Output Total 1050 / 1200 1350 / 1350 650 / 650
Balance 4564 / 4774 1080 / 1080 -170 / -170
Physical Exam
Physical Exam
GI: Soft, Non Distended and Non Tender
--- NOTE | 2025-02-14 14:18 | W.PN.HOSP.TC ---
Today's Communication/Plan
-
Monitor hgb closely, transfuse as necessary
PPI IV, if recurrent bleed - PPI ggt
CLD
cont holding antiplatelets
Assessment / Plan
Assessment / Plan
Physical Exam
General: Well Developed, Well Nourished and No Apparent Distress
HEENT: NormoCephalic, Moist mucous membranes and Atraumatic
Respiratory: Clear
Cardiac: S1/S2 and Regular Rhythm; No Murmur or Rub
GI: Soft, Non Tender, Non Distended and Normal Bowel Sounds; No Organomegaly
Rectal: Deferred by Provider
Musculoskeletal: No Clubbing, No Cyanosis and No Edema
Skin: No Rash
Neuro: Nonfocal/grossly intact
# Upper GI bleeding secondary to aspirin/prasugrel
# Acute blood loss anemia
#Hemorrhagic shock, resolved - Received total 8u prbc so far
-Dark and bloody stools
-02/11 EGD - spurting duodenal ulcer with spurting hemorrhage. Hemostatic spray applied. Treatment not successful. Clips were placed.
--IR consulted - 02/12 - Successful embolization of an actively bleeding branch of the distal gastroduodenal artery
-Hgb continued to trend down 02/13 - transfused again; CTA with no active bleed; Surg consulted - NTD at this time
� 02/14, status post 4 units PRBC yesterday. Receiving 1 additional unit today
� Hemoglobin remains to have stabilized
-Cont to monitor Hgb
- NPO
- Protonix 40 twice daily, if repeat bleed, PPI drip
-Hold aspirin/prasugrel; resume once cleared by GI; most likely will switch to ASA, Plavix
-CBC [id number], patient hemodynamically stable
#CAD
# Recent NSTEMI status post PCI x 2 of LAD and OM 2 on 10/22
- Continue statin
- Hold aspirin/prasugrel for now
- Continue metoprolol
#Hyponatremia
-monitor with resuscitation
Essential hypertension
-Hold lisinopril for now
Alcohol use disorder
- Alcohol withdrawal protocol
- No signs of withdrawal currently
-BCARES consulted
Hypercholesteremia
Full code
DVT prophylaxis SCDs
Total Critical Care Time 52 minutes. I was immediately available to the patient and staff. I personally examined, reviewed labs, diagnostic images/reports, interpretations, treatment plans, discussed patient care with other providers and family
or caregivers (if patient is unable to make decisions), entered orders as appropriate and documented the medical record.
Anticipated Discharge: > 48 hours
Subjective/Interval History
-
Date of Service: February 14, 2025
Status post units PRBC yesterday, getting 1 more unit this morning
Objective Data
-
Labs:
Laboratory Results
02/14/25 02/14/25
05:32 14:15
WBC 11.0 H
Hgb 7.7 L Pending
Hct 21.6 L
Plt Count 74 L D
Sodium 127 L
Potassium 3.7
Chloride 103
Carbon Dioxide 25
BUN 29 H
Creatinine 0.9
Glucose 92
Calcium 7.5 L
Total Bilirubin 0.7
Vital Signs:
Vital Signs
Temp Pulse Resp BP Pulse Ox
98.3 F 76 17 133/68 99
02/14/25 12:27 02/14/25 14:00 02/14/25 14:00 02/14/25 14:00 02/14/25 12:27
I&O
02/13/25 02/14/25 02/15/25
06:59 06:59 06:59
Intake Total 5614 / 5974 2430 / 2430 1210 / 1210
Output Total 1050 / 1200 1350 / 1350 1000 / 1000
Balance 4564 / 4774 1080 / 1080 210 / 210
Review of Systems
-
History Source: Patient
All other systems: Not reviewed unless documented
Data Reviewed
-
Diagnostic Radiology: Report Reviewed by me
CT Scan: Report Reviewed by me
Labs: Labs Reviewed by me
[2025-02-14 14:36] LABS: Hemoglobin 8.4 g/dL (13.0-18.0)
[2025-02-14 14:46] LABS: Fibrinogen 275 MG/DL (199-459)
--- NOTE | 2025-02-14 16:29 | PTCARENOTE ---
14:00 hgb resulted 8.4, plan discussed with Dr. Bowie, order rec'd to recheck at 21:30. At 16:00, Pt assisted to sit up on edge of bed, dangle feet, which he tolerated well with minimal lightheadedness. Once resolved, pt stood at bedside, washed
self with CHG clothes, and transitioned to chair at bedside. Pt minimally RENEE, tolerated well. VSS. Pt reports feeling much better up out of the bed and wants to sit in chair as long as tolerable. Encouraged to exercise legs in chair while sitting.
Call tran and phone in reach. Pt advanced to FLD, he will order dinner when ready.
[2025-02-14] MEDS: LIPITOR 80 MG PO (17:46)
[2025-02-14] MEDS: ATIVAN 0.5 MG PO (17:46)
--- NOTE | 2025-02-14 20:34 | PTCARENOTE ---
Received patient oob to chair and watching television. AAOx4 and able to make his needs known. Plan of care for the shift reviewed with the patient. Questions answered pertaining to his hemoglobin. Sinus rhythm on the monitor. PIV with no blood
return. Shallow breathing with diminished breath sounds. +BS. Encouraged pt to call for assistance prior to standing up. Patient remains on recliner at this time. Call tran and personal belongings are within reach.
[2025-02-14 21:34] LABS: Hemoglobin 8.2 g/dL (13.0-18.0)
[2025-02-14] MEDS: MELATONIN 3 MG PO (21:40)
[2025-02-15] VITALS (17 sets, daily range): BP systolic 111–153; BP diastolic 63–119; BMI 26.6
--- NOTE | 2025-02-15 00:30 | PTCARENOTE ---
patient utilizes the call tran appropriately. Has intermittent sinus tachycardia with movement. Pt voids via the urinal.
--- NOTE | 2025-02-15 04:07 | PTCARENOTE ---
Patient reassessed. VSS on the monitor. No changes from the previous assessment. Labs drawn and sent.
[2025-02-15 04:33] LABS: Blood Urea Nitrogen 19 mg/dl (9-20); Calcium 7.5 mg/dl (8.4-10.2); Carbon Dioxide 24 mmol/L (22-30); Chloride 105 mmol/L (98-107); Estimated Creatinine Clearance 101 ml/min; Glucose 99 mg/dl (70-99); Magnesium 2.2 mg/dl (1.6-2.3); Potassium 3.8 mmol/L (3.5-5.1); Sodium 133 mmol/L (135-145); eGFR > 60.00
[2025-02-15 04:48] LABS: Hematocrit 22.9 % (39.0-52.0); Hemoglobin 7.7 g/dL (13.0-18.0); Mean Corp Hgb Conc. 33.6 g/dL (33.0-37.0); Mean Corpuscular Volume 87.7 fL (80.0-94.0); Platelet Count 70 10^3/uL (130-400); Red Cell Dist. Width 14.1 % (11.5-14.5)
[2025-02-15] MEDS: CALCIUM GLUCONATE 130 MG IV (05:35)
--- NOTE | 2025-02-15 05:51 | PTCARENOTE ---
Patient's hemoglobin resulted for 7.7 and calcium 7.5. COOPERATIVE MANAGER made aware. One unit PrBC and 3 grams calcium gluconate ordered.
PrBc transfusing.
--- NOTE | 2025-02-15 07:44 | W.PN.GI.CBS2 ---
Today's Communication / Plan
-
Hgb drifted down slightly overnight after 1 unit PRBC. Getting another unit today
BUN is decreasing down from 29 to 19. Bleeding is likely subsiding
Switch from BID protonix to gtt for today, hopefully to help clotting given recent DAPT
Restart ASA if Hgb remains stable, given recent stent in September
OK for full liquids
Assessment / Plan
-
64 y.o. male with CAD and recent NSTEMI 10/21/24 on DAPT admitted with UGIB 2/2 duodenal ulcer. Takes aleve few times a week, drinks few beers daily
02/10- 1 unit PRBC
02/11- 2 units PRBC
02/11- EGD with spurting DU (gael Class Ia), treated with epinephrine and 2 hemostatic clips without adequate hemostasis. Hemospray was then deployed, no bleeding at the end of procedure
02/12- 3 units PRBC
02/12 AM- hemodynamically unstable with active GI Bleeding, CTA positive with active extravasation in the duodenal bulb
02/12- s/p IR coil embolization of distal branch of GDA
02/13- 4 units PRBC, 2 units FFP
02/14- 1 unit PRBC
Impression:
UGIB due to spurting DU s/p epi/clip/hemospray 02/11 and IR embolization distal GDA 02/12
Recent NSTEMI on ASA and Effient
Subjective
Subjective
Date of Service: February 15, 2025
Had small dark red BM yesterday. Tolerated full liquids
Objective
Data Reviewed
Laboratory Data:
Laboratory Results
02/15/25 03:53
02/15/25 03:53
Laboratory Results
PT 16.9 Sec (11.4-14.6) H 02/13/25 08:28
INR 1.35 02/13/25 08:28
APTT 24.1 Sec (23.4-35.0) 02/13/25 08:28
Phosphorus 3.1 mg/dl (2.5-4.5) 02/15/25 03:53
Magnesium 2.2 mg/dl (1.6-2.3) 02/15/25 03:53
Total Bilirubin 0.7 mg/dl (0.2-1.3) 02/14/25 05:32
AST Cancelled 02/13/25 14:00
ALT Cancelled 02/13/25 14:00
Alkaline Phosphatase Cancelled 02/13/25 14:00
Vital Signs and I&O:
Vital Signs
Temp Pulse Resp BP Pulse Ox
97.5 F 73 13 136/71 96
02/15/25 07:14 02/15/25 07:00 02/15/25 07:00 02/15/25 06:05 02/15/25 07:00
I&O
02/14/25 02/15/25 02/16/25
06:59 06:59 06:59
Intake Total 2430 / 2430 1690 / 1690
Output Total 1350 / 1350 2250 / 2250
Balance 1080 / 1080 -560 / -560
Physical Exam
Physical Exam
GI: Soft, Non Distended and Non Tender
--- NOTE | 2025-02-15 07:59 | W.PN.INTV ---
Today's Communication / Plan
Recommendations
Continue serial CBC with goal Hb >8 g/dL and platelets >50k
Hopefully can start ASA 81mg daily tomorrow, if ok with both GI and Cardiology
Plan to advance diet today to soft; hopefully by tomorrow he will be on regular diet
Given the extent of his duodenal ulcer, I will start him on carafate. Hopefully this will offer him additional protection once antiplatelet therapy is started
Continue PPI gtt, will defer to GI when ok to transition back to intermittent dosing
General surgery consulted - not a surgical candidate given negative repeat CTA A/P
Hold off on additional IVF as he may have had a component of dilutional anemia, trisha as he has been drinking lots of water
s/p IR for embolization of GDA on 02/12/2025
s/p hemostatic clips on 02/11/2025 during EGD
Large bore IV x2
GI + cardiology on board
Trend Na (improving)
Patient is stable for downgrade out of ICU to IMU. No additional recommendations at this time. [facility]ler/Pulmonary service will now sign off. Please reconsult if there are any additional questions/concerns, or if patient's respiratory status
deteriorates.
Assessment
-
Assessment: 64-year-old male with a past medical history of CAD with history of NSTEMI s/p PCI LUIS to mid LAD, proximal LAD and OM 2, possible small PFO seen on echo in October 2024, hypertension, hyperlipidemia, history of panic attacks and alcohol
use disorder who presents with dizziness that started 1 day [employer]. He initially thought that it was due to the medications that he is taking since his PA + stents placed few months ago. He has been having dark stool as well. He apparently had an
episode of mild bleeding 1 month after his NSTEMI which resolved within a day. Labs initially showed Hb 9.4, platelet count 219, sodium 131, BUN 41, troponin 0.015, and he initially was normotensive at 125/79, tachycardic to 107, afebrile,
respiratory rate 18 and saturating 100% on room air. Repeat hemoglobin dropped to 6.4 on the evening of 02/10, and 2 units of blood were ordered and he was upgraded to the ICU. GI was notified. Patient went to EGD on 02/11 and underwent clipping
x 2 with seemingly hemostasis. Unfortunately overnight from 02/11 - 02/12, patient developed recurrent bleeding and was upgraded back to ICU; manager education service now seeing the pt again for additional management/recommendations.
Chronic conditions [employer]: CAD, hypertension, alcohol use disorder, hypercholesterolemia, history of anxiety/panic attacks
Impression:
#Acute upper gastrointestinal hemorrhage with spurting duodenal ulcer s/p hemostatic spray + hemostatic clips x 2 (02/11) + IR embolization with multiple coils to distal GDA (02/12)
#2V-CAD with NSTEMI in September 2024 s/p PCI LUIS into the proximal and mid LAD + OM2 on prasugrel + ASA as an outpatient (on prasugrel as it is affordable for him)
#Alcohol use disorder
#Hyperlipidemia
#Hypertension
Plan:
- Large bore IV x2
- PPI 40mg IV BID now changed to PPI gtt per GI
- Underwent EGD on 02/11 and found to have red blood in stomach and spurting duodenal ulcer with spurting hemorrhage - hemostatic spray without hemostasis and 2 hemostatic clips successfully placed
- Became symptomatic on the evening of 02/11 and underwent CTA abdomen/pelvis showing active GI bleed in the duodenal bulb near the hemostatic clips - went down to IR and there was active contrast extravasation seen from branch of the distal GDA
adjacent to endoscopy clip --> coil embolization performed using several 2 and 3 mm detachable coils
- Due to continued instability of his Hb on 02/13, GI recommended surgery consult --> I spoke with Dr. Espinal, and an additional 2 units PRBC transfusion was ordered/given and repeat CTA abd/pelvis performed --> there was no evidence of an active
GI bleed; hence, patient not deemed a surgical candidate
- Now on full liquid diet --> if Hb today remains stable then will advance diet further to soft diet. Hopefully he can start regular diet tomorrow
- Continue to monitor Hb with serial H/H
- Transfuse to keep Hb >8g/dL (given recent NSTEMI with stents x3 placed), keep plt>50k - -> may need unit of platelets +/- dDAVP to reverse the effect of ASA, but we will do this only if necessary based on trend of hemoglobin in light of his recent
coronary stents placed in September
- Hopefully we can start mono-antiplatelet therapy tomorrow with ASA 81mg once daily; will defer to Cardiology and GI
- Plan previously was to start ASA on 02/12, but given his worsening UGIB, ASA has been DC'd - -> now that his BUN is normal and Hb has remained stable, I believe that his GI bleed has fully resolved
- Anti-emetics as needed
- He has received total of 12 units PRBC since admission, with his 12th PRBC unit given this AM; also s/p 2 units FFP
- Pain control
- Keep MAP>65
- Monitor for signs of alcohol withdrawal; currently there is none
- Continue thiamine + folic acid
- Maintain SpO2 >90-94% using supplemental O2 if needed
- prn nebulized bronchodilators - not currently bronchospastic
- Incentive spirometer encouraged 10x per hour for at least 4 hrs a day
- Replete electrolytes with K>4, Mg>2
- Maintain euglycemia with goal BG 140-180; HbA1c: 5.6 on 10/21/2024
- DVT ppx: SCDs for now - -> if Hb remains stable tomorrow, then we should at very least start chemical DVT ppx with HSQ 5000 units q12hr
- Case was discussed today with security messenger + hospitalist
Patient is stable for downgrade out of ICU to IMU. No additional recommendations at this time. Bushler/Pulmonary service will now sign off. Thank you for allowing us to be involved in the care of this patient. Please reconsult if there are
any additional questions/concerns, or if patient's respiratory status deteriorates.
Data:
CTA abdomen/pelvis w/wo IV contrast 02/12/2025: CTA evidence for active gastrointestinal bleeding in the duodenal bulb near the hemostatic clips. Findings are secondary to bleeding from a duodenal ulcer in correlation with the recent endoscopy
report.
CTA abdomen/pelvis w/wo IV contrast 02/13/2025: No evidence for residual active GI bleed, with specific attention to the duodenal bulb; No other significant abnormality identified in the abdomen or pelvis within the limits of this exam
Total time spent today was 57 minutes for this encounter. Time includes reviewing laboratory test/imaging results, reviewing pertinent medical records, obtaining and reviewing medical history, performing an appropriate exam, ordering medications,
tests and procedures. Time also includes documentation of this encounter, coordinating patient care and communicating with other healthcare professionals. Total time does not include separately billed tests performed on this date of service.
Subjective Dataa
Subjective Data
Date of Service:
Date of Service: February 15, 2025
Chief Complaint: [facility] Follow Up
Subjective:
Patient seen this morning. He was transfused 1 unit overnight at 5:50 AM with hemoglobin earlier this morning of 7.7. No signs of bleeding or melena. He feels good this morning, continuing to feel better each day. Current heart rate 88. BUN
this morning on labs was normal at 19. He is currently on room air breathing comfortably. Would like to get up and walk around the room and possibly the unit today.
Review of Systems
General: Other (Negative unless mentioned above)
Objective Data
Data Reviewed
Vital Signs / I&O / Oxygen:
Vital Signs
Temp Pulse Resp BP Pulse Ox
97.4 F 74 16 147/71 96
02/15/25 11:04 02/15/25 08:23 02/15/25 08:23 02/15/25 08:23 02/15/25 07:00
Intake and Output
02/14/25 02/15/25 02/16/25
06:59 06:59 06:59
Intake Total 2430 / 2430 1690 / 1690 730 / 730
Output Total 1350 / 1350 2250 / 2250 300 / 300
Balance 1080 / 1080 -560 / -560 430 / 430
SaO2 96
Physical Exam
General: Respiratory Distress (negative), Comfortable, Chills (negative) and Sweats (negative)
HEENT: Normocephalic and Anicteric
Cardiovascular: S1-S2 and Peripheral Edema (negative)
Respiratory: Wheeze (negative), Crackles (Left base with inspiration), Rhonchi (negative) and Non-Labored Respirations
GI: Soft, Non Distended, Non Tender and Normal Bowel Sounds
Neurology: Awake, Alert, Oriented and Tremors (negative)
Skin: Warm, Dry, Cyanosis (negative) and Jaundice (negative)
Labs/Micro/Reports
Lab Data
02/15/25 03:53
02/15/25 03:53
[2025-02-15] MEDS: VITAMIN B1 100 MG PO (08:16)
[2025-02-15] MEDS: PROTONIX IV 40 MG IV (08:17)
[2025-02-15] MEDS: NSS (PRESERVATIVE FREE) 10 ML IV (08:17)
[2025-02-15] MEDS: THERAGRAN 1 TABLET PO (08:17)
[2025-02-15] MEDS: LOPRESSOR 12.5 MG PO ×2 (08:17→19:47)
[2025-02-15] MEDS: FOLVITE 1 MG PO (08:17)
--- NOTE | 2025-02-15 08:27 | PTCARENOTE ---
assumed care 0700; 1 unit of PRBC received for Hgb 7.7 VSS
--- NOTE | 2025-02-15 08:54 | W.PN.CD ---
Today's Communication / Plan
-
Hgb trended down
Monitor Hgb
Aspirin once OK from GI perspective
OOB and ambulate as able
Impression / Plan
-
Acute anemia/GIB: severe
-This diagnosis is a threat to life.
-Secondary to bleeding duodenal ulcer.
-Endoscopy 02/11/25: Spurting duodenal ulcer with spurting hemorrhage (Brent Class Ia). Hemostatic spray applied. Treatment not successful. Clips were placed.
-Patient went to IR 02/12/2025: Embolization of an actively bleeding branch of the distal gastroduodenal artery.
-Received a total of 7 units PRBCs; scheduled to receive another unit of PRBCs this a.m.
-Mild hemoglobin drop from 8.1 to 7.7.
-Still holding prasugrel and aspirin for now with severe bleeding.
-Resume antiplatelet once safe from a hemostasis standpoint; after discussion with Interventional Cardiology, aspirin 81 mg daily monotherapy to decrease risk of rebleed.
-Further recommendations as per GI; General surgery consulted yesterday as well.
CAD with hx NSTEMI and stenting:
-Remains stable without anginal symptoms; telemetry/EKG stable.
-Cardiac cath 10/22/24: LUIS x 3 (proximal LAD, mid LAD, and OM2).
-Resume antiplatelet once safe from a hemostasis standpoint; after discussion with Interventional Cardiology, will likely place on aspirin 81 mg daily monotherapy to decrease risk of rebleed.
HTN:
-Blood pressure remains stable.
-Holding beta-lonny and ALEXUS inhibitor for now; permissive tachycardia given acute GI bleed with severe anemia--tachycardia improved.
HLD:
-Will resume statin once fully tolerating PO intake.
Subjective:
No cardiac complaints this a.m.
Data:
Cardiac cath 10/22/24: PCI of the mid LAD, proximal LAD, and OM2
Cardiac cath 10/21/24: LM: There is an eccentric 20-30% distal vessel stenosis. LAD: Large vessel giving rise to a large D1 and moderate caliber D2. There is a 50% calcified proximal stenosis and a long up to 70% calcified stenosis in the mid vessel
ending just at the D2 to bifurcation. LCx: Moderate caliber vessel giving rise to moderate caliber OM1 and moderate caliber OM2. There is an long up to 80% stenosis spanning from the mid circumflex just before the OM 2 into the OM2 itself. RCA: Very
large vessel giving rise to a large RPDA and two large RPL branches. There is mild diffuse disease.
Echo 10/22/24: Normal biventricular size and systolic function without regional wall motion abnormality. LV ejection fraction is 55-60% by Lugo's method of discs. Normal diastolic function. Mild aortic regurgitation. Possible small PFO noted on
color flow Doppler.
Physical Exam
Vital Signs/Labs
Vital Signs
Temp Pulse Resp BP Pulse Ox
97.9 F 74 16 147/71 96
02/15/25 08:23 02/15/25 08:23 02/15/25 08:23 02/15/25 08:23 02/15/25 07:00
02/14/25 02/15/25 02/16/25
06:59 06:59 06:59
Actual Weight 190 lb 7.67 oz 190 lb 11.198 oz
02/15/25 03:53
02/15/25 03:53
PT 16.9 Sec (11.4-14.6) H 02/13/25 08:28
INR 1.35 02/13/25 08:28
APTT 24.1 Sec (23.4-35.0) 02/13/25 08:28
Magnesium 2.2 mg/dl (1.6-2.3) 02/15/25 03:53
02/14/25
05:32
Cos-C-[id number] Pept 770
Physical Exam
Constitutional: No acute distress and Comfortable
EENT: Anicteric
Cardiovascular: Rhythm & rate is regular and Pedal edema is absent
Respiratory: Respiratory effort normal and Lungs clear to auscul.
GI: Soft
Neuro/Psych: AO x 3
Data Reviewed
-
Date of Service: February 15, 2025
EKG: Tracing Personally Visualized and interpreted (sr)
Echo: Report Reviewed by me
Labs: Labs Reviewed by me
[2025-02-15] MEDS: PROTONIX 100 IV ×2 (10:17→19:05)
[2025-02-15 13:23] LABS: Hematocrit 28.1 % (39.0-52.0); Hemoglobin 9.5 g/dL (13.0-18.0); Mean Corp Hgb Conc. 33.8 g/dL (33.0-37.0); Mean Corpuscular Volume 83.4 fL (80.0-94.0); Platelet Count 77 10^3/uL (130-400); Red Cell Dist. Width 15.5 % (11.5-14.5)
--- NOTE | 2025-02-15 14:25 | W.PN.HOSP.TC ---
Today's Communication/Plan
-
PPI ggt
monitor hgb
dg to IMU
Assessment / Plan
Assessment / Plan
Physical Exam
General: Well Developed, Well Nourished and No Apparent Distress
HEENT: NormoCephalic, Moist mucous membranes and Atraumatic
Respiratory: Clear
Cardiac: S1/S2 and Regular Rhythm; No Murmur or Rub
GI: Soft, Non Tender, Non Distended and Normal Bowel Sounds; No Organomegaly
Rectal: Deferred by Provider
Musculoskeletal: No Clubbing, No Cyanosis and No Edema
Skin: No Rash
Neuro: Nonfocal/grossly intact
# Upper GI bleeding secondary to aspirin/prasugrel
# Acute blood loss anemia
#Hemorrhagic shock, resolved - Received total 9u prbc so far
-Dark and bloody stools
-02/11 EGD - spurting duodenal ulcer with spurting hemorrhage. Hemostatic spray applied. Treatment not successful. Clips were placed.
--IR consulted - 02/12 - Successful embolization of an actively bleeding branch of the distal gastroduodenal artery
-Hgb continued to trend down 02/13 - transfused again; CTA with no active bleed; Surg consulted - NTD at this time
� 02/14, status post 4 units PRBC yesterday. Receiving 1 additional unit today
� Hemoglobin remains to have stabilized
-Cont to monitor Hgb
- Diet to full liquids
- IV PPI drip for now, in effort to expedite clotting given recent DAPT
-Hold aspirin/prasugrel; resume once cleared by GI; most likely will switch to ASA +/- Plavix
-Monitor hgb daily
#CAD
# Recent NSTEMI status post PCI x 2 of LAD and OM 2 on 10/22
- Continue statin
- Hold aspirin/prasugrel for now
- Continue metoprolol
#Hyponatremia
-monitor with resuscitation
Essential hypertension
-Hold lisinopril for now
Alcohol use disorder
- Alcohol withdrawal protocol
- No signs of withdrawal currently
-BCARES consulted
Hypercholesteremia
Full code
DVT prophylaxis SCDs
Anticipated Discharge: > 48 hours
Subjective/Interval History
-
Date of Service: February 15, 2025
Sitting in chair, resting comfortably
Objective Data
-
Labs:
Laboratory Results
02/15/25 02/15/25
03:53 12:33
WBC 7.1 8.5
Hgb 7.7 L 9.5 L D
Hct 22.9 L 28.1 L
Plt Count 70 L 77 L
Sodium 133 L
Potassium 3.8
Chloride 105
Carbon Dioxide 24
BUN 19
Creatinine 0.8
Glucose 99
Calcium 7.5 L
Vital Signs:
Vital Signs
Temp Pulse Resp BP Pulse Ox
98.7 F 77 16 147/81 98
02/15/25 12:35 02/15/25 13:00 02/15/25 10:00 02/15/25 10:00 02/15/25 10:00
I&O
02/14/25 02/15/25 02/16/25
06:59 06:59 06:59
Intake Total 2430 / 2430 1690 / 1690 730 / 730
Output Total 1350 / 1350 2250 / 2250 300 / 300
Balance 1080 / 1080 -560 / -560 430 / 430
Review of Systems
-
History Source: Patient
All other systems: Not reviewed unless documented
Data Reviewed
-
Diagnostic Radiology: Report Reviewed by me
CT Scan: Report Reviewed by me
Labs: Labs Reviewed by me
[2025-02-15] MEDS: LIPITOR 80 MG PO (17:58)
--- NOTE | 2025-02-15 18:34 | PTCARENOTE ---
OOB chair for about 6 hours Ambulates around the unit with no dizziness. No episodes of bleed. BP stable tolerates diet. On Protonix qtt via left FA. New med: Daria
[2025-02-15] MEDS: CARAFATE 1 GRAM PO ×2 (19:03→21:51)
--- NOTE | 2025-02-15 20:05 | PTCARENOTE ---
cannot verify vitals captured prior to 1900.
--- NOTE | 2025-02-15 23:14 | PTCARENOTE ---
Received pt at 1900, sitting in chair, AAOx3. Back to bed now to sleep. Without complaints. SR on tele. BP 130s/70s. Afebrile. On RA, spo2 95%. Lungs CTA. + bowel sounds. Tolerating full liquid diet. No s/s bleeding. Voiding in bathroom or urinal.
Protonix gtt continues per orders.
[2025-02-16] VITALS (11 sets, daily range): BP systolic 132–167; BP diastolic 73–87; BMI 26.6
[2025-02-16] MEDS: TYLENOL 650 MG PO (02:27)
[2025-02-16] MEDS: PROTONIX 100 IV ×2 (04:31→15:16)
[2025-02-16 04:42] LABS: Hematocrit 24.8 % (39.0-52.0); Hemoglobin 8.8 g/dL (13.0-18.0); Mean Corp Hgb Conc. 35.5 g/dL (33.0-37.0); Mean Corpuscular Volume 79.5 fL (80.0-94.0); Platelet Count 81 10^3/uL (130-400); Red Cell Dist. Width 15.4 % (11.5-14.5)
[2025-02-16 04:59] LABS: Blood Urea Nitrogen 15 mg/dl (9-20); Calcium 7.8 mg/dl (8.4-10.2); Carbon Dioxide 27 mmol/L (22-30); Chloride 104 mmol/L (98-107); Estimated Creatinine Clearance 115 ml/min; Glucose 105 mg/dl (70-99); Magnesium 2.0 mg/dl (1.6-2.3); Potassium 3.7 mmol/L (3.5-5.1); Sodium 133 mmol/L (135-145); eGFR > 60.00
[2025-02-16] MEDS: LOPRESSOR 12.5 MG PO ×2 (08:44→19:50)
[2025-02-16] MEDS: CARAFATE 1 GRAM PO ×4 (08:45→21:27)
[2025-02-16] MEDS: THERAGRAN 1 TABLET PO (08:45)
[2025-02-16] MEDS: VITAMIN B1 100 MG PO (08:45)
[2025-02-16] MEDS: FOLVITE 1 MG PO (08:45)
--- NOTE | 2025-02-16 09:00 | W.PN.GI.CBS2 ---
Today's Communication / Plan
-
Hgb up to 9.5 from 7.7 after 1 unit PRBC. Down to 8.8 this am, but still appropriate 1g increase from yesterday
Cont protonix gtt one more day
If stable hgb in AM, ok to switch to PO BID
Cont diet
Bleeding appears to have stopped
Assessment / Plan
-
Summary: 64 y.o. male with CAD and recent NSTEMI 10/21/24 on DAPT admitted with UGIB 2/2 duodenal ulcer. Takes aleve few times a week, drinks few beers daily
02/10- 1 unit PRBC
02/11- 2 units PRBC
02/11- EGD with spurting DU (gael Class Ia), treated with epinephrine and 2 hemostatic clips without adequate hemostasis. Hemospray was then deployed, no bleeding at the end of procedure
02/12- 3 units PRBC
02/12 AM- hemodynamically unstable with active GI Bleeding, CTA positive with active extravasation in the duodenal bulb
02/12- s/p IR coil embolization of distal branch of GDA
02/13- 4 units PRBC, 2 units FFP
02/14- 1 unit PRBC
02/15- 1 unit PRBC
Impression:
UGIB due to spurting DU s/p epi/clip/hemospray 02/11 and IR embolization distal GDA 02/12
Recent NSTEMI on ASA and Effient
Subjective
Subjective
Date of Service: February 16, 2025
Feels well. No significant BMs. Denies abd pain
Objective
Data Reviewed
Laboratory Data:
Laboratory Results
02/16/25 04:27
02/16/25 04:27
Laboratory Results
PT 16.9 Sec (11.4-14.6) H 02/13/25 08:28
INR 1.35 02/13/25 08:28
APTT 24.1 Sec (23.4-35.0) 02/13/25 08:28
Phosphorus 3.9 mg/dl (2.5-4.5) 02/16/25 04:27
Magnesium 2.0 mg/dl (1.6-2.3) 02/16/25 04:27
Total Bilirubin 0.7 mg/dl (0.2-1.3) 02/14/25 05:32
AST Cancelled 02/13/25 14:00
ALT Cancelled 02/13/25 14:00
Alkaline Phosphatase Cancelled 02/13/25 14:00
Vital Signs and I&O:
Vital Signs
Temp Pulse Resp BP Pulse Ox
98.2 F 68 16 132/73 96
02/16/25 04:20 02/16/25 08:44 02/15/25 10:00 02/16/25 08:44 02/15/25 20:54
I&O
02/15/25 02/16/25 02/17/25
06:59 06:59 06:59
Intake Total 1690 / 1690 1210 / 1210
Output Total 2250 / 2250 1400 / 1400
Balance -560 / -560 -190 / -190
Physical Exam
Physical Exam
GI: Soft and Non Distended
--- NOTE | 2025-02-16 12:20 | W.PN.HOSP.TC ---
Today's Communication/Plan
-
PPI drip
Continue diet
Monitor hemoglobin
Aspirin as per clearance of GI, once hemoglobin stable
Assessment / Plan
Assessment / Plan
Physical Exam
General: Well Developed, Well Nourished and No Apparent Distress
HEENT: NormoCephalic, Moist mucous membranes and Atraumatic
Respiratory: Clear
Cardiac: S1/S2 and Regular Rhythm; No Murmur or Rub
GI: Soft, Non Tender, Non Distended and Normal Bowel Sounds; No Organomegaly
Rectal: Deferred by Provider
Musculoskeletal: No Clubbing, No Cyanosis and No Edema
Skin: No Rash
Neuro: Nonfocal/grossly intact
# Upper GI bleeding secondary to aspirin/prasugrel
# Acute blood loss anemia
#Hemorrhagic shock, resolved - Received total 9u prbc so far
-Dark and bloody stools
-02/11 EGD - spurting duodenal ulcer with spurting hemorrhage. Hemostatic spray applied. Treatment not successful. Clips were placed.
--IR consulted - 02/12 - Successful embolization of an actively bleeding branch of the distal gastroduodenal artery
-Hgb continued to trend down 02/13 - transfused again; CTA with no active bleed; Surg consulted - NTD at this time
� 02/14, status post 4 units PRBC yesterday. Receiving 1 additional unit today
� Hemoglobin remains to have stabilized
-Cont to monitor Hgb
- Diet to mechanical soft
- IV PPI drip for now, in effort to expedite clotting given recent DAPT and Carafate acute
-Hold aspirin/prasugrel; resume once cleared by GI; most likely will switch to ASA +/- Plavix
-Monitor hgb daily
#CAD
# Recent NSTEMI status post PCI x 2 of LAD and OM 2 on 10/22
- Continue statin
- Hold aspirin/prasugrel for now
- Continue metoprolol
#Hyponatremia
-monitor with resuscitation
Essential hypertension
-Hold lisinopril for now
Alcohol use disorder
- Alcohol withdrawal protocol
- No signs of withdrawal currently
-BCARES consulted
Hypercholesteremia
Full code
DVT prophylaxis SCDs
Anticipated Discharge: 24 - 48 hours
Subjective/Interval History
-
Date of Service: February 16, 2025
No bowel movement since yesterday
Objective Data
-
Labs:
Laboratory Results
02/16/25
04:27
WBC 5.9
Hgb 8.8 L
Hct 24.8 L
Plt Count 81 L
Sodium 133 L
Potassium 3.7
Chloride 104
Carbon Dioxide 27
BUN 15
Creatinine 0.7
Glucose 105 H
Calcium 7.8 L
Vital Signs:
Vital Signs
Temp Pulse Resp BP Pulse Ox
98.8 F 71 16 132/73 96
02/16/25 12:02 02/16/25 12:02 02/15/25 10:00 02/16/25 08:44 02/15/25 20:54
I&O
02/15/25 02/16/25 02/17/25
06:59 06:59 06:59
Intake Total 1690 / 1690 1210 / 1210
Output Total 2250 / 2250 1400 / 1400
Balance -560 / -560 -190 / -190
Review of Systems
-
History Source: Patient
All other systems: Not reviewed unless documented
Data Reviewed
-
Diagnostic Radiology: Report Reviewed by me
CT Scan: Report Reviewed by me
Labs: Labs Reviewed by me
--- NOTE | 2025-02-16 13:07 | W.PN.CD ---
Today's Communication / Plan
-
Discussed with GI will resume aspirin 81 mg tonight
Monitor hemoglobin
Impression / Plan
-
Acute anemia/GIB: severe
-This diagnosis is a threat to life.
-Secondary to bleeding duodenal ulcer.
-Endoscopy 02/11/25: Spurting duodenal ulcer with spurting hemorrhage (Brent Class Ia). Hemostatic spray applied. Treatment not successful. Clips were placed.
-Patient went to IR 02/12/2025: Embolization of an actively bleeding branch of the distal gastroduodenal artery.
- Hemoglobin 9.5 now 8.8 after another unit
-Still holding prasugrel and aspirin for now with severe bleeding.
-Resume antiplatelet once safe from a hemostasis standpoint; after discussion with Interventional Cardiology, aspirin 81 mg daily monotherapy to decrease risk of rebleed.
-Further recommendations as per GI; General surgery consulted yesterday as well.
CAD with hx NSTEMI and stenting:
-Remains stable without anginal symptoms; telemetry/EKG stable.
-Cardiac cath 10/22/24: LUIS x 3 (proximal LAD, mid LAD, and OM2).
-Resume antiplatelet once safe from a hemostasis standpoint; after discussion with Interventional Cardiology, will likely place on aspirin 81 mg daily monotherapy to decrease risk of rebleed.
HTN:
-Blood pressure remains stable.
-Holding beta-lonny and ALEXUS inhibitor for now; permissive tachycardia given acute GI bleed with severe anemia--tachycardia improved.
HLD:
-Will resume statin once fully tolerating PO intake.
Subjective:
No cardiac complaints this a.m. ambulating as able anxious to leave
Data:
Cardiac cath 10/22/24: PCI of the mid LAD, proximal LAD, and OM2
Cardiac cath 10/21/24: LM: There is an eccentric 20-30% distal vessel stenosis. LAD: Large vessel giving rise to a large D1 and moderate caliber D2. There is a 50% calcified proximal stenosis and a long up to 70% calcified stenosis in the mid vessel
ending just at the D2 to bifurcation. LCx: Moderate caliber vessel giving rise to moderate caliber OM1 and moderate caliber OM2. There is an long up to 80% stenosis spanning from the mid circumflex just before the OM 2 into the OM2 itself. RCA: Very
large vessel giving rise to a large RPDA and two large RPL branches. There is mild diffuse disease.
Echo 10/22/24: Normal biventricular size and systolic function without regional wall motion abnormality. LV ejection fraction is 55-60% by Lugo's method of discs. Normal diastolic function. Mild aortic regurgitation. Possible small PFO noted on
color flow Doppler.
Physical Exam
Vital Signs/Labs
Vital Signs
Temp Pulse Resp BP Pulse Ox
98.8 F 71 16 132/73 96
02/16/25 12:02 02/16/25 12:02 02/15/25 10:00 02/16/25 08:44 02/15/25 20:54
02/15/25 02/16/25 02/17/25
06:59 06:59 06:59
Actual Weight 190 lb 11.198 oz
02/16/25 04:27
02/16/25 04:27
PT 16.9 Sec (11.4-14.6) H 02/13/25 08:28
INR 1.35 02/13/25 08:28
APTT 24.1 Sec (23.4-35.0) 02/13/25 08:28
Magnesium 2.0 mg/dl (1.6-2.3) 02/16/25 04:27
02/14/25
05:32
Ykf-N-Ipfkjrskisl Pept 770
Physical Exam
Constitutional: No acute distress and Comfortable
EENT: Anicteric
Cardiovascular: Rhythm & rate is regular and Pedal edema is absent
Respiratory: Respiratory effort normal and Lungs clear to auscul.
GI: Soft
Neuro/Psych: AO x 3
Data Reviewed
-
Date of Service: February 16, 2025
EKG: Tracing Personally Visualized and interpreted (Sinus rhythm)
Labs: Labs Reviewed by me
--- NOTE | 2025-02-16 15:31 | PTCARENOTE ---
AAO x 3 No episodes of melena during this shift. OOB chair ambulates independently around the unit
[2025-02-16] MEDS: LIPITOR 80 MG PO (16:15)
--- NOTE | 2025-02-16 17:00 | PTCARENOTE ---
Addendum entered by Angie Tellez RN 02/16/25 19:42:
Pt with just one IV site in L forearm with Protonix infusing.
Original Note:
Assumed care of pt at 1630. Rec'd pt awake alert and oriented sitting oob in the chair. States he feels good. Denies pain or discomfort. Denies dizzness or headache. PALENCIA. Skin is pale pink wm and dry. Feet are cool to the touch. Respirs are
unlabored on RA with sats of 99%. BS are clear. Monitor SR. + pulses. DP pulses are weak. Tr to +1 pedal edema. VS as documented. ABd is soft with + BS. Denies nausea. Voiding in the bathroom. IV Protonix infusing at 10 ml/hr via L arm IV site.
Capped int intact L arm. Pt able to reposition himself. Walking around in the room on his own. Call tran reach. Plan of care reviewed.
--- NOTE | 2025-02-16 18:15 | PTCARENOTE ---
Pt ambulating in the hallway. Gait is steady. Commenting that it feels good to move around. No c/o dizziness.
[2025-02-16] MEDS: ASPIR LOW (ENTERIC COATED) 81 MG PO (19:50)
--- NOTE | 2025-02-16 22:31 | PTCARENOTE ---
Received pt at 1900, sitting in chair, AAOx3. Back to bed now to sleep. Without complaints. SR on tele. BP 130-140s/80s. Afebrile. On RA, spo2 99%. Lungs CTA. + bowel sounds. No s/s bleeding. Voiding in bathroom or urinal. Protonix gtt continues per
orders.
[2025-02-17] MEDS: PROTONIX 100 IV (00:52)
[2025-02-17 04:43] VITALS: BP 153/81
[2025-02-17 04:51] VITALS: BMI 25.9
[2025-02-17 05:11] LABS: Hematocrit 28.6 % (39.0-52.0); Hemoglobin 9.8 g/dL (13.0-18.0); Mean Corp Hgb Conc. 34.3 g/dL (33.0-37.0); Mean Corpuscular Volume 81.3 fL (80.0-94.0); Platelet Count 132 10^3/uL (130-400); Red Cell Dist. Width 15.2 % (11.5-14.5)
[2025-02-17 05:20] LABS: ALT (SGPT) 14 U/L (0-50); AST (SGOT) 19 U/L (17-59); Albumin 3.0 g/dl (3.5-5.0); Alkaline Phosphatase 57 U/L (38-126); Blood Urea Nitrogen 10 mg/dl (9-20); Calcium 8.4 mg/dl (8.4-10.2); Carbon Dioxide 27 mmol/L (22-30); Chloride 106 mmol/L (98-107); Estimated Creatinine Clearance 101 ml/min; Glucose 104 mg/dl (70-99); Potassium 4.1 mmol/L (3.5-5.1); Sodium 136 mmol/L (135-145); Total Protein 5.3 g/dl (6.3-8.2); eGFR > 60.00
--- NOTE | 2025-02-17 07:35 | PTCARENOTE ---
Pt called RN into the room to empty urinal. He seems very anxious & verbalizing how he wants his morning to go speaking rapidly. Left FA with Protonix drip @ 8mg/hr. Dr. Kelley arrived into the room and discontinue the Protonix drip and informed the
pt to take Protonix PO BID for 2 months then daily for life. He verbalized his understanding. He was also informed by Dr. Kelley to cut back on his alcohol misuse. I also informed him of other types of food items such as acidic, spicy foods and
carbonated beverages to avoid or limit for the prevention of a repeat admission of a GIB. He verbalized that he already looked up food items that would be beneficial to him and his recovery from a GIB. I informed him that alcohol misuse will play a
part in future GIB's & what a standard drink is, and that even if he cut back his alcohol misuse to daily, it would still be considered excessive drinking. He then said ' well I am [place] so.'. Supportive care provided. Safe environment maintained.
--- NOTE | 2025-02-17 07:50 | W.PN.CD ---
Today's Communication / Plan
-
Continue ASA
Resume Lisinopril tomorrow
OK for discharge from CV standpoint.
Impression / Plan
-
Acute anemia/GIB: severe
-This diagnosis is a threat to life.
-Secondary to bleeding duodenal ulcer.
-Endoscopy 02/11/25: Spurting duodenal ulcer with spurting hemorrhage (Brent Class Ia). Hemostatic spray applied. Treatment not successful. Clips were placed.
-Patient went to IR 02/12/2025: Embolization of an actively bleeding branch of the distal gastroduodenal artery.
-Hemoglobin stable today after ASA last PM
-Further recommendations as per GI
CAD with hx NSTEMI and stenting:
-Remains stable without anginal symptoms; telemetry/EKG stable.
-Cardiac cath 10/22/24: LUIS x 3 (proximal LAD, mid LAD, and OM2).
-Continue ASA 81mg daily
HTN:
-Blood pressure remains stable.
-Continue Metoprolol. Can resume home succinate 25mg daily.
-Restart Lisinopril 10mg daily tomorrow
HLD:
-Continue Atorvastatin
Subjective:
No recurrent bleeding. No BMs. No chest pain. Eager to leave.
Data:
Cardiac cath 10/22/24: PCI of the mid LAD, proximal LAD, and OM2
Cardiac cath 10/21/24: LM: There is an eccentric 20-30% distal vessel stenosis. LAD: Large vessel giving rise to a large D1 and moderate caliber D2. There is a 50% calcified proximal stenosis and a long up to 70% calcified stenosis in the mid vessel
ending just at the D2 to bifurcation. LCx: Moderate caliber vessel giving rise to moderate caliber OM1 and moderate caliber OM2. There is an long up to 80% stenosis spanning from the mid circumflex just before the OM 2 into the OM2 itself. RCA: Very
large vessel giving rise to a large RPDA and two large RPL branches. There is mild diffuse disease.
Echo 7/1/25: Normal biventricular size and systolic function without regional wall motion abnormality. LV ejection fraction is 55-60% by Lugo's method of discs. Normal diastolic function. Mild aortic regurgitation. Possible small PFO noted on
color flow Doppler.
Physical Exam
Vital Signs/Labs
Vital Signs
Temp Pulse Resp BP Pulse Ox
98.1 F 71 18 153/81 97
02/17/25 04:52 02/17/25 06:00 02/16/25 16:30 02/17/25 04:43 02/17/25 04:52
02/16/25 02/17/25 02/18/25
06:59 06:59 06:59
Actual Weight 190 lb 7.67 oz 185 lb 13.595 oz
02/17/25 04:41
02/17/25 04:41
PT 16.9 Sec (11.4-14.6) H 02/13/25 08:28
INR 1.35 02/13/25 08:28
APTT 24.1 Sec (23.4-35.0) 02/13/25 08:28
Magnesium 2.0 mg/dl (1.6-2.3) 02/16/25 04:27
02/14/25
05:32
Qjf-Z-Xrssotfbnct Pept 770
Physical Exam
Constitutional: No acute distress and Comfortable
Cardiovascular: Rhythm & rate is regular, Pedal edema is absent, S1S2 is normal and Murmur/rub/gallop absent
Respiratory: Respiratory effort normal and Lungs clear to auscul.
Neuro/Psych: AO x 3
Data Reviewed
-
Date of Service: February 17, 2025
Medical Decision Making: Reviewed Test Results, Test Interpretation and Review of Case with other Provider
EKG: Tracing Personally Visualized and interpreted
Echo: Report Reviewed by me
Labs: Labs Reviewed by me
[2025-02-17 07:54] VITALS: BP 150/82
--- NOTE | 2025-02-17 08:01 | W.PN.GI.CBS2 ---
Today's Communication / Plan
-
Bleeding has stopped.
Hgb up to 9.8
ASA restarted for recent stent
OK for d/c from GI standpoint
BID protonix for 2 months then daily for rest of life
Reinforced avoidance of NSAIDs and EtOH abstinence
Will sign off.
Assessment / Plan
-
Summary: 64 y.o. male with CAD and recent NSTEMI 10/21/24 on DAPT admitted with UGIB 2/2 duodenal ulcer. Takes aleve few times a week, drinks few beers daily
02/10- 1 unit PRBC
02/11- 2 units PRBC
02/11- EGD with spurting DU (gael Class Ia), treated with epinephrine and 2 hemostatic clips without adequate hemostasis. Hemospray was then deployed, no bleeding at the end of procedure
02/12- 3 units PRBC
02/12 AM- hemodynamically unstable with active GI Bleeding, CTA positive with active extravasation in the duodenal bulb
02/12- s/p IR coil embolization of distal branch of GDA
02/13- 4 units PRBC, 2 units FFP
02/14- 1 unit PRBC
02/15- 1 unit PRBC
Impression:
UGIB due to spurting DU s/p epi/clip/hemospray 02/11 and IR embolization distal GDA 02/12
Recent NSTEMI on ASA and Effient
Subjective
Subjective
Date of Service: February 17, 2025
No complaints overnight. Denies abd pain, bleeding. Tolerating diet
Objective
Data Reviewed
Laboratory Data:
Laboratory Results
02/17/25 04:41
02/17/25 04:41
Laboratory Results
PT 16.9 Sec (11.4-14.6) H 02/13/25 08:28
INR 1.35 02/13/25 08:28
APTT 24.1 Sec (23.4-35.0) 02/13/25 08:28
Phosphorus 3.9 mg/dl (2.5-4.5) 02/16/25 04:27
Magnesium 2.0 mg/dl (1.6-2.3) 02/16/25 04:27
Total Bilirubin 0.8 mg/dl (0.2-1.3) 02/17/25 04:41
AST 19 U/L (17-59) 02/17/25 04:41
ALT 14 U/L (0-50) 02/17/25 04:41
Alkaline Phosphatase 57 U/L (38-126) 02/17/25 04:41
Vital Signs and I&O:
Vital Signs
Temp Pulse Resp BP Pulse Ox
98 F 71 18 150/82 97
02/17/25 07:51 02/17/25 06:00 02/16/25 16:30 02/17/25 07:54 02/17/25 07:51
I&O
02/16/25 02/17/25 02/18/25
06:59 06:59 06:59
Intake Total 1210 / 1220 660 / 660
Output Total 1400 / 1400 1000 / 1000 300 / 300
Balance -190 / -180 -340 / -340 -300 / -300
Physical Exam
Physical Exam
GI: Soft, Non Distended and Non Tender
[2025-02-17] MEDS: LOPRESSOR 12.5 MG PO (09:08)
[2025-02-17] MEDS: CARAFATE 1 GRAM PO (09:08)
[2025-02-17] MEDS: ASPIR LOW (ENTERIC COATED) 81 MG PO (09:09)
[2025-02-17] MEDS: FOLVITE 1 MG PO (09:09)
[2025-02-17] MEDS: THERAGRAN 1 TABLET PO (09:09)
[2025-02-17] MEDS: VITAMIN B1 100 MG PO (09:09)
--- NOTE | 2025-02-17 10:16 | CM ---
KE previously saw patient and he had no interest in any substance abuse services. Attending aware.
--- NOTE | 2025-02-17 10:32 | W.PN.HOSP.TC ---
Today's Communication/Plan
-
PPI twice daily for 2 months
Repeat CBC in 1 week
Avoid NSAIDs and alcohol
Discharge
Assessment / Plan
Assessment / Plan
#Upper GI bleeding secondary to aspirin/prasugrel
#Acute blood loss anemia
#Hemorrhagic shock, resolved - Received total 9u prbc so far
-Dark and bloody stools
-02/11 EGD - spurting duodenal ulcer with spurting hemorrhage. Hemostatic spray applied. Treatment not successful. Clips were placed.
-IR consulted - 02/12 - Successful embolization of an actively bleeding branch of the distal gastroduodenal artery
-Hgb continued to trend down 02/13 - transfused again; CTA with no active bleed; Surg consulted - NTD at this time
-02/14, status post 4 units PRBC yesterday. Receiving 1 additional unit today
-Hemoglobin remains to have stabilized
Plan
-Diet to mechanical soft
-DC Effient, continue ASA due to recent PCI
-Repeat CBC as OP in 5-7 days
-Avoid NSAIDs and EtOH
#CAD s/p PCI LAD + OM
#Hypercholesteremia
-Recent NSTEMI status post PCI x 2 of LAD and OM 2 on 10/22
-Continue statin, beta lonny, ASA
-Discontinued Effient as above
-LDL goal < 70 for secondary prevention
#Essential hypertension
-Resume ACEi at discharge
#Alcohol use disorder
-Alcohol withdrawal protocol
-No signs of withdrawal currently
-[facility] consulted, Pt refused services
Full code
DVT prophylaxis SCDs
Discussed with GI and cardiology
Anticipated Discharge: Today
Subjective/Interval History
-
Date of Service: February 17, 2025
Seen and examined at the bedside. No acute events reported overnight. AFVSS this morning
Hemoglobin stable at 9.8. Was evaluated by [facility] of the weekend and refused services
Denies any complaints today.
Objective Data
-
Labs:
Laboratory Results
02/17/25
04:41
WBC 6.0
Hgb 9.8 L
Hct 28.6 L
Plt Count 132 D
Sodium 136
Potassium 4.1
Chloride 106
Carbon Dioxide 27
BUN 10
Creatinine 0.8
Glucose 104 H
Calcium 8.4
Total Bilirubin 0.8
AST 19
ALT 14
Alkaline Phosphatase 57
Vital Signs:
Vital Signs
Temp Pulse Resp BP Pulse Ox
98 F 79 18 150/82 98
02/17/25 07:51 02/17/25 09:08 02/16/25 16:30 02/17/25 09:08 02/17/25 08:00
I&O
02/16/25 02/17/25 02/18/25
06:59 06:59 06:59
Intake Total 1210 / 1220 660 / 660
Output Total 1400 / 1400 1000 / 1000 300 / 300
Balance -190 / -180 -340 / -340 -290 / -290
Review of Systems
-
History Source: Patient
All other systems: Reviewed and negative
Physical Exam
-
General: Well Developed, No Apparent Distress and Comfortable
HEENT: Normocephalic, Atraumatic and Moist Mucous Membranes
Respiratory: Clear to Auscultation and Non Labored Respirations; Negative Accessory Resp Muscle Use
Cardiac: Regular Rhythm and S1/S2; Negative Murmur, Rub or Gallop
GI: Soft, Nontender, Nondistended and Normal Bowel Sounds
Musculoskeletal: No Clubbing, No Cyanosis and No Edema
Skin: Warm and Dry; Negative Rash
Neuro: AO x 3, Nonfocal/Grossly Intact and Central Nerve's Intact
Psych: Calm
Data Reviewed
-
Labs: Labs Reviewed by me, Discussed with Physician (GI, Cards) and Discussed with Patient
[2025-02-17 10:52] VITALS: BP 136/82
--- NOTE | 2025-02-17 10:53 | PTCARENOTE ---
Pt's Sister Monica aware that [facility] was declined by her brother. She verbalized her disappointment and that his excessive drinking has been an ongoing family issue. Supportive care given.
--- NOTE | 2025-02-17 11:06 | CM ---
Patient has been medically cleared for discharge to home with no additional skilled services. Patient has declined VNA services and will not be homebound. Patient has arranged for transport home.
[2025-02-17] MEDS: PROTONIX IV (11:35)
[2025-02-17] MEDS: PROTONIX 40 MG PO (11:47)
--- NOTE | 2025-02-17 16:05 | W.DCSUMMARY ---
Discharge Summary
Discharge Data
Date of Admission: 02/10/25
Date of Discharge: 02/17/25
Total time spent discharging patient (in min): 36
-
Pending Results: No
Hospital Course
Discharging physician: Ar Sanchez DO
Discharge disposition: Home
Primary hospital diagnoses:
Hemorrhagic shock
ABLA s/p 9 unit PRBC
Upper GI bleed
Peptic ulcer disease
S/p EGD with clip hemostasis
Iron deficiency
Chronic discharge diagnoses:
CAD s/p PCI x 2 (LAD, OM1 branch)
Primary hypertension
Dyslipidemia
Alcohol use disorder
Hospital course:
64-year-old male that presented to the hospital with melena and acute blood loss anemia. Bleeding secondary to peptic ulcer disease in the context of NSAID and alcohol usage, DAPT for recent LAD and OM PCI. Upon arrival his antiplatelet therapy
was held and he received supportive blood transfusions ultimately of 9 unit PRBC total while in the hospital. Was evaluated by gastroenterology who performed EGD on 02/11/2025 that demonstrated spurting cratered duodenal ulcer Brent class Ia
classification at the duodenal bulb. Bleeding was temporized with epinephrine and hemostatic clips. Subsequently with signs of recurrent bleeding that necessitated IR embolization of his gastroduodenal artery on 02/12/2025. He achieved
hemostasis and hemoglobin stabilized. Iron studies demonstrated signs of iron deficiency with ferritin 25. Was recommended to continue oral iron supplement at time of discharge. Received IV PPI therapy with PPI drip in the hospital and there was
transition to oral pantoprazole 40 mg twice daily for 2 months then once daily thereafter. Recommend CBC 1 week after discharge. Was evaluated by [facility] team though patient refused any alcohol resources. Was discharged with B vitamin supplements
in the context of chronic alcohol use.
Consultants:
Gastroenterology�Tulio Kelley MD
Cardiology�Abhishek Mckeon MD
Pertinent imaging findings:
CTA A/P (02/12/2025)
IMPRESSION: CTA evidence for active gastrointestinal bleeding in the duodenal bulb near the hemostatic clips. Findings are secondary to bleeding from a duodenal ulcer in correlation with the recent endoscopy report.
CTA A/P (02/13/2025)
IMPRESSION:
1. No evidence for residual active GI bleed, with specific attention to the duodenal bulb.
2. No other significant abnormality identified in the abdomen or pelvis within the limits of this exam, as described above.
Procedures:
EGD (02/11/2025)
Findings:
-The Z-line was regular.
-A widely patent and non-obstructing Schatzki ring was found in the lower third of the esophagus.
-A small hiatal hernia was present.
-Red blood was found in the gastric body and in the gastric fundus. Lavage of the area was performed using a large amount, resulting in clearance with adequate visualization. No bleeding source found in the stomach.
-One spurting cratered duodenal ulcer with spurting hemorrhage (Brent Class Ia) was found in the duodenal bulb. Area was unsuccessfully injected with 6 mL of a 0.1 mg/mL solution of epinephrine for hemostasis. To stop active bleeding, two
hemostatic clips were successfully placed. 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 To stop active bleeding, multiple applications of hemostatic spray were used. There was no bleeding at the end of the procedure.
Abdominal arteriogram with embolization (02/12/2025)
IMPRESSION: Technically successful embolization of an actively bleeding branch of the distal gastroduodenal artery. See above.
Follow-up:
Family doctor within 1 week, CBC prescription provided
Gastroenterology within 2 weeks
Cardiology within 2 weeks
Discharge Plan
-
Patient Disposition: Home (Routine Discharge)
Discharge Diagnosis/Procedures: Hemorrhagic shock
Acute blood loss anemia
Upper GI bleed secondary to PUD
Use of antiplatelet therapy
CAD s/p PCI
Status post 9 unit PRBC transfusion
Iron deficiency
Condition: Fair
Diet: Low Cholesterol
Additional Diets: Avoid alcohol
Activity: As tolerated
Additional Activity: Monitor your stools for signs of red blood or melena
Driving Restrictions: No driving for 24 hours
Bathing Restrictions: None
Blood Work: CBC with differential and 1 week as outpatient, results sent to your family doctor
Activity Restrictions/Additional Instructions:
After discharge follow-up with the following providers:
- Family doctor within 1 week
- Medical Education Coordinator within 2 weeks, referral provided if needed
- Grounds Foreman in 1 month, referral provided as needed
Instructions: Bloody stools in adults
Referrals:
Joe Wilson MD, Resident [Family Provider, General] - in less than 1 week
Mohan Negro MD [Active, Cardiology] - in two weeks
Katelynn Kidd DO [Active, Gastroenterology] - in one month
Additional Discharge Medication Instructions: Continue pantoprazole 40 mg twice daily for 2 months then switch to once daily indefinitely
Continue folate and thiamine supplements daily
Metoprolol to tartrate was reduced from 25 mg to 12.5 mg twice daily
Prescriptions:
New
sucralfate 1 gram Tablet
1 g PO QID 7 Days Qty: 28 0RF
folic acid 1 mg Tablet
1 mg PO DAILY 30 Days Qty: 30 0RF
metoprolol tartrate 25 mg Tablet
12.5 mg PO BID 30 Days Qty: 30 0RF
thiamine mononitrate (vit B1) 100 mg Tablet
100 mg PO DAILY 30 Days Qty: 30 0RF
pantoprazole [Protonix] 40 mg tablet,delayed release (DR/EC)
40 mg PO BID 60 Days Qty: 120 0RF
ferrous sulfate 325 mg (65 mg iron) tablet,delayed release (DR/EC)
325 mg PO DAILY Qty: 30 0RF
Rx Instructions:
This medication can make your stool dark in color
Continued
psyllium Packet
1 packet PO DAILY
therapeutic multivitamin Tablet
1 tab PO DAILY
lisinopril 10 mg Tablet
10 mg PO DAILY
Glucosamine Chondroitin 550-30-1 mg Capsule
1 cap PO DAILY
Patient Comments:
Patient states he is only taking the Glucosamin, not chondroitin due to cost
atorvastatin 80 mg tablet
80 mg PO QPM
aspirin 81 mg tablet,delayed release (DR/EC)
81 mg PO DAILY
Discontinued
turmeric 400 mg Capsule
400 mg PO DAILY
metoprolol succinate 25 mg tablet extended release 24 hr
25 mg PO DAILY
prasugrel HCl 10 mg tablet
10 mg PO DAILY
Discharge Orders:
Discharge Patient (As Directed); Ordered 02/17/25
Ordered By: Ar Sanchez
Discharge Date and Time
Discharge Date/Time: 02/17/25 12:17
Print Language: NIGERIAN
== END 2025-02-17 12:17 | disposition home or self-care (01) | DRG 356 ==
LOC: ICU 12:54
PROVIDERS: Internal Medicine; Nurse Practitioner; Nurse Practitioner Family; Nurse Practitioner Primary Care; Radiology Diagnostic Radiology; ADMITTING PHYSICIAN Hospitalist; ATTENDING PHYSICIAN Internal Medicine; CONSULT PHYSICIAN Internal Medicine; CONSULT PHYSICIAN Internal Medicine Cardiovascular Disease; CONSULT PHYSICIAN Internal Medicine Critical Care Medicine; CONSULT PHYSICIAN Surgery; EMERGENCY PHYSICIAN Student in an Organized Health Care Education/Training Program; FAMILY PHYSICIAN Student in an Organized Health Care Education/Training Program
PROC: 30233N1 Transfusion of Nonautologous Red Blood Cells into Peripheral Vein, Percutaneous Approach (ICD-10-PCS; 2025-02-10)
PROC: 0W3P8ZZ Control Bleeding in Gastrointestinal Tract, Via Natural or Artificial Opening Endoscopic (ICD-10-PCS; 2025-02-11)
PROC: XW0G886 Introduction of Mineral-based Topical Hemostatic Agent into Upper GI, Via Natural or Artificial Opening Endoscopic, New Technology Group 6 (ICD-10-PCS; 2025-02-11)
PROC: B4121ZZ Fluoroscopy of Hepatic Artery using Low Osmolar Contrast (ICD-10-PCS; 2025-02-12)
PROC: 04L33DZ Occlusion of Hepatic Artery with Intraluminal Device, Percutaneous Approach (ICD-10-PCS; 2025-02-12)
PROC: 30233K1 Transfusion of Nonautologous Frozen Plasma into Peripheral Vein, Percutaneous Approach (ICD-10-PCS; 2025-02-13)
DX: K26.4 Chronic or unspecified duodenal ulcer with hemorrhage (principal); R57.8 Other shock; D62 Acute posthemorrhagic anemia; D68.32 Hemorrhagic disorder due to extrinsic circulating anticoagulants; I25.10 Atherosclerotic heart disease of native coronary artery without angina pectoris; I10 Essential (primary) hypertension; F10.10 Alcohol abuse, uncomplicated; E78.00 Pure hypercholesterolemia, unspecified; T45.525A Adverse effect of antithrombotic drugs, initial encounter; T39.015A Adverse effect of aspirin, initial encounter; F41.0 Panic disorder [episodic paroxysmal anxiety]; K22.2 Esophageal obstruction; K44.9 Diaphragmatic hernia without obstruction or gangrene; E61.1 Iron deficiency; I25.2 Old myocardial infarction; Z95.5 Presence of coronary angioplasty implant and graft; Z79.82 Long term (current) use of aspirin; Z79.02 Long term (current) use of antithrombotics/antiplatelets; Z80.0 Family history of malignant neoplasm of digestive organs
CPT/HCPCS: 36246; 37244; 74174; 75726; 76937; 80048; 80053; 81003; 81015; 82247; 82248; 82607; 82728; 82746; 82962; 83540; 83550; 83615; 83735; 83880; 84100; 84484; 85014; 85018; 85025; 85027; 85384; 85610; 85730; 86850; 86900; 86901; 86920; 86927; 93005; 99152; 99153; C1887; P9016; P9059; Q9967

== ENCOUNTER → 2025-02-25 08:19 | Outpatient (REF) | payer OTHER, SELFPAY ==
[2025-02-25 10:35] LABS: Hematocrit 30.7 % (39.0-52.0); Hemoglobin 9.9 g/dL (13.0-18.0); Mean Corp Hgb Conc. 32.2 g/dL (33.0-37.0); Mean Corpuscular Volume 84.8 fL (80.0-94.0); Nucleated Red Blood Cells % 0 % (-); Platelet Count 412 10^3/uL (130-400); Red Cell Dist. Width 14.3 % (11.5-14.5)
== END ==
LOC: HWLAB 08:19
PROVIDERS: ATTENDING PHYSICIAN Internal Medicine; FAMILY PHYSICIAN Student in an Organized Health Care Education/Training Program
DX: K92.2 Gastrointestinal hemorrhage, unspecified (principal)
CPT/HCPCS: 36415; 85025